=== PATIENT | female | born 1945 | race Caucasian/White ===

== ENCOUNTER → 2017-03-22 12:14 | Emergency (ER) | payer MEDICARE, MEDICAID ==
[2017-03-22 16:25] VITALS: BP 0/0
== END | disposition left against medical advice (07) ==
LOC: ED 12:14
DX: H57.10 Ocular pain, unspecified eye (principal); Z53.21 Procedure and treatment not carried out due to patient leaving prior to being seen by health care provider

== ENCOUNTER 2017-08-30 12:37 | Emergency (ER) | payer MEDICARE, MEDICAID ==
--- NOTE | 2017-08-30 14:59 | RAD ---
HISTORY: Sputum and cough COMPARISONS: March 22, 2014 VIEWS: 2: Frontal and lateral views of the chest. FINDINGS: CARDIOMEDIASTINAL SILHOUETTE: The cardiomediastinal silhouette is normal. DAKOTAH: The dakotah are normal. PLEURA: The costophrenic angles are sharp. No pleural abnormalities are noted. LUNG PARENCHYMA: There is patchy alveolar opacification of the right lung base. ABDOMEN: The upper abdomen is clear. There is no subphrenic gas. BONES AND SOFT TISSUES: The patient is status post bilateral shoulder arthroplasty. OTHER: None. IMPRESSION: PATCHY ATELECTASIS VERSUS CONSOLIDATION OF THE RIGHT LOWER LUNG.
[2017-08-30] MEDS ORDERED: Albuterol HFA INHALER* 8 gm MDI INH ONE (15:04)
[2017-08-30] MEDS ORDERED: Levofloxacin TAB* 500 MG PO ONE ×2 (15:04→15:20)
[2017-08-30] MEDS ORDERED: Levofloxacin TAB* 500 MG ONE (15:21)
[2017-08-30 15:33] VITALS: BP 143/60
--- NOTE | 2017-09-06 16:45 | ED ---
Respiratory - HPI Summary HPI Summary: Patient presents to the ED with chief complaint of cough, with production of a thick yellow sputum. She states she tried CBD oil with a spray bottle 3 days ago and has been experiencing some worsening shortness of breath since that time. On arrival her vital signs are stable and she is satting at 98% on room air. History of severe sleep apnea, and is concerned about her worsening symptoms. She denies any other concerns on this date. Denies chest pressure, chest pain, sinus pressure, other upper respiratory complaints. - History of Current Complaint Chief Complaint: EDGeneral Stated Complaint: OCCASIONAL DIFFICULTY BREATHING Time Seen by Provider: 08/30/17 13:44 Hx Obtained From: Patient Onset/Duration: Sudden Onset Timing: Constant Initial Severity: Moderate Current Severity: Moderate Pain Intensity: 0 Character: Cough (Nonproductive), Dyspnea at Rest Sputum Amount: Scant Sputum Color: Yellow, Green Aggravating Factor(s): URI Associated Signs and Symptoms: SOB, URI - Risk Factors Status Asthmaticus Risk Factors: Negative Pulmonary Embolism Risk Factors: Negative Cardiac Risk Factors: Negative Tuberculosis Risk Factors: Negative - Allergy/Home Medications Allergies/Adverse Reactions: Allergies Allergy/AdvReac Type Severity Reaction Status Date / Time Adhesive Tape Allergy Mild Unknown Verified 05/08/16 13:33 Reaction Details MS Pregabalin [From Lyrica] Allergy Swelling Verified 05/08/16 13:33 Of Face,Lips,& Throat CT dye Allergy Intermediate Shortness Uncoded 02/03/15 02:58 of Breath PMH/Surg Hx/FS Hx/Imm Hx Previously Healthy: Yes Endocrine/Hematology History: Reports: Hx Diabetes Cardiovascular History: Reports: Hx Hypertension, Other Cardiovascular Problems/ Disorders - stroke no residual Denies: Hx Congestive Heart Failure Respiratory History: Reports: Hx Sleep Apnea - CPAP GI History: Reports: Hx Gastroesophageal Reflux Disease, Hx Ulcer History: Reports: Hx Kidney Stones - left kidney Musculoskeletal History: Reports: Hx Arthritis Sensory History: Reports: Hx Contacts or Glasses, Other Sensory Impairments - dry eyes sometimes upon blinking eyes could hemorrhage Opthamlomology History: Reports: Hx Contacts or Glasses, Other Sensory Impairments - dry eyes sometimes upon blinking eyes could hemorrhage Psychiatric History: Denies: Hx Eating Disorder, Hx of Violent Episodes Against Others - Surgical History Surgery Procedure, Year, and Place: BILATERAL SHOULDER REPLACEMENTS. Hysterectomy subtotal - Immunization History Hx Pertussis Vaccination: No Immunizations Up to Date: Unable to Obtain/Confirm Infectious Disease History: No Infectious Disease History: Reports: History Other Infectious Disease - streph eating of left foot (toes) Denies: Traveled Outside the [place] in Last 30 Days - Social History Occupation: Unemployed Lives: Alone Alcohol Use: Rare Hx Substance Use: No Substance Use Type: Reports: None Hx Tobacco Use: Yes Smoking Status (MU): Former Smoker Review of Systems Constitutional: Negative Negative: Fever, Chills, Fatigue Eyes: Negative Negative: Palpitations, Chest Pain Positive: Shortness Of Breath, Cough Positive: no symptoms reported, see HPI Musculoskeletal: Negative Skin: Negative Psychological: Normal All Other Systems Reviewed And Are Negative: Yes Physical Exam Triage Information Reviewed: Yes Vital Signs On Initial Exam: Initial Vitals Temp Pulse Resp BP Pulse Ox 98.1 F 68 16 139/61 95 08/30/17 12:51 08/30/17 12:51 08/30/17 12:51 08/30/17 12:51 08/30/17 12:51 Vital Signs Reviewed: Yes Appearance: Positive: Well-Appearing, Well-Nourished Skin: Positive: Warm, Skin Color Reflects Adequate Perfusion Head/Face: Positive: Normal Head/Face Inspection Eyes: Positive: EOMI, GREGORY, Conjunctiva Clear Neck: Positive: Supple, No Lymphadenopathy Respiratory/Lung Sounds: Positive: Clear to Auscultation Cardiovascular: Positive: RRR, Pulses are Symmetrical in both Upper and Lower Extremities Musculoskeletal: Positive: Normal, Strength/ROM Intact Neurological: Positive: Speech Normal - T Psychiatric: Positive: Affect/Mood Appropriate AVPU Assessment: Alert Diagnostics - Vital Signs Vital Signs Temp Pulse Resp BP Pulse Ox 08/30/17 15:31 99 F 66 17 143/60 97 08/30/17 12:51 98.1 F 68 16 139/61 95 - Laboratory Lab Statement: Any lab studies that have been ordered have been reviewed, and results considered in the medical decision making process. Disposition - Course Course Of Treatment: During the course of treatment the patient was evaluated for shortness of breath. She is satting at 98% on room air on arrival. She is wheelchair bound. Severe sleep apnea. X-ray obtained and shows patchy atelectasis versus consolidation of the right lower lung. Due to her comorbidities, she is given antibiotics for possible early pneumonia. I have discussed that I do not believe this is due to the CBD oil, but I have advised that she discontinue. She is okay with plan and discharge and states she will follow up with her PCP regarding any worsening shortness of breath. - Diagnoses Provider Diagnoses: Shortness of breath Discharge - Discharge Plan Condition: Stable Disposition: HOME Prescriptions: Levofloxacin TAB* [Levaquin TAB*] 500 mg PO DAILY #10 tab Patient Education Materials: Pneumonia (ED) Referrals: Jey Duron MD [Primary Care Provider] - Additional Instructions: Please follow up with Dr. Oden next week As discussed, the x-ray is unclear if he may have a right lower lobe pneumonia I am placing you on preventative antibiotics for worsening symptoms Use the albuterol inhaler for shortness of breath
== END 2017-08-30 15:31 | disposition home or self-care (01) ==
LOC: ED 12:37
DX: R06.02 Shortness of breath (principal); J98.4 Other disorders of lung; Z87.891 Personal history of nicotine dependence; Z88.8 Allergy status to other drugs, medicaments and biological substances; Z91.041 Radiographic dye allergy status
CPT/HCPCS: 71046; 99282; A9270-GY

== ENCOUNTER 2018-03-31 10:33 | Emergency (ER) | payer MEDICARE, MEDICAID ==
[2018-03-31] MEDS ORDERED: NS 0.9% 1000 ML* 1,000 ML IV ONE (10:57)
--- NOTE | 2018-03-31 11:04 | ED ---
Abdominal Pain/Female - HPI Summary HPI Summary: This Pt is a 73 year old F with a chief complaint of RLQ and right flank pain since 03/30/18 PM. She states that last night she felt an "odd" but not severe pain in her right flank, and upon waking this AM she has been feeling "twinges" in her RLE, noting "tremendous" problems with her right knee, making standing and ambulation impossible for her today. Pt denies fever, N/V, hematuria, and rash. PMHx asymptomatic UTIs with pyelonephritis, paroxysmal Afib, mild CHF, hiatal hernia, and chronic pedal edema. Pt endorses chronic complex PTSD/ anxiety of hospitals. - History of Current Complaint Chief Complaint: EDAbdPain Stated Complaint: LOWER RT QUADRANT PAIN Time Seen by Provider: 03/31/18 10:41 Hx Obtained From: Patient Onset/Duration: Sudden Onset, Lasting Hours, Still Present, Worse Since - this AM, new onset RLE pain Timing: Constant Severity Initially: Mild Severity Currently: Moderate Pain Intensity: 0 Pain Scale Used: 0-10 Numeric Location: Discrete At: RLQ Radiates: Yes Radiates to: Flank Aggravating Factor(s): Nothing Alleviating Factor(s): Nothing Associated Signs and Symptoms: Negative: Fever, Urinary Symptoms, Nausea, Vomiting, Other: - rash Allergies/Adverse Reactions: Allergies Allergy/AdvReac Type Severity Reaction Status Date / Time Adhesive Tape Allergy Mild Unknown Verified 03/31/18 10:41 Reaction Details MS Pregabalin [From Lyrica] Allergy Swelling Verified 03/31/18 10:41 Of Face,Lips,& Throat CT dye Allergy Intermediate Shortness Uncoded 03/31/18 10:41 of Breath PMH/Surg Hx/FS Hx/Imm Hx Endocrine/Hematology History: Reports: Hx Diabetes Cardiovascular History: Reports: Hx Atrial Fibrillation, Hx Congestive Heart Failure, Hx Hypertension, Other Cardiovascular Problems/Disorders - stroke no residual Respiratory History: Reports: Hx Sleep Apnea - CPAP GI History: Reports: Hx Gastroesophageal Reflux Disease, Hx Ulcer History: Reports: Hx Kidney Infection, Hx Kidney Stones - left kidney, Other Problems/Disorders - UTIs with pyelonephritis Musculoskeletal History: Reports: Hx Arthritis, Other Musculoskeletal History - carpral tunnel, permanently dislocated right shoulder Sensory History: Reports: Hx Contacts or Glasses, Other Sensory Impairments - dry eyes sometimes upon blinking eyes could hemorrhage Denies: Hx Deafness Opthamlomology History: Reports: Hx Contacts or Glasses, Other Sensory Impairments - dry eyes sometimes upon blinking eyes could hemorrhage EENT History: Denies: Hx Deafness Psychiatric History: Reports: Hx Anxiety, Hx Post Traumatic Stress Disorder Denies: Hx Eating Disorder, Hx of Violent Episodes Against Others - Surgical History Surgery Procedure, Year, and Place: BILATERAL SHOULDER REPLACEMENTS. Hysterectomy subtotal Infectious Disease History: No Infectious Disease History: Reports: History Other Infectious Disease - streph eating of left foot (toes) Denies: Traveled Outside the [place] in Last 30 Days - Family History Known Family History: Positive: Cardiac Disease, Diabetes, Other - [place] Negative: Seizure Disorder - Social History Occupation: Disabled Lives: Alone Alcohol Use: Rare Hx Substance Use: No Substance Use Type: Reports: None Hx Tobacco Use: Yes Smoking Status (MU): Former Smoker Review of Systems Negative: Fever Positive: Abdominal Pain. Negative: Vomiting, Nausea Negative: hematuria Positive: Arthralgia, Myalgia, Decreased ROM, Edema Negative: Rash Positive: Anxious All Other Systems Reviewed And Are Negative: Yes Physical Exam - Summary Physical Exam Summary: Appearance: Well appearing, no pain distress Skin: warm, dry, reflects adequate perfusion Head/face: normal Eyes: EOMI, GREGORY ENT: normal Neck: supple, non-tender Respiratory: CTA, breath sounds present Cardiovascular: RRR, pulses symmetrical Abdomen: tender RLQ, soft Bowel: present Musculoskeletal: normal, strength/ROM intact. Mild bilateral pedal edema Neuro: normal, sensory motor intact, A&Ox3 Triage Information Reviewed: Yes Vital Signs On Initial Exam: Initial Vitals Temp Pulse Resp BP Pulse Ox 97.9 F 64 20 137/67 95 03/31/18 10:38 03/31/18 10:38 03/31/18 10:38 03/31/18 10:38 03/31/18 10:38 Vital Signs Reviewed: Yes Diagnostics - Vital Signs Vital Signs Temp Pulse Resp BP Pulse Ox 03/31/18 10:38 97.9 F 64 20 137/67 95 - Laboratory Result Diagrams: 03/31/18 11:07 03/31/18 11:07 Lab Statement: Any lab studies that have been ordered have been reviewed, and results considered in the medical decision making process. - Radiology CXR Xray Interpretation: No Acute Changes Radiology Interpretation Completed By: Radiologist - No active disease. Dr. James has reviewed this report. Knee XR Xray Interpretation: Positive (See Comments) Radiology Interpretation Completed By: Radiologist - 1. SEVERE OSTEOARTHRITIC CHANGE. 2. LATERAL SUBLUXATION OF THE PATELLA. Dr. James has reviewed this report. Knee XR 2 Xray Interpretation: No Acute Changes Radiology Interpretation Completed By: Radiologist - ADVANCED OSTEOARTHRITIS WITH LATERAL POSITIONING OF THE PATELLA, UNCHANGED. Dr. James has reviewed this report. - CT A/P CT Interpretation: No Acute Changes CT Interpretation Completed By: Radiologist - NONCONTRAST IMAGING DEMONSTRATES NO ACUTE CT FINDINGS. THERE IS NON OBSTRUCTIVE LEFT-SIDED NEPHROLITHIASIS WHICH IS LIKELY AN INCIDENTAL FINDING IT DOES NOT CORRELATE WITH THE PRESENTING SYMPTOMS. THE APPENDIX IS VISUALIZED AND APPEARS NORMAL. Dr. James has reviewed this report. - EKG 1117 Cardiac Rate: NL - 65 EKG Rhythm: Sinus Rhythm ST Segment: Normal Ectopy: None EKG Interpretation: No acute changes Re-Evaluation - Re-Evaluation First Eval Re-Evaluation Time: 13:30 Change: Unchanged Comment: Informed pt of subluxation of patella, tried to reduce but pt refused. Pt wants intubation, does not want to be conciously sedated. Second Eval Re-Evaluation Time: 19:04 Change: Improved Comment: Pt able to walk now, wants to go home, safe to discharge. Abdominal Pain Fem Course/Dx - Course Course Of Treatment: A 73-year-old F presents to the ED with a CC of RLQ pain since yesterday. (+) radiation to flank, and RLE pain preventing standing and ambulation. (-) rash, fever, N/V, hematuria. PMHx CHF, incontinentce, paroxysmal Afib, DM, hiatal hernia, 2x shoulder replacements, carparal tunnel, PTSD from hosptials. A CXR reveals no active disease. A RLE XR reveals 1. SEVERE OSTEOARTHRITIC CHANGE. 2. LATERAL SUBLUXATION OF THE PATELLA. A second RLE XR reveals the same findings as the first. A CT A/P reveals left sided nephrolithiasis but otherwise negative. An EKG reveals NSR at 65 BPM with no acute changes. In the ED course, pt was given nl saline. Pt shows a high BUN/ creat ratio, and a low urine specific gravity. Tried to reduce the subluxation patient complained of pain so called orthopedics for a consult for conscious sedation and reduction. As patient refused conscious sedation in the emergency room and wants to be intubated if we had to do any procedures onher - Diagnoses Differential Diagnosis: Positive: Appendicitis, Diverticulitis, Renal Colic, Urinary Tract Infection, Other - lf knee pain Provider Diagnoses: Abdominal pain, Left knee pain, Patellar subluxation - Provider Notifications Discussed Care Of Patient With: Federico Jha Time Discussed With Above Provider: 13:38 Instructed by Provider To: Other - Will see pt in ED in 2 hours. UPDATE: 1851: Will try to walk pt, have her pivot, if unable he recommends admission. Discharge - Sign-Out/Discharge Documenting (check all that apply): Patient Departure - discharge - Discharge Plan Condition: Stable Disposition: HOME Patient Education Materials: Abdominal Pain (ED), Knee Pain (ED) Referrals: Ashley Calzada MD [Primary Care Provider] - 3 Days Additional Instructions: Return to the emergency department for any new or worsening symptoms. - Billing Disposition and Condition Condition: STABLE Disposition: Home - Attestation Statements Document Initiated by Zuriibe: Yes Documenting Scribe: Reji Alvarado Provider For Whom Ayana is Documenting (Include Credential): Dr. Alan James MD Scribe Attestation: Reji Mao scribed for Dr. Alan James MD on 03/31/18 at 1935. Scribe Documentation Reviewed: Yes Provider Attestation: The documentation as recorded by the Reji nevarez accurately reflects the service I personally performed and the decisions made by me, Dr. Alan James MD
[2018-03-31 11:15] LABS: ABS Basophils 0 10^3/ul (0-0.2); ABS Eosinophils 0.1 10^3/ul (0-0.6); ABS Lymphocytes 1.5 10^3/ul (1.0-4.8); ABS Monocytes 0.5 10^3/ul (0-0.8); ABS Neutrophils 3.5 10^3/ul (1.5-7.7); ABS Nucleated RBC 0 10^3/ul; Eosinophil % 2.6 % (0-6); Hematocrit 38 % (35-47); Lymphocyte % 27.1 % (25-47); Mean Corpuscular HGB Conc 34 g/dl (31-36); Mean Corpuscular Hemoglobin 30 pg (27-31); Mean Corpuscular Volume 88 fL (80-97); Mean Platelet Volume 7.7 um3 (7.4-10.4); Nucleated Red Blood Cells % 0.1; Platelet Count 246 10^3/ul (150-450); Red Blood Count 4.36 10^6/ul (4.00-5.40); Red Cell Distribution Width 16 % (10.5-15); White Blood Count 5.7 10^3/ul (3.5-10.8)
[2018-03-31 11:48] LABS: INR 0.93 (0.77-1.02)
[2018-03-31 11:49] LABS: EGFR Non-African American 100.5 (>60)
--- NOTE | 2018-03-31 12:01 | RAD ---
INDICATION: Short of breath. CHF. COMPARISON: August 30, 2017 TECHNIQUE: An AP portable view obtained at 1125 hours is submitted. FINDINGS: Bones/Soft Tissues: There are no acute bony findings. There is shoulder arthroplasty Cardiomediastinal: The cardiomediastinal silhouette is normal. Lungs: There are no infiltrates. Pleura: There are no pleural effusions. Other: None IMPRESSION: NO ACTIVE DISEASE.
[2018-03-31 12:03] LABS: Urine Appearance Clear; Urine Blood Negative (Negative); Urine Color Straw; Urine Ketones Negative (Negative); Urine Protein Negative (Negative); Urine Specific Gravity 1.005 (1.010-1.030); Urine Urobilinogen Negative (Negative)
--- NOTE | 2018-03-31 12:52 | RAD ---
INDICATION: Left knee pain. TECHNIQUE: 4 views of the left knee were obtained. The study is limited. The patient was unable to cooperate for positioning. FINDINGS: There is lateral subluxation of the patella. No joint effusion or fracture is seen. There is severe osteoarthritic change in all 3 compartments. IMPRESSION: 1. SEVERE OSTEOARTHRITIC CHANGE. 2. LATERAL SUBLUXATION OF THE PATELLA.
--- NOTE | 2018-03-31 12:59 | RAD ---
INDICATION: Appendicitis COMPARISON: None TECHNIQUE: Noncontrast axial source images were acquired from the level hemidiaphragms to the symphysis pubis. By report there is a intravenous contrast allergy. No oral contrast was given per ED request. Lung bases: The lung bases are clear. There are surgical clips in the splenic hilar region. Liver: The liver is normal in size. Noncontrast imaging shows no evidence of a hepatic mass or ductal dilatation. Gallbladder: There are no calcified gallstones. There is no evidence of wall thickening or pericholecystic fluid.. Spleen: The spleen is normal in size. The noncontrast CT appearance is normal. Pancreas: Noncontrast imaging shows no pancreatic mass or ductal dilitation. Adrenal glands: No masses are identified. Kidneys/Bladder: There is a nonobstructive 3 mm lower pole left renal calculus There is no CT evidence of hydronephrosis. Noncontrast imaging shows no evidence of a renal mass. The bladder is unremarkable.. Adenopathy: There is no gross evidence of intraperitoneal or retroperitoneal adenopathy. Evaluation is limited without intravenous or oral contrast. Fluid collections: There are no free or localized fluid collections. Vessels: The aorta and iliac vessels are normal in caliber. There are no significant atherosclerotic changes. The IVC appears normal Pelvic organs: There is hysterectomy. There is no adnexal mass GI tract: Evaluation of the bowel is limited without oral contrast. There is prior gastric surgery. The small bowel is unremarkable. There are no acute CT bowel findings. There are scant diverticula. The appendix is visualized and appears normal. Soft tissues: No soft tissue abnormalities of the extraperitoneal abdomen or pelvis are identified. Osseous structures: There are no acute osseous findings. IMPRESSION: NONCONTRAST IMAGING DEMONSTRATES NO ACUTE CT FINDINGS. THERE IS NON OBSTRUCTIVE LEFT-SIDED NEPHROLITHIASIS WHICH IS LIKELY AN INCIDENTAL FINDING IT DOES NOT CORRELATE WITH THE PRESENTING SYMPTOMS. THE APPENDIX IS VISUALIZED AND APPEARS NORMAL.
--- NOTE | 2018-03-31 14:10 | RAD ---
INDICATION: Patellar dislocation. Reduction COMPARISON: March 31, 2018 TECHNIQUE: 2 views are submitted. FINDINGS: There is again advanced tricompartmental osteoarthritis with a genu varus deformity. The patella remains laterally positioned. There is no joint effusion IMPRESSION: ADVANCED OSTEOARTHRITIS WITH LATERAL POSITIONING OF THE PATELLA, UNCHANGED
[2018-03-31] MEDS ORDERED: busPIRone TAB* 10 MG PO ONE (14:57)
[2018-03-31] MEDS: ALPRAZolam TAB* 0.5 MG PO ONE ×2 (15:07→15:19)
[2018-03-31] MEDS ORDERED: traMADol TAB* 50 MG PO ONE (17:49)
[2018-03-31] MEDS ORDERED: Metoprolol Tartrate TAB* 25 MG PO ONE (17:52)
[2018-03-31] MEDS ORDERED: Naproxen TAB* 250 MG PO ONE (17:53)
[2018-03-31] MEDS ORDERED: Gabapentin TAB(NF) 600 MG PO ONE (17:53)
[2018-03-31] MEDS ORDERED: Lisinopril TAB* 10 MG PO ONE (18:06)
[2018-03-31 19:18] VITALS: BP 156/72
--- NOTE | 2018-03-31 23:38 | CONS ---
CONSULTATION REPORT: DATE OF CONSULT: 03/31/18 REASON FOR CONSULT: Left patella dislocation, question of. HISTORY OF PRESENT ILLNESS: The patient is a 73-year-old woman, obese, with multiple orthopedic complaints and chronic left knee pain, who presented to the emergency room at [facility] on 03/31/18 with right lower quadrant abdominal pain and right flank pain since the evening of 03/30/18, one day prior. While in the emergency room, the patient was adjusting her position on the stretcher and thought that her knee had dislocated or patella had dislocated. She developed left knee pain. She was unable to stand and pivot on that left knee. X-rays were obtained of the left knee and were readily showing patella lateral subluxation. Emergency room staff offered the patient a relocation procedure under conscious sedation, but the patient refused and wanted to be intubated. Orthopedic surgery consult was called. I was in a long operation. As soon as the operation was complete, I reported to the emergency room where I met the patient. The patient told me that she has chronic left knee pain, treated with naproxen and icing. At baseline, the patient uses a wheelchair, mechanized. She bears weight just to stand and pivot from location to location. The patient has seen orthopedic surgeons in the past regarding her left knee and she has been told that she is too obese for knee arthroplasty surgery. She states that she has had bilateral shoulder arthroplasty surgery in the past and that the right shoulder arthroplasty has been dislocated and painful for 8 years. After I examined her, the patient did admit that she was less painful than she had been several hours earlier, but she still thought that she was more painful than her baseline. The patient sustained no falls in the emergency room. There have been no recent falls that she reported to me at home. PAST MEDICAL HISTORY: Atrial fibrillation, diabetes, congestive heart failure, hypertension, stroke without residual, sleep apnea with CPAP use, gastroesophageal reflux disease, ulcer, kidney infection, kidney stones, urinary tract infections with pyelonephritis, osteoarthritis multiple joints, carpal tunnel syndrome bilaterally, anxiety, post traumatic stress disorder. PAST SURGICAL HISTORY: Bilateral shoulder arthroplasty, subtotal hysterectomy. ALLERGIES: ADHESIVE TAPE (unknown), PREGABALIN, LYRICA (swelling of face, lips and throat), CT SCAN DYE (shortness of breath). FAMILY HISTORY: Positive for cardiac disease, diabetes, cancer. SOCIAL HISTORY: The patient lives alone, rare alcohol use, disabled, former smoker. The patient is minimally mobile. She bears weight just to turn and pivot and uses a mechanized wheelchair. REVIEW OF SYSTEMS: Positive for abdominal pain, myalgia, pain in multiple joints, anxiety. Negative for fevers, sweats, chills or hematuria. Negative for new onset left lower extremity numbness or tingling. PHYSICAL EXAM: Vital signs at 10:38 a.m. on 03/31/18 demonstrates temperature 97.9 degrees Fahrenheit, pulse 64, respiratory rate 20, BP 137/67 and pulse oximetry 95% on room air. No acute distress. The patient is nontoxic appearing. Alert and oriented. The patient's mood was somewhat coarse. The patient almost immediately started complaining to me about her chronic knee pain and posttraumatic stress disorder as if they were my fault. The patient lying supine on stretcher in emergency department suite. The patient appeared comfortable while not moving. The patient is morbidly obese. Body mass index unavailable, but clearly greater than 40. Left knee exam showed no effusion. No soft tissue swelling or bruising. Skin is intact. Pain with palpation in the medial and lateral joint lines, passive range of motion, the knee was 10 to 80 degrees of flexion. Pain with terminal ranges of motion. Tenderness to palpation of the patellofemoral compartment. Neurovascularly intact distally. DIAGNOSTIC STUDIES/LAB DATA: Imaging: X-ray views, 4-views of the left knee obtained in the emergency room on 03/31/18 demonstrates severe rkji-kz-[id number] joint space narrowing of all 3 compartments medial, lateral and patello- femoral. There is significant lateral subluxation of the tibia on the fibula. I measure this to be 1.5 cm. There is no anterior to posterior subluxation of the knee joint. The patient has multiple calcifications and osteophytes about the patellofemoral compartment. Mackay view demonstrates [id number], joint space narrowing as well as position of the patella to the lateral aspect of the trochlear groove. However, or near entirety of the patella is located in the trochlear groove. There was significant osteophyte of the lateral aspect of the patella that is outside of the groove. ASSESSMENT: 1. Left knee severe osteoarthritis. 2. Left knee pain. 3. No evidence of left patella instability episode. PLAN: 1. The patient was quite fixated on the idea of her patella dislocating or subluxing when I first met her. 2. I explained to the patient that her patella is likely now in the place it always is. It would be unlikely that adjusting herself in her stretcher would cause a patella instability event. Likewise she would not be able to flex her knee from 10 to 80 degrees with a new onset instability event. Likewise her imaging shows the patella to be present in the trochlear groove. The patient seemed to understand and acknowledge. 3. We started to talk about the treatment spectrum for severe knee osteoarthritis. The patient is already taking a NSAID and icing her knees. The patient at first asked for a cortisone injection but was then uninterested in the cortisone injection when I told her it would take 2 to 3 days to work. 4. The patient then expressed interest at my urging at seeing if her knee had improved and she would be safe to return home. 5. The patient got up with nursing and was able to turn and pivot on her leg, so she felt comfortable going home. 6. The patient was undergoing a workup by ER staff for flank pain. The patient left against medical advise is my understanding, prior to the completion of that but I would defer to emergency room staff on this. 7. The patient is welcome to follow up with me in clinic for her severe left knee pain and osteoarthritis. I would be happy to see her anytime for what must be a very painful problem. [id number]/CPS #: [id number]
== END 2018-03-31 19:16 | disposition home or self-care (01) ==
LOC: ED 10:33
DX: R10.31 Right lower quadrant pain (principal); S83.103 Unspecified subluxation of unspecified knee; M25.562 Pain in left knee; X58.XXXA Exposure to other specified factors, initial encounter; Y92.9 Unspecified place or not applicable; Z87.891 Personal history of nicotine dependence
CPT/HCPCS: 36415; 71045; 74176; 80053; 81003; 83605; 83690; 84484; 85025; 85610; 85730; 93005; 99283; A9270-GY

== ENCOUNTER 2019-10-06 10:45 | Emergency (ER) | payer MEDICARE, MEDICAID ==
--- OUTSIDE RECORDS SUMMARY | 2019-10-06 10:55 | XMS REPORT ---
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 08-14 Malnoske cy cy RN (chronic) (chronic) (peripheral (peripheral ) ) Lymphedema, Lymphedema, Diagnosis Active 2014-08 [place] not not 08-14 Malnoske elsewhere elsewhere RN classified classified Pain in Pain in Diagnosis Active 2014-08 [place] left knee left knee 08-14 Malnoske RN Difficulty Difficulty Diagnosis Active 2014-08 [place] in walking, in walking, 08-14 Mal[place] not not RN elsewhere elsewhere classified classified Morbid Morbid Diagnosis Active 2014-08 [place] (severe) (severe) 08-14 Malnoske obesity due obesity due RN to excess to excess calories calories 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 [place] tic stress tic stress 08-14 Malnoske disorder, disorder, RN unspecified unspecified Obstructive Obstructive Diagnosis Active [place] sleep apnea sleep apnea Malnoske (adult) (adult) RN (pediatric) (pediatric) 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, disorder, Malnoske unspecified unspecified RN 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 RN Prsnl hx of Prsnl hx of Diagnosis Active [place] TIA (TIA), TIA (TIA), Malnoske and cereb and cereb RN infrc w/o infrc w/o resid resid deficits deficits Patient's Patient's Diagnosis Active [place] other other [place] noncomplian noncomplian RN ce with ce with medication medication regimen regimen [facility] rn long term care Diagnosis Active [place] (current) (current) [place] use of use of RN aspirin aspirin Respiratory treatments Respirator Resolve 2014-082016-09-25 Carmelita ordered y d 1-11 11:45:00 Dale [id number] Safety knowledge/s Safety Resolve 2016-02-08 Kayleigh kill d 09-15 15:04:00 Sinnigen deficit: pt 15:30: [id number] Diagnoses knowledge/s Diagnoses Active Tammee kill 09-15 [place] deficit: pt 15:30: an 00 Pain frequent Pain Mgmt Resolve 2018-10-21 Carmelita pain d 10-10 11:00:00 Dale 14:30: [id number] 00 Pain knowledge/s Pain Mgmt Resolve 2015-10-11 Carmelita kill d 10-10 14:30:00 Dale deficit: cg 14:30: [id number] 00 Cardio hypertensio Cardiovasc Resolve 2016-09-25 Carmelita n ular d 10-10 11:45:00 Dale 14:30: [id number] 00 Cardio knowledge/s Cardiovasc Resolve 2016-09-25 Carmelita kill ular d 10-10 11:45:00 Dale deficit: cg 14:30: [id number] 00 Respiratory dyspnea Respirator Resolve 2017-06-18 Carmelita present y d 10-10 11:47:00 Dale 14:30: [id number] 00 Respiratory oxygen Respirator Resolve 2017-06-18 Carmelita treatments y d 10-10 11:47:00 Dale in home 14:30: [id number] 00 Respiratory lung sounds Respirator Resolve 2016-05-01 Carmelita deficit y d 10-10 14:30:00 Dale 14:30: [id number] 00 Respiratory CPAP Respirator Resolve 2017-06-18 Carmelita treatments y d 10-10 11:47:00 Dale in home 14:30: [id number] 00 Respiratory knowledge/s Respirator Resolve 2015-10-11 Carmelita kill y d 10-10 14:30:00 Dale deficit: cg 14:30: [id number] 00 Nutrition knowledge/s Nutrition Resolve 2015-10-11 Carmelita kill d 10-10 14:30:00 Dale deficit: cg 14:30: [id number] 00 Neuro anxiety Neuro/Emot Resolve 2016-02-08 Carmelita present ion d 10-10 15:04:00 Dale 14:30: [id number] 00 Neuro depressive Neuro/Emot Resolve 2016-02-08 Carmelita feelings ion d 10-10 15:04:00 Dale present 14:30: [id number] 00 Neuro knowledge/s Neuro/Emot Resolve 2016-02-08 Carmelita kill ion d 10-10 15:04:00 Dale deficit: pt 14:30: [id number] 00 Neuro knowledge/s Neuro/Emot Resolve 2016-02-08 Carmelita kill ion d 10-10 15:04:00 Dale deficit: cg 14:30: [id number] 00 Activity knowledge/s Activity Resolve 2015-10-11 Carmelita kill d 10-10 14:30:00 Dale deficit: cg 14:30: [id number] 00 Safety safety Safety Resolve 2015-10-11 Carmelita hazards d 10-10 14:30:00 Dale present 14:30: [id number] 00 Safety fall risk Safety Resolve 2015-10-11 Carmelita factor d 10-10 14:30:00 Dale present 14:30: [id number] 00 Safety risk for Safety Resolve 2015-10-11 Carmelita hospitaliza d 10-10 14:30:00 Dale tion 14:30: [id number] 00 Diagnoses knowledge/s Diagnoses Active Carmelita kill 10-10 Dale deficit: cg 14:30: [id number] 00 Musculoskel knowledge/s Musculoske Resolve 2015-10-11 Carmelita etal kill letal d 10-10 14:30:00 Dale deficit: cg 14:30: [id number] 00 Nutrition knowledge/s Nutrition Resolve 2016-09-25 Kayleigh kill d 10-12 11:45:00 Sinnigen deficit: cg 15:30: [id number] 00 Safety safety Safety Active Kayleigh hazards - Sinnigen present 15:30: [id number] 00 Safety fall risk Safety Active Kayleigh factor - Sinnigen present 15:30: [id number] 00 Safety risk for Safety Active Kayleigh hospitaliza - Sinnigen tion 15:30: [id number] 00 Cardio edema Cardiovasc Resolve 2016-09-25 Carmelita ular d 3-18 11:45:00 Dale 15:30: [id number] 00 Pain frequent Pain Mgmt Unknown Moon pain 12-05 Danilo 16:31: [id number] 00 Pain knowledge/s Pain Mgmt Resolve 2016-02-08 Moon kill d 12-05 15:04:00 Danilo deficit: cg 16:31: [id number] 00 Cardio knowledge/s Cardiovasc Unknown Moon kill ular 12-05 Danilo deficit: cg 16:31: [id number] 00 Respiratory knowledge/s Respirator Resolve 2015-12-06 Moon kill y d 12-05 16:31:00 Danilo deficit: cg 16:31: [id number] 00 Integument skin Integument Resolve 2016-02-08 Moon integrity d 12-05 15:04:00 Danilo risk 16:31: [id number] 00 Elimination urinary Eliminatio Resolve 2016-02-08 Moon incontinenc n d 12-05 15:04:00 Danilo e 16:31: [id number] 00 Activity knowledge/s Activity Resolve 2016-02-08 Moon kill d 12-05 15:04:00 Danilo deficit: cg 16:31: [id number] 00 Respiratory knowledge/s Respirator Resolve 2016-02-08 Moon kill y d 12-20 15:04:00 Danilo deficit: cg 15:49: [id number] 00 Respiratory knowledge/s Respirator Unknown 2016-02-08 Kayleigh kill y 01-10 15:04:00 Sinnigen deficit: pt 15:30: [id number] 00 Medication injectable Meds Resolve 2016-02-08 Moon med d 02-07 15:04:00 Danilo assistance 15:04: [id number] required 00 Cardio hypertensio Cardiovasc Unknown Moon n ular 02-22 Danilo 09:45: [id number] 00 Elimination urinary Eliminatio Resolve 2016-02-23 Moon incontinenc n d 02-22 09:45:00 Danilo aggarwal 09:45: [id number] 00 Elimination ostomy Eliminatio Resolve 2016-04-17 Moon present n d 02-22 11:53:00 Danilo 09:45: [id number] 00 Elimination urinary Eliminatio Resolve 2016-04-17 Susan incontinenc n d 03-20 11:53:00 Damar e 10:03: [id number] 00 Neuro anxiety Neuro/Emot Resolve 2016-08-21 Moon present ion d 04-05 12:10:00 Danilo 15:49: [id number] 00 Neuro depressive Neuro/Emot Resolve 2016-08-21 Moon feelings ion d 04-05 12:10:00 Danilo present 15:49: [id number] 00 Neuro knowledge/s Neuro/Emot Resolve 2016-08-21 Moon kill ion d 04-05 12:10:00 Danilo deficit: pt 15:49: [id number] 00 Neuro knowledge/s Neuro/Emot Resolve 2016-08-21 Moon kill ion d 04-05 12:10:00 Danilo deficit: cg 15:49: [id number] 00 Activity ADL Activity Resolve 2016-06-19 Moon assistance d 04-05 11:30:00 Danilo required 15:49: [id number] 00 Activity knowledge/s Activity Resolve 2016-05-01 Moon kill d 04-05 14:30:00 Danilo deficit: cg 15:49: [id number] 00 Elimination urinary Eliminatio Resolve 2016-05-01 Susan incontinenc n d 04-24 14:30:00 Damar e 15:00: [id number] 00 Elimination urinary Eliminatio Resolve 2016-05-01 Susan frequency n d 04-24 14:30:00 Damar 15:00: [id number] 00 Respiratory lung sounds Respirator Unknown 2015-08 Susan deficit y 0-05 Damar 14:00: [id number] 00 Elimination urinary Eliminatio Resolve 2015-082016-05-15 Moon incontinenc n d 14:11:00 Danilo aggarwal 14:11: [id number] 00 Elimination urinary Eliminatio Resolve 2015-082016-05-29 Moon incontinenc n d 13:42:00 Danilo aggarwal 13:42: [id number] 00 Respiratory lung sounds Respirator Resolve 2015-082016-07-03 Susan deficit y d 08-05 14:12:00 Damar 12:38: [id number] 00 Respiratory CPAP Respirator Unknown 2015-08 Moon treatments y 08-06 Carrasco in home 14:31: [id number] 00 Respiratory dyspnea Respirator Unknown 2015-08 Moon present y 08-06 Carrasco 14:31: [id number] 00 Elimination urinary Eliminatio Resolve 2015-082016-06-06 Moon incontinenc n d 08-06 14:31:00 Carrasco e 14:31: [id number] 00 Integument skin Integument Active 2015-08 Moon integrity 09-02 Carrasco risk 14:12: [id number] 00 Elimination urinary Eliminatio Resolve 2015-082016-07-03 Moon incontinenc n d 09-02 14:12:00 Danilo e 14:12: [id number] 00 Elimination urinary Eliminatio Resolve 2015-082016-08-09 Moon incontinenc n d -14 10:32:00 Danilo aggarwal 12:00: [id number] 00 Respiratory lung sounds Respirator Resolve 2015-082016-08-21 Moon deficit y d 10-01 12:10:00 Danilo 10:43: [id number] 00 Cardio edema Cardiovasc Unknown Moon ular 08-09 Danilo 10:32: [id number] 00 Respiratory dyspnea Respirator Unknown Moon present y 08-09 Danilo 10:32: [id number] 00 Activity ADL Activity Resolve 2016-08-21 Moon assistance d 08-09 12:10:00 Danilo required 10:32: [id number] 00 Musculoskel transfer Musculoske Resolve 2016-09-25 Moon etal assistance letal d 08-09 11:45:00 Danilo required 10:32: [id number] 00 Musculoskel knowledge/s Musculoske Resolve 2016-09-25 Moon etal kill letal d 08-09 11:45:00 Danilo deficit: cg 10:32: [id number] 00 Nutrition nutritional Nutrition Resolve 2016-11-20 Moon restriction d 08-21 09:45:00 Danilo kirby 12:10: [id number] 00 Neuro depressive Neuro/Emot Resolve 2019-02-10 Moon feelings ion d 09-11 09:00:00 Danilo present 13:00: [id number] 00 Neuro anxiety Neuro/Emot Resolve 2019-02-10 Moon present ion d 09-11 09:00:00 Danilo 13:00: [id number] 00 Cardio edema Cardiovasc Resolve 2017-06-18 Moon ular d 10-07 11:47:00 Danilo 13:05: [id number] 00 Respiratory dyspnea Respirator Unknown Moon present y 10-07 Danilo 13:05: [id number] 00 Activity ADL Activity Resolve 2017-06-18 Moon assistance d 10-07 11:47:00 Danilo required 13:05: [id number] 00 Musculoskel transfer Musculoske Resolve 2016-10-23 Moon etal assistance letal d 10-07 11:30:00 Danilo required 13:05: [id number] 00 Respiratory treatments Respirator Resolve 2017-10-22 Susan ordered y d 10-30 12:00:00 Damar 11:00: [id number] 00 Nutrition knowledge/s Nutrition Resolve 2016-11-20 Susan kill d 10-30 09:45:00 Damar deficit: cg 11:00: [id number] 00 Respiratory dyspnea Respirator Unknown Susan present y 10-31 Damar 11:30: [id number] 00 Respiratory dyspnea Respirator Unknown Susan present y 11-13 Damar 13:45: [id number] 00 Respiratory dyspnea Respirator Unknown Purnima present y 11-27 Burgess 10:30: [id number] 00 Respiratory CPAP Respirator Unknown Purnima treatments y 4- Burgess in home 10:30: [id number] 00 Nutrition nutritional Nutrition Resolve 2017-05-21 Purnima restriction d 12-04 13:07:00 Burgess s 10:00: [id number] 00 Respiratory dyspnea Respirator Unknown Susan present y 12-11 Damar 12:15: [id number] 00 Test/Treatm tests Test/Injec Resolve 2017-12-31 Purnima ent ordered t/Rashard d 12-18 11:45:00 Burgess [id number] Respiratory dyspnea Respirator Unknown Susna present y 12-25 Damar 12:20: [id number] 00 Musculoskel transfer Musculoske Unknown Purnima etal assistance letal 01-01 Burgess required 09:45: [id number] 00 Musculoskel requires Musculoske Unknown Purnima etal human letal 01-01 Burgess assist to 09:45: [id number] leave home 00 Respiratory dyspnea Respirator Unknown Susan present y 01-08 Damar 11:50: [id number] 00 Respiratory lung sounds Respirator Unknown Susan deficit y 01-15 Damar 13:00: [id number] 00 Respiratory dyspnea Respirator Unknown Juliana present y 01-29 Wilbert 11:15: [id number] 00 Respiratory dyspnea Respirator Unknown Susan present y 02-19 Damar 10:38: [id number] 00 Cardio knowledge/s Cardiovasc Resolve 2017-09-30 Juliana kill ular d 03-05 11:00:00 Wilbert deficit: cg 12:13: [id number] 00 Respiratory dyspnea Respirator Unknown Susan present y 03-12 Damar 10:51: [id number] 00 Musculoskel requires Musculoske Unknown Juliana etal human letal 03-19 Wilbert assist to 11:56: [id number] leave home 00 Respiratory dyspnea Respirator Unknown Juliana present y 03-24 Wilbert 12:05: [id number] 00 Nutrition knowledge/s Nutrition Resolve 2017-05-21 Juliana kill d 03-24 13:07:00 Wilbert deficit: cg 12:05: [id number] 00 Respiratory dyspnea Respirator Unknown Tammee present y 04-02 Amina-Hor 11:38: an 00 Musculoskel requires Musculoske Resolve 2018-12-30 Juliana etal human letal d 04-02 09:56:00 Wilbert assist to 11:38: [id number] leave home 00 Respiratory dyspnea Respirator Unknown Susan present y 9 Damar 15:15: [id number] 00 Musculoskel transfer Musculoske Resolve 2018-12-30 Juliana etal assistance letal d 04-30 09:56:00 Wilbert required 13:23: [id number] 00 Respiratory dyspnea Respirator Unknown 2016-08 Susan present y 0- Damar 11:59: [id number] 00 Cardio knowledge/s Cardiovasc Resolve 2016-082017-09-30 [place] kill ular d 0-11 11:00:00 Malnoske deficit: pt 11:35: RN 00 Cardio hypertensio Cardiovasc Resolve 2016-082017-06-18 [place] n ular d 0-11 11:47:00 Malnoske 11:35: RN 00 Elimination urinary Eliminatio Resolve 2016-082017-05-21 [place] incontinenc n d 0-11 13:07:00 Malnoske e 11:35: RN 00 Elimination bowel Eliminatio Resolve 2016-082017-05-21 [place] incontinenc n d 0-11 13:07:00 Malnoske e 11:35: RN 00 Medication potential Meds Resolve 2016-082017-06-18 [place] clinically d 0-11 11:47:00 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 Respiratory dyspnea Respirator Unknown 2016-08 [place] present y 0-18 Malnoske 13:07: RN 00 Nutrition knowledge/s Nutrition Resolve 2016-082017-05-21 [place] kill d 0-18 13:07:00 Malnoske deficit: pt 13:07: RN 00 Musculoskel requires Musculoske Resolve 2016-082018-12-30 [place] etal special letal d 0-18 09:56:00 Malnoske transportat 13:07: RN ion 00 Respiratory dyspnea Respirator Unknown 2016-08 Susan present y 0-25 Damar 13:00: [id number] 00 Nutrition nutritional Nutrition Resolve 2016-082017-12-17 [place] restriction d 0-26 12:29:00 Malnoske s 14:20: RN 00 Nutrition knowledge/s Nutrition Resolve 2016-082017-12-17 [place] kill d 0-26 12:29:00 Malnoske deficit: pt 14:20: RN 00 Elimination urinary Eliminatio Resolve 2016-082017-06-18 [place] incontinenc n d 0- 11:47:00 Malnoske e 14:20: RN 00 Respiratory dyspnea Respirator Unknown 2016-08 Milagros present y 08-18 Alexandro Roya 12:53: [id number] 00 Respiratory dyspnea Respirator Resolve 2016-082018-01-28 Milagros present y d 09-01 11:42:00 Alexandro Roya 11:34: [id number] 00 Cardio edema Cardiovasc Resolve 2016-082018-12-30 [place] ular d 2-13 09:56:00 Malnoske 10:40: RN 00 Elimination urinary Eliminatio Resolve 2016-082017-08-27 [place] incontinenc n d 2-13 11:50:00 Malnoske e 10:40: RN 00 Activity ADL Activity Resolve 2016-082019-07-20 [place] assistance d 2-26 10:28:00 Malnoske required 09:45: RN 00 Respiratory pneumonia Respirator Resolve 2017-09-30 [place] y d 1- 11:00:00 Malnoske 09:50: RN 00 Elimination urinary Eliminatio Resolve 2017-09-30 Susan incontinenc n d 1- 11:00:00 Damar e 11:29: [id number] 00 Medication potential Meds Resolve 2018-03-25 [place] clinically d 2-21 11:00:00 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 Respiratory oxygen Respirator Resolve 2018-01-28 [place] treatments y d 2-27 11:42:00 Malnoske in home 11:00: RN 00 Respiratory CPAP Respirator Resolve 2018-01-28 Susan treatments y d 3-14 11:42:00 Damar in home 12:20: [id number] 00 Elimination urinary Eliminatio Resolve 2017-10-22 [place] incontinenc n d 3-21 12:00:00 Malnoske e 12:00: RN 00 Elimination urinary Eliminatio Resolve 2017-12-17 [place] incontinenc n d 4-18 12:29:00 Malnoske e 10:37: RN 00 Medication oral med Meds Resolve 2018-03-25 Juliana assistance d 11-28 11:00:00 Wilbert required 14:17: [id number] 00 Endo/Marquis anti-coagul Endo/Marquis Resolve 2018-12-30 [place] ation d 12-31 09:56:00 Malnoske therapy 11:45: RN 00 Nutrition nutritional Nutrition Resolve 2018-06-17 [place] restriction d 12-31 10:01:00 Malnoske s 11:45: RN 00 Elimination urinary Eliminatio Resolve 2018-01-28 [place] incontinenc n d 12-31 11:42:00 Malnoske e 11:45: RN 00 Respiratory lung sounds Respirator Resolve 2019-02-10 Tiki deficit y d 01-28 09:00:00 Guidelli 11:42: [id number] 00 OT: Self self-care OT: Active Keshia Care deficit Self-Care 02-12 Jeison 13:00: [id number] 00 OT: Self knowledge/s OT: Active Keshia Care kill Self-Care 02-12 Jeison deficit: pt 13:00: [id number] 00 Respiratory oxygen Respirator Resolve 2019-02-10 Lori treatments y d 02-25 09:00:00 [place]-Zos in home 08:32: h [id number] 00 Elimination urinary Eliminatio Resolve 2019-01-13 Lori incontinenc n d 02-25 09:45:00 Yakov-Zos e 08:32: h [id number] 00 Respiratory dyspnea Respirator Resolve 2019-02-10 Juliana present y d 03-25 09:00:00 Denny 11:00: [id number] 00 Medication oral med Meds Resolve 2018-06-17 Lori assistance d 04-22 10:01:00 Yakov-Zos required 10:16: h [id number] 00 Nutrition nutritional Nutrition Resolve 2017-082019-01-13 Lori restriction d 09-15 09:45:00 [place]-Zos s 10:25: h [id number] 00 Neuro impaired Neuro/Emot Resolve 2017-082019-07-20 Lori decision-ma ion d 2-20 10:28:00 Yakov-Zos johny 10:55: h [id number] 00 Neuro behavior Neuro/Emot Resolve 2017-082019-07-20 Lori problems ion d 2-20 10:28:00 [place]-Zos 10:55: h [id number] 00 Endo/Marquis glucose Endo/Marquis Resolve 2018-12-30 Laura testing d 2- 09:56:00 Violette, dependence 14:40: [id number] 00 Medication oral med Meds Resolve 2018-09-24 Laura assistance d 2- 14:40:00 Violette, required 14:40: [id number] 00 Endo/Marquis anti-coagul Endo/Marquis Resolve 2019-02-10 Juliana ation d 6-05 09:00:00 Arboleda therapy 09:50: 00 Musculoskel transfer Musculoske Resolve 2019-06-16 Juliana freedl assistance letal d 6- 10:30:00 Arboleda required 09:50: 00 Nutrition nutritional Nutrition Resolve 2019-02-10 Juliana restriction d 6- 09:00:00 Arboleda s 09:10: 00 Elimination urinary Eliminatio Resolve 2019-02-10 Juliana incontinenc n d 6- 09:00:00 Robles e 09:10: 00 Musculoskel requires Musculoske Resolve 2019-06-16 Juliana etal special letal d 8-07 10:30:00 Robles transportat 10:35: ion 00 Medication potential Meds Active Juliana clinically 8-20 Arboleda significant 11:05: medication 00 issue Cardio edema Cardiovasc Resolve 2018-082019-06-16 [place] ular d 0-02 10:30:00 Mal[place]ke 10:30: RN 00 Cardio knowledge/s Cardiovasc Resolve 2018-082019-06-16 [place] kill ular d 0-02 10:30:00 Malnoske deficit: pt 10:30: RN 00 Musculoskel requires Musculoske Resolve 2018-082019-06-16 [place] etal human letal d 0-02 10:30:00 Malnoske assist to 10:30: RN leave home 00 Pain frequent Pain Mgmt Resolve 2018-082019-06-16 [place] pain d 0-16 10:30:00 Malnoske 10:15: RN 00 Respiratory dyspnea Respirator Resolve 2018-082019-07-20 [place] present y d 0-16 10:28:00 Malnoske 10:15: RN 00 Respiratory oxygen Respirator Resolve 2018-082019-07-20 [place] treatments y d 0-16 10:28:00 Malnoske in home 10:15: RN 00 Elimination urinary Eliminatio Resolve 2018-082019-05-19 [place] incontinenc n d 0-16 10:15:00 Malnoske e 10:15: RN 00 Elimination urinary Eliminatio Resolve 2018-082019-06-16 Juliana incontinenc n d 0-30 10:30:00 Stacey e 11:00: [employer] 00 [id number] Respiratory CPAP Respirator Resolve 2018-082019-07-20 [place] treatments y d 1-13 10:28:00 Malnoske in home 10:30: RN 00 Cardio edema Cardiovasc Resolve 2018-082019-08-11 [place] ular d 2-11 10:22:00 Malnoske 10:15: RN 00 Musculoskel requires Musculoske Unknown 2018-08 [place] etal human letal 2-11 Malnoske assist to 10:15: RN leave home 00 Musculoskel requires Musculoske Resolve 2018-082019-07-20 [place] etal special letal d 2-11 10:28:00 Malnoske transportat 10:15: RN ion 00 Pain frequent Pain Mgmt Resolve 2018-082019-07-20 [place] pain d 2-17 10:28:00 Malnoske 10:28: RN 00 Respiratory knowledge/s Respirator Resolve 2018-082019-07-20 [place] kill y d 2-17 10:28:00 Malnoske deficit: pt 10:28: RN 00 Elimination urinary Eliminatio Resolve 2018-082019-07-20 [place] incontinenc n d 2-17 10:28:00 Malnoske e 10:28: RN 00 Elimination urinary Eliminatio Resolve 2018-082019-08-11 Juliana incontinenc n d 2-26 10:22:00 Stacey e 09:00: [employer] 00 [id number] Musculoskel requires Musculoske Active [place] etal human letal 08-11 Malnoske assist to 10:22: RN leave home 00 Musculoskel requires Musculoske Active 0 [place] etal special letal 08-11 Malnoske transportat 10:22: RN ion 00 Pain frequent Pain Mgmt Active [place] pain 2-14 Malnoske 10:30: RN 00 Activity ADL Activity Active [place] assistance 2-14 Malnoske required 10:30: RN 00 Allergies, Adverse Reactions, Alerts Allergy Allergy Type Status Severity Reaction(s) Onset Inactive Treating Comments Name Date Date Clinician CONT Unknown Active Unknown Reaction 2015-09 Mae Unknown -29 Gerard Lyrica Medication Active Unknown Reaction 2015-09 Mae Name ID - Gerard TAPE Unknown Active Unknown Reaction 2015-09 Mae Unknown -29 Gerard Medications Ordered Filled Start Stop Current Ordering Indication Dosage Frequency Signature Comments Components Medication Medication Date Date Medication? Clinician (SIG) Name Name clotrimazol clotrimazol 2014-08- No Roth 1 Unknown e 1 % e 1 % 08-14 Jan LOPEZ topical topical cream cream Flonase Flonase 2014-08 No Roth 1 Unknown Allergy Allergy 08-14 Jan LOPEZ Relief 50 Relief 50 mcg/actuati mcg/actuati on nasal on nasal spray,suspe spray,suspe nsion nsion quinapril quinapril 2014-08 No Roth 1 Unknown 20 mg 20 mg 08-14 Jan LOPEZ tablet tablet Restasis Restasis 2014-08 No Roth 1 drop Unknown 0.05 % eye 0.05 % eye 08-14 Jan LOPEZ drops in a drops in a dropperette dropperette omeprazole omeprazole 2014-08 No Roth 1 cap Unknown 20 mg 20 mg 08-14 Jan LOPEZ capsule,del capsule,del ayed ayed release release Pataday 0.2 Pataday 0.2 2014-08 No Roth 1 drop Unknown % eye drops % eye drops 08-14 Jan LOPEZ ALPRAZolam ALPRAZolam 2014-08 No Roth 1 tab Unknown 0.5 mg 0.5 mg 08-14 Jan LOPEZ tablet tablet clotrimazol clotrimazol 2014-08 No Roth 1 Unknown e-betametha e-betametha 08-14 Jan LOPEZ applica sone 1 sone 1 tion %-0.05 % %-0.05 % lotion lotion busPIRone busPIRone 2014-08- No Roth 1 Unknown 10 mg 10 mg 08-14 Jan LOPEZ tablet tablet metFORMIN metFORMIN 2014-08 No Roth 1 tab Unknown 1,000 mg 1,000 mg 08-14 Jan LOPEZ tablet tablet cyclobenzap cyclobenzap 2014-08- No Roth 1 tab Unknown rine 10 mg rine 10 mg 08-14 Jan LOPEZ tablet tablet gabapentin gabapentin 2014-08 No Roth - Unknown 600 mg 600 mg 09-07 Jan LOPEZ tabs tablet tablet naproxen naproxen 2014-08 No Roth 1 tab Unknown 500 mg 500 mg 09-07 Jan LOPEZ tablet tablet vit C 1,000 vit C 1,000 2014-08 No Roth 3000mg Unknown mg-rutin 50 mg-rutin 50 - Jan LOPEZ mg-hesper mg-hesper 50 50 mg-bioflv-r mg-bioflv-r ose ose tablet,ext. tablet,ext. release release Redfield 3 Redfield 3 2014-08 No Roth 2400mg Unknown Fish Oil Fish Oil - Jan LOPEZ 684 684 mg-1,200 mg mg-1,200 mg capsule,del capsule,del ayed ayed release release Glucosamine Glucosamine 2014-08 No Roth 1500mg Unknown 500 mg 500 mg 09-07- Jan LOPEZ tablet tablet magnesium magnesium 2014-08 No Roth 1600mg Unknown oxide 400 oxide 400 09-21 Jan LOPEZ mg (241.3 mg (241.3 mg mg magnesium) magnesium) tablet tablet traMADol 50 traMADol 50 2016- No Roth 50-75mg Unknown mg tablet mg tablet 08-25 Jan LOPEZ PROzac 20 PROzac 20 No Roth 1 cap Unknown mg capsule mg capsule 08-25 Jan LOPEZ metoprolol metoprolol 2014-08- No Roth 1 Unknown succinate succinate 08-14 Jan LOPEZ ER 25 mg ER 25 mg tablet,exte tablet,exte nded nded release 24 release 24 hr hr Glucosamine Glucosamine 2014-08 No Roth 1000mg Unknown 500 mg 500 mg 2- Jan LOPEZ tablet tablet metFORMIN metFORMIN 2014-08 No Roth 1 tab Unknown 1,000 mg 1,000 mg 08-14 Jan LOPEZ tablet tablet Oxygen Oxygen 2014-08 No Roth 2 L Unknown 08-14 Jan LOPEZ oxygen oxygen 2014-08 No Roth 2 Unknown 08-14 Jan LOPEZ liters Voltaren 1 Voltaren 1 2015- No Roth 4 grams Unknown % topical % topical 12-12 Jan LOPEZ gel gel cyclobenzap cyclobenzap 2014-08 No [place] 1 tab Unknown rine 10 mg rine 10 mg 08-14 ,Can tablet tablet Dinesh Voltaren 1 Voltaren 1 2018- No [place] 4 grams Unknown % topical % topical 12-12 Can LOPEZ gel Dinesh MSM 1,000 MSM 1,000 No [place] 1 tab Unknown mg tablet mg tablet 10-23 Can LOPEZ milk milk 2016- No [place] 2 caps Unknown thistle 175 thistle 175 10-23 Can LOPEZ mg tablet mg tablet Dinesh milk milk No [place] 1 Unknown thistle 350 thistle 350 10-30 Can LOPEZ capusle mg capsule mg capsule Dinesh (350 mg traMADol 50 traMADol 50 2016- No Roth 50-75mg Unknown mg tablet mg tablet 10-30 Jan LOPEZ aspirin 81 aspirin 81 No [place] 1 Unknown mg chewable mg chewable 11-29 Can LOPEZ tablet tablet tablet Dinesh (81 Mg) acetaminoph acetaminoph No [place] 2 Unknown en 500 mg en 500 mg 12-18 Can LOPEZ tablets tablet tablet Dinesh (1000mg ) busPIRone busPIRone 2016- No [place] 1 Unknown 10 mg 10 mg 01-01 Can LOPEZ tablet tablet Dinesh naproxen naproxen 2016- No [place] 1 tab Unknown 500 mg 500 mg 01-08 Can LOPEZ tablet,juan tablet,juan Dinesh yed release yed release busPIRone busPIRone No [place] 1 Unknown 10 mg 10 mg 5 Can LOPEZ tablet tablet Dinesh traMADol 50 traMADol 50 2018- No Keene 50-75mg Unknown mg tablet mg tablet 10-30 Can LOPEZ Vitamin D3 Vitamin D3 2016-08 No [place] 1,000 Unknown 1,000 unit 1,000 unit 0 Can LOPEZ Unit capsule capsule Dinesh levoFLOXaci levoFLOXaci 2017- No [place] 500mg Unknown n 500 mg n 500 mg 09-01 Can LOPEZ tablet tablet Dinesh naproxen naproxen No [place] 1 tab Unknown 500 mg 500 mg 01-08 Can LOPEZ tablet,juan tablet,juan Dinesh yed release yed release ALPRAZolam ALPRAZolam 2014-08 No Roth 1 tab Unknown 0.5 mg 0.5 mg 08-14 MDJan tablet tablet ginkgo ginkgo No [place] Unknown Unknown biloba 60 biloba 60 03-25 Can LOPEZ capsule mg capsule Dinesh lisinopril lisinopril 2017-08- No [place] Unknown Unknown 5 mg tablet 5 mg tablet 0- Ashley LOPEZ metoprolol metoprolol 2018- No Elsi Unknown Unknown succinate succinate 09-28 Ashley LOPEZ ER 50 mg ER 50 mg tablet,exte tablet,exte nded nded release 24 release 24 hr hr metoprolol metoprolol No Mauser Unknown Unknown tartrate 50 tartrate 50 5-30 MDJonatha mg tablet mg tablet n ashwagandha ashwagandha 2018-08 No [place] Unknown Unknown 600mg 600mg 1 Ashley LOPEZ Vital Signs Vital Name Observation Time Observation Value Comments SYSTOLIC mm[Hg] 2019-09-17 18:10:23 128 mm[Hg] mm[Hg] Method: Sit DIASTOLIC mm[Hg] 2019-09-17 18:10:23 74 mm[Hg] mm[Hg] Method: Sit PULSE 2019-09-17 18:10:23 84 /min /min RESP RATE 2019-09-17 18:10:23 16 /min /min TEMP 2019-09-17 18:10:23 98.1 [degF] Procedures This patient has no known procedures. Results This patient has no known results.
--- OUTSIDE RECORDS SUMMARY | 2019-10-06 10:55 | XMS REPORT ---
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 [place] (current) (current) [place] use of use of RN aspirin aspirin Respiratory treatments Respirator Resolve 2014-082016-09-25 Carmelita ordered y d 1-11 11:45:00 Dale [id number] Safety knowledge/s Safety Resolve 2016-02-08 Kayleigh kill d 09-15 15:04:00 Sinnigen deficit: pt 15:30: [id number] Diagnoses knowledge/s Diagnoses Active Tammee kill 09-15 [place] deficit: pt 15:30: an 00 Pain frequent Pain Mgmt Resolve 2018-10-21 Carmelita pain d 10-10 11:00:00 Dale 14:30: [id number] 00 Pain knowledge/s Pain Mgmt Resolve 2015-10-11 Carmelita kill d 10-10 14:30:00 Dale deficit: cg 14:30: [id number] 00 Cardio hypertensio Cardiovasc Resolve 2016-09-25 Carmelita n ular d 10-10 11:45:00 Dale 14:30: [id number] 00 Cardio knowledge/s Cardiovasc Resolve 2016-09-25 Carmelita kill ular d 10-10 11:45:00 Dale deficit: cg 14:30: [id number] 00 Respiratory dyspnea Respirator Resolve 2017-06-18 Carmelita present y d 10-10 11:47:00 Dale 14:30: [id number] 00 Respiratory oxygen Respirator Resolve 2017-06-18 Carmelita treatments y d 10-10 11:47:00 Dale in home 14:30: [id number] 00 Respiratory lung sounds Respirator Resolve 2016-05-01 Carmelita deficit y d 10-10 14:30:00 Dale 14:30: [id number] 00 Respiratory CPAP Respirator Resolve 2017-06-18 Carmelita treatments y d 10-10 11:47:00 Dale in home 14:30: [id number] 00 Respiratory knowledge/s Respirator Resolve 2015-10-11 Carmelita kill y d 10-10 14:30:00 Dale deficit: cg 14:30: [id number] 00 Nutrition knowledge/s Nutrition Resolve 2015-10-11 Carmelita kill d 10-10 14:30:00 Dale deficit: cg 14:30: [id number] 00 Neuro anxiety Neuro/Emot Resolve 2016-02-08 Carmelita present ion d 10-10 15:04:00 Dale 14:30: [id number] 00 Neuro depressive Neuro/Emot Resolve 2016-02-08 Carmelita feelings ion d 10-10 15:04:00 Dale present 14:30: [id number] 00 Neuro knowledge/s Neuro/Emot Resolve 2016-02-08 Carmelita kill ion d 10-10 15:04:00 Dale deficit: pt 14:30: [id number] 00 Neuro knowledge/s Neuro/Emot Resolve 2016-02-08 Carmelita kill ion d 10-10 15:04:00 Dale deficit: cg 14:30: [id number] 00 Activity knowledge/s Activity Resolve 2015-10-11 Carmelita kill d 10-10 14:30:00 Dale deficit: cg 14:30: [id number] 00 Safety safety Safety Resolve 2015-10-11 Carmelita hazards d 10-10 14:30:00 Dale present 14:30: [id number] 00 Safety fall risk Safety Resolve 2015-10-11 Carmelita factor d 10-10 14:30:00 Dale present 14:30: [id number] 00 Safety risk for Safety Resolve 2015-10-11 Carmelita hospitaliza d 10-10 14:30:00 Dale tion 14:30: [id number] 00 Diagnoses knowledge/s Diagnoses Active Carmelita kill 10-10 Dale deficit: cg 14:30: [id number] 00 Musculoskel knowledge/s Musculoske Resolve 2015-10-11 Carmelita etal kill letal d 10-10 14:30:00 Dale deficit: cg 14:30: [id number] 00 Nutrition knowledge/s Nutrition Resolve 2016-09-25 Kayleigh kill d 10-12 11:45:00 Sinnigen deficit: cg 15:30: [id number] 00 Safety safety Safety Active Kayleigh hazards - Sinnigen present 15:30: [id number] 00 Safety fall risk Safety Active Kayleigh factor - Sinnigen present 15:30: [id number] 00 Safety risk for Safety Active Kayleigh hospitaliza - Sinnigen tion 15:30: [id number] 00 Cardio edema Cardiovasc Resolve 2016-09-25 Carmelita ular d 3-18 11:45:00 Dale 15:30: [id number] 00 Pain frequent Pain Mgmt Unknown Moon pain 12-05 Danilo 16:31: [id number] 00 Pain knowledge/s Pain Mgmt Resolve 2016-02-08 Moon kill d 12-05 15:04:00 Danilo deficit: cg 16:31: [id number] 00 Cardio knowledge/s Cardiovasc Unknown Moon kill ular 12-05 Danilo deficit: cg 16:31: [id number] 00 Respiratory knowledge/s Respirator Resolve 2015-12-06 Moon kill y d 12-05 16:31:00 Danilo deficit: cg 16:31: [id number] 00 Integument skin Integument Resolve 2016-02-08 Moon integrity d 12-05 15:04:00 Danilo risk 16:31: [id number] 00 Elimination urinary Eliminatio Resolve 2016-02-08 Moon incontinenc n d 12-05 15:04:00 Danilo e 16:31: [id number] 00 Activity knowledge/s Activity Resolve 2016-02-08 Moon kill d 12-05 15:04:00 Danilo deficit: cg 16:31: [id number] 00 Respiratory knowledge/s Respirator Resolve 2016-02-08 Moon kill y d 12-20 15:04:00 Danilo deficit: cg 15:49: [id number] 00 Respiratory knowledge/s Respirator Unknown 2016-02-08 Kayleigh kill y 01-10 15:04:00 Sinnigen deficit: pt 15:30: [id number] 00 Medication injectable Meds Resolve 2016-02-08 Moon med d 02-07 15:04:00 Danilo assistance 15:04: [id number] required 00 Cardio hypertensio Cardiovasc Unknown Moon n ular 02-22 Danilo 09:45: [id number] 00 Elimination urinary Eliminatio Resolve 2016-02-23 Moon incontinenc n d 02-22 09:45:00 Danilo aggarwal 09:45: [id number] 00 Elimination ostomy Eliminatio Resolve 2016-04-17 Moon present n d 02-22 11:53:00 Danilo 09:45: [id number] 00 Elimination urinary Eliminatio Resolve 2016-04-17 Susan incontinenc n d 03-20 11:53:00 Glendo e 10:03: [id number] 00 Neuro anxiety Neuro/Emot Resolve 2016-08-21 Moon present ion d 04-05 12:10:00 Danilo 15:49: [id number] 00 Neuro depressive Neuro/Emot Resolve 2016-08-21 Moon feelings ion d 04-05 12:10:00 Danilo present 15:49: [id number] 00 Neuro knowledge/s Neuro/Emot Resolve 2016-08-21 Moon kill ion d 04-05 12:10:00 Danilo deficit: pt 15:49: [id number] 00 Neuro knowledge/s Neuro/Emot Resolve 2016-08-21 Moon kill ion d 04-05 12:10:00 Danilo deficit: cg 15:49: [id number] 00 Activity ADL Activity Resolve 2016-06-19 Moon assistance d 04-05 11:30:00 Danilo required 15:49: [id number] 00 Activity knowledge/s Activity Resolve 2016-05-01 Moon kill d 04-05 14:30:00 Danilo deficit: cg 15:49: [id number] 00 Elimination urinary Eliminatio Resolve 2016-05-01 Susan incontinenc n d 04-24 14:30:00 Glendo e 15:00: [id number] 00 Elimination urinary Eliminatio Resolve 2016-05-01 Susan frequency n d 04-24 14:30:00 Glendo 15:00: [id number] 00 Respiratory lung sounds Respirator Unknown 2015-08 Susan deficit y 0-05 Glendo 14:00: [id number] 00 Elimination urinary Eliminatio Resolve 2015-082016-05-15 Moon incontinenc n d 14:11:00 Danilo aggarwal 14:11: [id number] 00 Elimination urinary Eliminatio Resolve 2015-082016-05-29 Moon incontinenc n d 13:42:00 Danilo aggarwal 13:42: [id number] 00 Respiratory lung sounds Respirator Resolve 2015-082016-07-03 Susan deficit y d 08-05 14:12:00 Glendo 12:38: [id number] 00 Respiratory CPAP Respirator Unknown 2015-08 Moon treatments y 08-06 Carrasco in home 14:31: [id number] 00 Respiratory dyspnea Respirator Unknown 2015-08 Moon present y 08-06 Carrasco 14:31: [id number] 00 Elimination urinary Eliminatio Resolve 2015-082016-06-06 Moon incontinenc n d 08-06 14:31:00 Carrasco e 14:31: [id number] 00 Integument skin Integument Active 2015-08 Moon integrity 09-02 Carrasco risk 14:12: [id number] 00 Elimination urinary Eliminatio Resolve 2015-082016-07-03 Moon incontinenc n d 09-02 14:12:00 Danilo e 14:12: [id number] 00 Elimination urinary Eliminatio Resolve 2015-082016-08-09 Moon incontinenc n d -14 10:32:00 Danilo aggarwal 12:00: [id number] 00 Respiratory lung sounds Respirator Resolve 2015-082016-08-21 Moon deficit y d 10-01 12:10:00 Danilo 10:43: [id number] 00 Cardio edema Cardiovasc Unknown Moon ular 08-09 Danilo 10:32: [id number] 00 Respiratory dyspnea Respirator Unknown Moon present y 08-09 Danilo 10:32: [id number] 00 Activity ADL Activity Resolve 2016-08-21 Moon assistance d 08-09 12:10:00 Danilo required 10:32: [id number] 00 Musculoskel transfer Musculoske Resolve 2016-09-25 Moon etal assistance letal d 08-09 11:45:00 Danilo required 10:32: [id number] 00 Musculoskel knowledge/s Musculoske Resolve 2016-09-25 Moon etal kill letal d 08-09 11:45:00 Danilo deficit: cg 10:32: [id number] 00 Nutrition nutritional Nutrition Resolve 2016-11-20 Moon restriction d 08-21 09:45:00 Danilo kirby 12:10: [id number] 00 Neuro depressive Neuro/Emot Resolve 2019-02-10 Moon feelings ion d 09-11 09:00:00 Danilo present 13:00: [id number] 00 Neuro anxiety Neuro/Emot Resolve 2019-02-10 Moon present ion d 09-11 09:00:00 Danilo 13:00: [id number] 00 Cardio edema Cardiovasc Resolve 2017-06-18 Moon ular d 10-07 11:47:00 Danilo 13:05: [id number] 00 Respiratory dyspnea Respirator Unknown Moon present y 10-07 Danilo 13:05: [id number] 00 Activity ADL Activity Resolve 2017-06-18 Moon assistance d 10-07 11:47:00 Danilo required 13:05: [id number] 00 Musculoskel transfer Musculoske Resolve 2016-10-23 Moon etal assistance letal d 10-07 11:30:00 Danilo required 13:05: [id number] 00 Respiratory treatments Respirator Resolve 2017-10-22 Susan ordered y d 10-30 12:00:00 Glendo 11:00: [id number] 00 Nutrition knowledge/s Nutrition Resolve 2016-11-20 Susan kill d 10-30 09:45:00 Glendo deficit: cg 11:00: [id number] 00 Respiratory dyspnea Respirator Unknown Susan present y 10-31 Glendo 11:30: [id number] 00 Respiratory dyspnea Respirator Unknown Susan present y 11-13 Glendo 13:45: [id number] 00 Respiratory dyspnea Respirator Unknown Purnima present y 11-27 Burgess 10:30: [id number] 00 Respiratory CPAP Respirator Unknown Purnima treatments y 4- Burgess in home 10:30: [id number] 00 Nutrition nutritional Nutrition Resolve 2017-05-21 Purnima restriction d 12-04 13:07:00 Burgess s 10:00: [id number] 00 Respiratory dyspnea Respirator Unknown Susan present y 12-11 Glendo 12:15: [id number] 00 Test/Treatm tests Test/Injec Resolve 2017-12-31 Purnima ent ordered t/Rashard d 12-18 11:45:00 Burgess [id number] Respiratory dyspnea Respirator Unknown Susan present y 12-25 Glendo 12:20: [id number] 00 Musculoskel transfer Musculoske Unknown Purnima etal assistance letal 01-01 Burgess required 09:45: [id number] 00 Musculoskel requires Musculoske Unknown Purnima etal human letal 01-01 Burgess assist to 09:45: [id number] leave home 00 Respiratory dyspnea Respirator Unknown Susan present y 01-08 Glendo 11:50: [id number] 00 Respiratory lung sounds Respirator Unknown Susan deficit y 01-15 Glendo 13:00: [id number] 00 Respiratory dyspnea Respirator Unknown Juliana present y 01-29 Wilbert 11:15: [id number] 00 Respiratory dyspnea Respirator Unknown Susan present y 02-19 Glendo 10:38: [id number] 00 Cardio knowledge/s Cardiovasc Resolve 2017-09-30 Juliana kill ular d 03-05 11:00:00 Wilbert deficit: cg 12:13: [id number] 00 Respiratory dyspnea Respirator Unknown Susan present y 03-12 Glendo 10:51: [id number] 00 Musculoskel requires Musculoske Unknown Juliana etal human letal 03-19 Wilbert assist to 11:56: [id number] leave home 00 Respiratory dyspnea Respirator Unknown Juliana present y 03-24 Wilbert 12:05: [id number] 00 Nutrition knowledge/s Nutrition Resolve 2017-05-21 Juliana kill d 03-24 13:07:00 Wilbert deficit: cg 12:05: [id number] 00 Respiratory dyspnea Respirator Unknown Tammee present y 04-02 Amina-Hor 11:38: an 00 Musculoskel requires Musculoske Resolve 2018-12-30 Juliana etal human letal d 04-02 09:56:00 Wilbert assist to 11:38: [id number] leave home 00 Respiratory dyspnea Respirator Unknown Susan present y 9 Glendo 15:15: [id number] 00 Musculoskel transfer Musculoske Resolve 2018-12-30 Juliana etal assistance letal d 04-30 09:56:00 Wilbert required 13:23: [id number] 00 Respiratory dyspnea Respirator Unknown 2016-08 Susan present y 0- Glendo 11:59: [id number] 00 Cardio knowledge/s Cardiovasc Resolve 2016-082017-09-30 [place] [...] clinically d 0-11 11:47:00 Mal[place] 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 Respiratory dyspnea Respirator Unknown 2016-08 [place] present y 0-18 [place] 13:07: RN 00 Nutrition knowledge/s Nutrition Resolve 2016-082017-05-21 [place] kill d 0-18 13:07:00 [place] deficit: pt 13:07: RN 00 Musculoskel requires Musculoske Resolve 2016-082018-12-30 [place] etal special letal d 0-18 09:56:00 Mal[place]ke transportat 13:07: RN ion 00 Respiratory dyspnea Respirator Unknown 2016-08 Susan present y 0-25 Glendo 13:00: [id number] 00 Nutrition nutritional Nutrition Resolve 2016-082017-12-17 [place] restriction d 0-26 12:29:00 Malnoske s 14:20: RN 00 Nutrition knowledge/s Nutrition Resolve 2016-082017-12-17 [place] kill d 0-26 12:29:00 Mal[place] deficit: pt 14:20: RN 00 Elimination urinary Eliminatio Resolve 2016-082017-06-18 [place] incontinenc n d 0- 11:47:00 [place] e 14:20: RN 00 Respiratory dyspnea Respirator Unknown 2016-08 Milagros present y 08-18 Alexandro Roya 12:53: [id number] 00 Respiratory dyspnea Respirator Resolve 2016-082018-01-28 Milagros present y d 09-01 11:42:00 Alexandro Roya 11:34: [id number] 00 Cardio edema Cardiovasc Resolve 2016-082018-12-30 [place] [...] 2017-09-30 Susan incontinenc n d 1- 11:00:00 Glendo e 11:29: [id number] 00 Medication potential Meds Resolve 2018-03-25 [place] clinically d 2-21 11:00:00 Mal[place] significant 09:50: 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 Respiratory oxygen Respirator Resolve 2018-01-28 [place] treatments y d 2-27 11:42:00 Mal[place] in home 11:00: RN 00 Respiratory CPAP Respirator Resolve 2018-01-28 Susan treatments y d 3-14 11:42:00 Glendo in home 12:20: [id number] 00 Elimination urinary Eliminatio Resolve 2017-10-22 [place] incontinenc n d 3-21 12:00:00 Malnoske e 12:00: RN 00 Elimination urinary Eliminatio Resolve 2017-12-17 [place] incontinenc n d 4-18 12:29:00 Malnoske e 10:37: RN 00 Medication oral med Meds Resolve 2018-03-25 Juliana assistance d 11-28 11:00:00 Wilbert required 14:17: [id number] 00 Endo/Marquis anti-coagul Endo/Marquis Resolve 2018-12-30 [place] ation d 12-31 09:56:00 Malnoske therapy 11:45: RN 00 Nutrition nutritional Nutrition Resolve 2018-06-17 [place] restriction d 12-31 10:01:00 Malnoske s 11:45: RN 00 Elimination urinary Eliminatio Resolve 2018-01-28 [place] incontinenc n d 12-31 11:42:00 Mal[place]ke e 11:45: RN 00 Respiratory lung sounds Respirator Resolve 2019-02-10 Tiki deficit y d 01-28 09:00:00 Guidelli 11:42: [id number] 00 OT: Self self-care OT: Active Keshia Care deficit Self-Care 02-12 Jeison 13:00: [id number] 00 OT: Self knowledge/s OT: Active Keshia Care kill Self-Care 02-12 Jeison deficit: pt 13:00: [id number] 00 Respiratory oxygen Respirator Resolve 2019-02-10 Lori treatments y d 02-25 09:00:00 [place] in home 08:32: h [id number] 00 Elimination urinary Eliminatio Resolve 2019-01-13 Lori incontinenc n d 02-25 09:45:00 Yakov-Zos e 08:32: h [id number] 00 Respiratory dyspnea Respirator Resolve 2019-02-10 Juliana present y d 03-25 09:00:00 Denny 11:00: [id number] 00 Medication oral med Meds Resolve 2018-06-17 Lori assistance d 04-22 10:01:00 Yakov-Zos required 10:16: h [id number] 00 Nutrition nutritional Nutrition Resolve 2017-082019-01-13 Lori restriction d 09-15 09:45:00 [place] s 10:25: h [id number] 00 Neuro impaired Neuro/Emot Resolve 2017-082019-07-20 Lori decision-ma ion d 2-20 10:28:00 Yakov-Zos johny 10:55: h [id number] 00 Neuro behavior Neuro/Emot Resolve 2017-082019-07-20 Lori problems ion d 2-20 10:28:00 [place] 10:55: h [id number] 00 Endo/Marquis glucose Endo/Marquis Resolve 2018-12-30 Laura testing d 2- 09:56:00 Violette, dependence 14:40: [id number] 00 Medication oral med Meds Resolve 2018-09-24 Laura assistance d 2- 14:40:00 Violette, required 14:40: [id number] 00 Endo/Marquis anti-coagul Endo/Marquis Resolve 2019-02-10 Juliana [...] Juliana etal special letal d 8-07 10:30:00 oRbles transportat 10:35: ion 00 Medication potential Meds [...] 0-30 10:30:00 Stacey e 11:00: [employer] 00 [id number] Respiratory CPAP Respirator Resolve 2018-082019-07-20 [place] treatments [...] 2-26 10:22:00 Stacey e 09:00: [employer] 00 [id number] Musculoskel requires Musculoske Active [place] etal human [...] mg-bioflv-r ose ose tablet,ext. tablet,ext. release release [place] 3 [place] 3 2014-08 No Roth 2400mg Unknown Fish [...] LOPEZ gel gel cyclobenzap cyclobenzap 2014-08 No Clare 1 tab Unknown rine 10 mg rine 10 mg 08-14 ,Can tablet tablet Dinesh Voltaren 1 Voltaren 1 2018- No Clare 4 grams Unknown % topical % topical 12-12 Can LOPEZ gel Dinesh MSM 1,000 MSM 1,000 No Clare 1 tab Unknown mg tablet mg tablet 10-23 Can LOPEZ milk milk 2016- No [place] 2 caps Unknown thistle 175 thistle 175 10-23 Can LOPEZ mg tablet mg tablet Dinesh milk milk No Clare 1 Unknown thistle 350 thistle 350 10-30 Can LOPEZ capusle mg capsule mg capsule Dinesh (350 mg traMADol 50 traMADol 50 2016- No Roth 50-75mg Unknown mg tablet mg tablet 10-30 Jan LOPEZ aspirin 81 aspirin 81 No Clare 1 Unknown mg chewable mg chewable 11-29 Can LOPEZ tablet tablet tablet Dinesh (81 Mg) acetaminoph acetaminoph No Clare 2 Unknown en 500 mg en 500 mg 12-18 Can LOPEZ tablets tablet tablet Dinesh (1000mg ) busPIRone busPIRone 2016- No Clare 1 Unknown 10 mg 10 mg 01-01 Can LOPEZ tablet tablet Dinesh naproxen naproxen 2016- No Clare 1 tab Unknown 500 mg 500 mg 01-08 Can LOPEZ tablet,juan tablet,juan Dinesh yed release yed release busPIRone busPIRone No [place] 1 Unknown 10 mg 10 mg 5 Can LOPEZ tablet tablet Dinesh traMADol 50 traMADol 50 2018- No Clare 50-75mg Unknown mg tablet mg tablet 10-30 Can LOPEZ Vitamin D3 Vitamin D3 2016-08 No Clare 1,000 Unknown 1,000 unit 1,000 unit 0 Can LOPEZ Unit capsule capsule Dinesh levoFLOXaci levoFLOXaci 2017- No Clare 500mg Unknown n 500 mg n 500 mg 09-01 Can LOPEZ tablet tablet Dinesh naproxen naproxen No Clare 1 tab Unknown 500 mg 500 mg 01-08 Can LOPEZ tablet,juan tablet,juan Dinesh yed release yed release ALPRAZolam ALPRAZolam 2014-08 No Roth 1 tab Unknown 0.5 mg 0.5 mg 08-14 MDJan tablet tablet ginkgo ginkgo No Clare Unknown Unknown biloba 60 biloba 60 03-25 [...] 2018-08 No [place] Unknown Unknown 600mg 600mg 1- Ashley LOPEZ Vital Signs Vital Name Observation Time Observation Value Comments SYSTOLIC mm[Hg] 2019-09-27 18:10:33 138 mm[Hg] mm[Hg] Method: Sit DIASTOLIC mm[Hg] 2019-09-27 18:10:33 78 mm[Hg] mm[Hg] Method: Sit PULSE 2019-09-27 18:10:33 64 /min /min RESP RATE 2019-09-27 18:10:33 18 /min /min TEMP 2019-09-27 18:10:33 97.8 [degF] Procedures This patient has no known procedures. Results This patient has no known results.
--- OUTSIDE RECORDS SUMMARY | 2019-10-06 10:55 | XMS REPORT ---
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 RN Prsnl hx of Prsnl hx of Diagnosis Active [place] TIA (TIA), TIA (TIA), [place] and cereb and cereb RN infrc w/o infrc w/o resid resid deficits deficits Patient's Patient's Diagnosis Active [place] other other [place] noncomplian noncomplian RN ce with ce with medication 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 regimen 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 [place] (current) (current) [place] use of use of RN aspirin aspirin Respiratory treatments Respirator Resolve 2014-082016-09-25 Carmelita ordered y d 1-11 11:45:00 Dale [id number] Safety knowledge/s Safety Resolve 2016-02-08 Kayleigh kill d 09-15 15:04:00 Sinnigen deficit: pt 15:30: [id number] 00 Diagnoses knowledge/s Diagnoses Active Tammee kill 09-15 [place] deficit: pt 15:30: an 00 Pain frequent Pain Mgmt Resolve 2018-10-21 Carmelita pain d 10-10 11:00:00 Dale 14:30: [id number] 00 Pain knowledge/s Pain Mgmt Resolve 2015-10-11 Carmelita kill d 10-10 14:30:00 Dale deficit: cg 14:30: [id number] 00 Cardio hypertensio Cardiovasc Resolve 2016-09-25 Carmelita n ular d 10-10 11:45:00 Dale 14:30: [id number] 00 Cardio knowledge/s Cardiovasc Resolve 2016-09-25 Carmelita kill ular d 10-10 11:45:00 Dale deficit: cg 14:30: [id number] 00 Respiratory dyspnea Respirator Resolve 2017-06-18 Carmelita present y d 10-10 11:47:00 Dale 14:30: [id number] 00 Respiratory oxygen Respirator Resolve 2017-06-18 Carmelita treatments y d 10-10 11:47:00 Dale in home 14:30: [id number] 00 Respiratory lung sounds Respirator Resolve 2016-05-01 Carmelita deficit y d 10-10 14:30:00 Dale 14:30: [id number] 00 Respiratory CPAP Respirator Resolve 2017-06-18 Carmelita treatments y d 10-10 11:47:00 Dale in home 14:30: [id number] 00 Respiratory knowledge/s Respirator Resolve 2015-10-11 Carmelita kill y d 10-10 14:30:00 Dale deficit: cg 14:30: [id number] 00 Nutrition knowledge/s Nutrition Resolve 2015-10-11 Carmelita kill d 10-10 14:30:00 Dale deficit: cg 14:30: [id number] 00 Neuro anxiety Neuro/Emot Resolve 2016-02-08 Carmelita present ion d 10-10 15:04:00 Dale 14:30: [id number] 00 Neuro depressive Neuro/Emot Resolve 2016-02-08 Carmelita feelings ion d 10-10 15:04:00 Dale present 14:30: [id number] 00 Neuro knowledge/s Neuro/Emot Resolve 2016-02-08 Carmelita kill ion d 10-10 15:04:00 Dale deficit: pt 14:30: [id number] 00 Neuro knowledge/s Neuro/Emot Resolve 2016-02-08 Carmelita kill ion d 10-10 15:04:00 Dale deficit: cg 14:30: [id number] 00 Activity knowledge/s Activity Resolve 2015-10-11 Carmelita kill d 10-10 14:30:00 Dale deficit: cg 14:30: [id number] 00 Safety safety Safety Resolve 2015-10-11 Carmelita hazards d 10-10 14:30:00 Dale present 14:30: [id number] 00 Safety fall risk Safety Resolve 2015-10-11 Carmelita factor d 10-10 14:30:00 Dale present 14:30: [id number] 00 Safety risk for Safety Resolve 2015-10-11 Carmelita hospitaliza d 10-10 14:30:00 Dale tion 14:30: [id number] 00 Diagnoses knowledge/s Diagnoses Active Carmelita kill 10-10 Dale deficit: cg 14:30: [id number] 00 Musculoskel knowledge/s Musculoske Resolve 2015-10-11 Carmelita etal kill letal d 10-10 14:30:00 Dale deficit: cg 14:30: [id number] 00 Nutrition knowledge/s Nutrition Resolve 2016-09-25 Kayleigh kill d 10-12 11:45:00 [place] deficit: cg 15:30: [id number] 00 Safety safety Safety Active Kayleigh hazards - Sinnigen present 15:30: [id number] 00 Safety fall risk Safety Active Kayleigh factor - S[place] present 15:30: [id number] 00 Safety risk for Safety Active Kayleigh hospitaliza - Sinnigen tion 15:30: [id number] 00 Cardio edema Cardiovasc Resolve 2016-09-25 Carmelita ular d 3-18 11:45:00 Dale 15:30: [id number] 00 Pain frequent Pain Mgmt Unknown Moon pain 12-05 Danilo 16:31: [id number] 00 Pain knowledge/s Pain Mgmt Resolve 2016-02-08 Moon kill d 12-05 15:04:00 Danilo deficit: cg 16:31: [id number] 00 Cardio knowledge/s Cardiovasc Unknown Moon kill ular 12-05 Danilo deficit: cg 16:31: [id number] 00 Respiratory knowledge/s Respirator Resolve 2015-12-06 Moon kill y d 12-05 16:31:00 Danilo deficit: cg 16:31: [id number] 00 Integument skin Integument Resolve 2016-02-08 Moon integrity d 12-05 15:04:00 Danilo risk 16:31: [id number] 00 Elimination urinary Eliminatio Resolve 2016-02-08 Moon incontinenc n d 12-05 15:04:00 Danilo e 16:31: [id number] 00 Activity knowledge/s Activity Resolve 2016-02-08 Moon kill d 12-05 15:04:00 Danilo deficit: cg 16:31: [id number] 00 Respiratory knowledge/s Respirator Resolve 2016-02-08 Moon kill y d 12-20 15:04:00 Danilo deficit: cg 15:49: [id number] 00 Respiratory knowledge/s Respirator Unknown 2016-02-08 Kayleigh kill y 01-10 15:04:00 [place] deficit: pt 15:30: [id number] 00 Medication injectable Meds Resolve 2016-02-08 Moon med d 02-07 15:04:00 Danilo assistance 15:04: [id number] required 00 Cardio hypertensio Cardiovasc Unknown Moon n ular 02-22 Danilo 09:45: [id number] 00 Elimination urinary Eliminatio Resolve 2016-02-23 Moon incontinenc n d 02-22 09:45:00 Danilo aggarwal 09:45: [id number] 00 Elimination ostomy Eliminatio Resolve 2016-04-17 Moon present n d 02-22 11:53:00 Danilo 09:45: [id number] 00 Elimination urinary Eliminatio Resolve 2016-04-17 Susan incontinenc n d 03-20 11:53:00 [place] e 10:03: [id number] 00 Neuro anxiety Neuro/Emot Resolve 2016-08-21 Moon present ion d 04-05 12:10:00 Danilo 15:49: [id number] 00 Neuro depressive Neuro/Emot Resolve 2016-08-21 Moon feelings ion d 04-05 12:10:00 Danilo present 15:49: [id number] 00 Neuro knowledge/s Neuro/Emot Resolve 2016-08-21 Moon kill ion d 04-05 12:10:00 Danilo deficit: pt 15:49: [id number] 00 Neuro knowledge/s Neuro/Emot Resolve 2016-08-21 Moon kill ion d 04-05 12:10:00 Danilo deficit: cg 15:49: [id number] 00 Activity ADL Activity Resolve 2016-06-19 Moon assistance d 04-05 11:30:00 Danilo required 15:49: [id number] 00 Activity knowledge/s Activity Resolve 2016-05-01 Moon kill d 04-05 14:30:00 Danilo deficit: cg 15:49: [id number] 00 Elimination urinary Eliminatio Resolve 2016-05-01 Susan incontinenc n d 04-24 14:30:00 [place] e 15:00: [id number] 00 Elimination urinary Eliminatio Resolve 2016-05-01 Susan frequency n d 04-24 14:30:00 [place] 15:00: [id number] 00 Respiratory lung sounds Respirator Unknown 2015-08 Susan deficit y 0-05 [place] 14:00: [id number] 00 Elimination urinary Eliminatio Resolve 2015-082016-05-15 Moon incontinenc n d 14:11:00 Danilo aggarwal 14:11: [id number] 00 Elimination urinary Eliminatio Resolve 2015-082016-05-29 Moon incontinenc n d 13:42:00 Danilo aggarwal 13:42: [id number] 00 Respiratory lung sounds Respirator Resolve 2015-082016-07-03 Susan deficit y d 08-05 14:12:00 [place] 12:38: [id number] 00 Respiratory CPAP Respirator Unknown 2015-08 Moon treatments y 08-06 [place] in home 14:31: [id number] 00 Respiratory dyspnea Respirator Unknown 2015-08 Moon present y 08-06 [place] 14:31: [id number] 00 Elimination urinary Eliminatio Resolve 2015-082016-06-06 Moon incontinenc n d 08-06 14:31:00 [place] e 14:31: [id number] 00 Integument skin Integument Active 2015-08 Moon integrity 09-02 [place] risk 14:12: [id number] 00 Elimination urinary Eliminatio Resolve 2015-082016-07-03 Moon incontinenc n d 09-02 14:12:00 Danilo e 14:12: [id number] 00 Elimination urinary Eliminatio Resolve 2015-082016-08-09 Moon incontinenc n d -14 10:32:00 Danilo aggarwal 12:00: [id number] 00 Respiratory lung sounds Respirator Resolve 2015-082016-08-21 Moon deficit y d 10-01 12:10:00 Danilo 10:43: [id number] 00 Cardio edema Cardiovasc Unknown Moon ular 08-09 Danilo 10:32: [id number] 00 Respiratory dyspnea Respirator Unknown Moon present y 08-09 Danilo 10:32: [id number] 00 Activity ADL Activity Resolve 2016-08-21 Moon assistance d 08-09 12:10:00 Danilo required 10:32: [id number] 00 Musculoskel transfer Musculoske Resolve 2016-09-25 Moon etal assistance letal d 08-09 11:45:00 Danilo required 10:32: [id number] 00 Musculoskel knowledge/s Musculoske Resolve 2016-09-25 Moon etal kill letal d 08-09 11:45:00 Danilo deficit: cg 10:32: [id number] 00 Nutrition nutritional Nutrition Resolve 2016-11-20 Moon restriction d 08-21 09:45:00 Danilo kirby 12:10: [id number] 00 Neuro depressive Neuro/Emot Resolve 2019-02-10 Moon feelings ion d 09-11 09:00:00 Danilo present 13:00: [id number] 00 Neuro anxiety Neuro/Emot Resolve 2019-02-10 Moon present ion d 09-11 09:00:00 Danilo 13:00: [id number] 00 Cardio edema Cardiovasc Resolve 2017-06-18 Moon ular d 10-07 11:47:00 Danilo 13:05: [id number] 00 Respiratory dyspnea Respirator Unknown Moon present y 10-07 Dnailo 13:05: [id number] 00 Activity ADL Activity Resolve 2017-06-18 Moon assistance d 10-07 11:47:00 Danilo required 13:05: [id number] 00 Musculoskel transfer Musculoske Resolve 2016-10-23 Moon etal assistance letal d 10-07 11:30:00 Danilo required 13:05: [id number] 00 Respiratory treatments Respirator Resolve 2017-10-22 Susan ordered y d 10-30 12:00:00 [place] 11:00: [id number] 00 Nutrition knowledge/s Nutrition Resolve 2016-11-20 Susan kill d 10-30 09:45:00 [place] deficit: cg 11:00: [id number] 00 Respiratory dyspnea Respirator Unknown Susan present y 10-31 [place] 11:30: [id number] 00 Respiratory dyspnea Respirator Unknown Susan present y 11-13 [place] 13:45: [id number] 00 Respiratory dyspnea Respirator Unknown Purnima present y 11-27 [place] 10:30: [id number] 00 Respiratory CPAP Respirator Unknown Purnima treatments y 4- [place] in home 10:30: [id number] 00 Nutrition nutritional Nutrition Resolve 2017-05-21 Purnima restriction d 12-04 13:07:00 [place] s 10:00: [id number] 00 Respiratory dyspnea Respirator Unknown Susan present y 12-11 [place] 12:15: [id number] 00 Test/Treatm tests Test/Injec Resolve 2017-12-31 Purnima ent ordered t/Rashard d 12-18 11:45:00 [place] [id number] Respiratory dyspnea Respirator Unknown Susan present y 12-25 [place] 12:20: [id number] 00 Musculoskel transfer Musculoske Unknown Purnima etal assistance letal 01-01 [place] required 09:45: [id number] 00 Musculoskel requires Musculoske Unknown Purnima etal human letal 01-01 [place] assist to 09:45: [id number] leave home 00 Respiratory dyspnea Respirator Unknown Susan present y 01-08 [place] 11:50: [id number] 00 Respiratory lung sounds Respirator Unknown Susan deficit y 01-15 [place] 13:00: [id number] 00 Respiratory dyspnea Respirator Unknown Juliana present y 01-29 Wilbert 11:15: [id number] 00 Respiratory dyspnea Respirator Unknown Susan present y 02-19 [place] 10:38: [id number] 00 Cardio knowledge/s Cardiovasc Resolve 2017-09-30 Juliana kill ular d 03-05 11:00:00 Wilbert deficit: cg 12:13: [id number] 00 Respiratory dyspnea Respirator Unknown Susan present y 03-12 [place] 10:51: [id number] 00 Musculoskel requires Musculoske Unknown Juliana etal human letal 03-19 Wilbert assist to 11:56: [id number] leave home 00 Respiratory dyspnea Respirator Unknown Juliana present y 03-24 Wilbert 12:05: [id number] 00 Nutrition knowledge/s Nutrition Resolve 2017-05-21 Juliana kill d 03-24 13:07:00 Wilbert deficit: cg 12:05: [id number] 00 Respiratory dyspnea Respirator Unknown Tammee present y 04-02 Amina-Hor 11:38: an 00 Musculoskel requires Musculoske Resolve 2018-12-30 Juliana etal human letal d 04-02 09:56:00 Wilbert assist to 11:38: [id number] leave home 00 Respiratory dyspnea Respirator Unknown Susan present y 9 [place] 15:15: [id number] 00 Musculoskel transfer Musculoske Resolve 2018-12-30 Juliana etal assistance letal d 04-30 09:56:00 Wilbert required 13:23: [id number] 00 Respiratory dyspnea Respirator Unknown 2016-08 Susan present y 0- [place] 11:59: [id number] 00 Cardio knowledge/s Cardiovasc Resolve 2016-082017-09-30 [place] [...] clinically d 0-11 11:47:00 Malnoske significant 11:35: cake former 00 issue Respiratory dyspnea Respirator Unknown 2016-08 [place] present y 0-18 [place] 13:07: RN 00 Nutrition knowledge/s Nutrition Resolve 2016-082017-05-21 [place] kill d 0-18 13:07:00 [place] deficit: pt 13:07: RN 00 Musculoskel requires Musculoske Resolve 2016-082018-12-30 [place] etal special letal d 0-18 09:56:00 Mal[place] transportat 13:07: RN ion 00 Respiratory dyspnea Respirator Unknown 2016-08 Susan present y 0-25 [place] 13:00: [id number] 00 Nutrition nutritional Nutrition Resolve 2016-082017-12-17 [place] restriction d 0-26 12:29:00 Malnos[place] s 14:20: RN 00 Nutrition knowledge/s Nutrition Resolve 2016-082017-12-17 [place] kill d 0-26 12:29:00 [place] deficit: pt 14:20: RN 00 Elimination urinary Eliminatio Resolve 2016-082017-06-18 [place] incontinenc n d 0- 11:47:00 [place]noske e 14:20: RN 00 Respiratory dyspnea Respirator Unknown 2016-08 Milagros present y 08-18 Alexandro Orya 12:53: [id number] 00 Respiratory dyspnea Respirator Resolve 2016-082018-01-28 Milagros present y d 09-01 11:42:00 Alexandro Roya 11:34: [id number] 00 Cardio edema Cardiovasc Resolve 2016-082018-12-30 [place] [...] 2017-09-30 Susan incontinenc n d 1- 11:00:00 [place] e 11:29: [id number] 00 Medication potential Meds Resolve 2018-03-25 [place] clinically d 2-21 11:00:00 Malnoske significant 09:50: cake former 00 issue Respiratory oxygen Respirator Resolve 2018-01-28 [place] treatments y d 2-27 11:42:00 Malnos[place] in home 11:00: RN 00 Respiratory CPAP Respirator Resolve 2018-01-28 Susan treatments y d 3-14 11:42:00 [place] in home 12:20: [id number] 00 Elimination urinary Eliminatio Resolve 2017-10-22 [place] incontinenc n d 3-21 12:00:00 [place] e 12:00: RN 00 Elimination urinary Eliminatio Resolve 2017-12-17 [place] incontinenc n d 4-18 12:29:00 [place] e 10:37: RN 00 Medication oral med Meds Resolve 2018-03-25 Juliana assistance d 11-28 11:00:00 Wilbert required 14:17: [id number] 00 Endo/Marquis anti-coagul Endo/Marquis Resolve 2018-12-30 [place] ation d 12-31 09:56:00 [place] therapy 11:45: RN 00 Nutrition nutritional Nutrition Resolve 2018-06-17 [place] restriction d 12-31 10:01:00 [place] s 11:45: RN 00 Elimination urinary Eliminatio Resolve 2018-01-28 [place] incontinenc n d 12-31 11:42:00 [place] e 11:45: RN 00 Respiratory lung sounds Respirator Resolve 2019-02-10 Tiki deficit y d 01-28 09:00:00 Guid[place] 11:42: [id number] 00 OT: Self self-care OT: Active Keshia Care deficit Self-Care 02-12 Jeison 13:00: [id number] 00 OT: Self knowledge/s OT: Active Keshia Care kill Self-Care 02-12 Jeison deficit: pt 13:00: [id number] 00 Respiratory oxygen Respirator Resolve 2019-02-10 Lori treatments y d 02-25 09:00:00 [place] in home 08:32: h [id number] 00 Elimination urinary Eliminatio Resolve 2019-01-13 Lori incontinenc n d 02-25 09:45:00 Yakov-Zos e 08:32: h [id number] 00 Respiratory dyspnea Respirator Resolve 2019-02-10 Juliana present y d 03-25 09:00:00 Denny 11:00: [id number] 00 Medication oral med Meds Resolve 2018-06-17 Lori assistance d 04-22 10:01:00 Yakov-Zos required 10:16: h [id number] 00 Nutrition nutritional Nutrition Resolve 2017-082019-01-13 Lori restriction d 09-15 09:45:00 [place]-Zos s 10:25: h [id number] 00 Neuro impaired Neuro/Emot Resolve 2017-082019-07-20 Lori decision-ma ion d 2-20 10:28:00 Yakov-Zos johny 10:55: h [id number] 00 Neuro behavior Neuro/Emot Resolve 2017-082019-07-20 Lori problems ion d 2-20 10:28:00 [place]os 10:55: h [id number] 00 Endo/Marquis glucose Endo/Marquis Resolve 2018-12-30 Laura testing d 2- 09:56:00 Violet[place], dependence 14:40: [id number] 00 Medication oral med Meds Resolve 2018-09-24 Laura assistance d 2- 14:40:00 [place], required 14:40: [id number] 00 Endo/Marquis anti-coagul Endo/Marquis Resolve 2019-02-10 Juliana [...] 0-30 10:30:00 Stacey e 11:00: [employer] 00 [id number] Respiratory CPAP Respirator Resolve 2018-082019-07-20 [place] treatments [...] 2-26 10:22:00 Stacey e 09:00: [employer] 00 [id number] Musculoskel requires Musculoske Active [place] etal human [...] mg-bioflv-r ose ose tablet,ext. tablet,ext. release release [place] 3 [place] 3 2014-08 No Roth 2400mg Unknown Fish [...] Unknown 1,000 mg 1,000 mg 08-14 Jan LOEPZ tablet tablet Oxygen Oxygen 2014-08 No [place] 2 L Unknown 08-14 Jan LOPEZ oxygen oxygen 2014-08 No [place] 2 Unknown 08-14 Jan LOPEZ liters Voltaren 1 Voltaren 1 2015- No [place] 4 grams Unknown % topical % topical 12-12 Jan LOPEZ gel gel cyclobenzap cyclobenzap 2014-08 No [place] 1 tab Unknown rine 10 mg rine 10 mg 08-14 ,Can tablet tablet Dinesh Voltaren 1 Voltaren 1 2018- No [place] 4 grams Unknown % topical % topical 12-12 Can LOPEZ gel Dinesh MSM 1,000 MSM 1,000 No [place] 1 tab Unknown mg tablet mg tablet 10-23 Can LOPEZ milk milk 2016- No [place] 2 caps Unknown thistle 175 thistle 175 10-23 Can LOPEZ mg tablet mg tablet Dinesh milk milk No [place] 1 Unknown thistle 350 thistle 350 10-30 Can LOPEZ capusle mg capsule mg capsule Dinesh (350 mg traMADol 50 traMADol 50 2016- No [place] 50-75mg Unknown mg tablet mg tablet 10-30 Jan LOPEZ aspirin 81 aspirin 81 No [place] 1 Unknown mg chewable mg chewable 11-29 Can LOPEZ tablet tablet tablet Dinesh (81 Mg) acetaminoph acetaminoph No [place] 2 Unknown en 500 mg en 500 mg 12-18 Can LOPEZ tablets tablet tablet Dinesh (1000mg ) busPIRone busPIRone 2016- No [place] 1 Unknown 10 mg 10 mg 01-01 Can LOPEZ tablet tablet Dinesh naproxen naproxen 2016- No [place] 1 tab Unknown 500 mg 500 mg 01-08 Can LOPEZ tablet,juan tablet,juan Dinesh yed release yed release busPIRone busPIRone No [place] 1 Unknown 10 mg 10 mg 5 Can LOPEZ tablet tablet Dinesh traMADol 50 traMADol 50 2018- No [place] 50-75mg Unknown mg tablet mg tablet 10-30 Can LOPEZ Vitamin D3 Vitamin D3 2016-08 No [place] 1,000 Unknown 1,000 unit 1,000 unit 0 Can LOPEZ Unit capsule capsule Dinesh levoFLOXaci levoFLOXaci 2017- No [place] 500mg Unknown n 500 mg n 500 mg 09-01 Can LOPEZ tablet tablet Dinesh naproxen naproxen No [place] 1 tab Unknown 500 mg 500 mg 01-08 Can LOPEZ tablet,juan tablet,juan Dinesh yed release yed release ALPRAZolam ALPRAZolam 2014-08 No [place] 1 tab Unknown 0.5 mg 0.5 mg 08-14 MDJan tablet tablet ginkgo ginkgo No [place] Unknown Unknown biloba 60 biloba 60 03-25 [...]
--- OUTSIDE RECORDS SUMMARY | 2019-10-06 10:55 | XMS REPORT ---
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 [place] (current) (current) [place] use of use of RN aspirin aspirin Respiratory treatments Respirator Resolve 2014-082016-09-25 Carmelita ordered y d 1-11 11:45:00 Dale [id number] Safety knowledge/s Safety Resolve 2016-02-08 Kayleigh kill d 09-15 15:04:00 Sinnigen deficit: pt 15:30: [id number] Diagnoses knowledge/s Diagnoses Active Tammee kill 09-15 [place] deficit: pt 15:30: an 00 Pain frequent Pain Mgmt Resolve 2018-10-21 Carmelita pain d 10-10 11:00:00 Dale 14:30: [id number] 00 Pain knowledge/s Pain Mgmt Resolve 2015-10-11 Carmelita kill d 10-10 14:30:00 Dale deficit: cg 14:30: [id number] 00 Cardio hypertensio Cardiovasc Resolve 2016-09-25 Carmelita n ular d 10-10 11:45:00 Dale 14:30: [id number] 00 Cardio knowledge/s Cardiovasc Resolve 2016-09-25 Carmelita kill ular d 10-10 11:45:00 Dale deficit: cg 14:30: [id number] 00 Respiratory dyspnea Respirator Resolve 2017-06-18 Carmelita present y d 10-10 11:47:00 Dale 14:30: [id number] 00 Respiratory oxygen Respirator Resolve 2017-06-18 Carmelita treatments y d 10-10 11:47:00 Dale in home 14:30: [id number] 00 Respiratory lung sounds Respirator Resolve 2016-05-01 Carmelita deficit y d 10-10 14:30:00 Dale 14:30: [id number] 00 Respiratory CPAP Respirator Resolve 2017-06-18 Carmelita treatments y d 10-10 11:47:00 Dale in home 14:30: [id number] 00 Respiratory knowledge/s Respirator Resolve 2015-10-11 Carmelita kill y d 10-10 14:30:00 Dale deficit: cg 14:30: [id number] 00 Nutrition knowledge/s Nutrition Resolve 2015-10-11 Carmelita kill d 10-10 14:30:00 Dale deficit: cg 14:30: [id number] 00 Neuro anxiety Neuro/Emot Resolve 2016-02-08 Carmelita present ion d 10-10 15:04:00 Dale 14:30: [id number] 00 Neuro depressive Neuro/Emot Resolve 2016-02-08 Carmelita feelings ion d 10-10 15:04:00 Dale present 14:30: [id number] 00 Neuro knowledge/s Neuro/Emot Resolve 2016-02-08 Carmelita kill ion d 10-10 15:04:00 Dale deficit: pt 14:30: [id number] 00 Neuro knowledge/s Neuro/Emot Resolve 2016-02-08 Carmelita kill ion d 10-10 15:04:00 Dale deficit: cg 14:30: [id number] 00 Activity knowledge/s Activity Resolve 2015-10-11 Carmelita kill d 10-10 14:30:00 Dale deficit: cg 14:30: [id number] 00 Safety safety Safety Resolve 2015-10-11 Carmelita hazards d 10-10 14:30:00 Dale present 14:30: [id number] 00 Safety fall risk Safety Resolve 2015-10-11 Carmelita factor d 10-10 14:30:00 Dale present 14:30: [id number] 00 Safety risk for Safety Resolve 2015-10-11 Carmelita hospitaliza d 10-10 14:30:00 Dale tion 14:30: [id number] 00 Diagnoses knowledge/s Diagnoses Active Carmelita kill 10-10 Dale deficit: cg 14:30: [id number] 00 Musculoskel knowledge/s Musculoske Resolve 2015-10-11 Carmelita etal kill letal d 10-10 14:30:00 Dale deficit: cg 14:30: [id number] 00 Nutrition knowledge/s Nutrition Resolve 2016-09-25 Kayleigh kill d 10-12 11:45:00 Sinnigen deficit: cg 15:30: [id number] 00 Safety safety Safety Active Kayleigh hazards - Sinnigen present 15:30: [id number] 00 Safety fall risk Safety Active Kayleigh factor - Sinnigen present 15:30: [id number] 00 Safety risk for Safety Active Kayleigh hospitaliza - Sinnigen tion 15:30: [id number] 00 Cardio edema Cardiovasc Resolve 2016-09-25 Carmelita ular d 3-18 11:45:00 Dale 15:30: [id number] 00 Pain frequent Pain Mgmt Unknown Moon pain 12-05 Danilo 16:31: [id number] 00 Pain knowledge/s Pain Mgmt Resolve 2016-02-08 Moon kill d 12-05 15:04:00 Danilo deficit: cg 16:31: [id number] 00 Cardio knowledge/s Cardiovasc Unknown Moon kill ular 12-05 Danilo deficit: cg 16:31: [id number] 00 Respiratory knowledge/s Respirator Resolve 2015-12-06 Moon kill y d 12-05 16:31:00 Danilo deficit: cg 16:31: [id number] 00 Integument skin Integument Resolve 2016-02-08 Moon integrity d 12-05 15:04:00 Danilo risk 16:31: [id number] 00 Elimination urinary Eliminatio Resolve 2016-02-08 Moon incontinenc n d 12-05 15:04:00 Danilo e 16:31: [id number] 00 Activity knowledge/s Activity Resolve 2016-02-08 Moon kill d 12-05 15:04:00 Danilo deficit: cg 16:31: [id number] 00 Respiratory knowledge/s Respirator Resolve 2016-02-08 Moon kill y d 12-20 15:04:00 Danilo deficit: cg 15:49: [id number] 00 Respiratory knowledge/s Respirator Unknown 2016-02-08 Kayleigh kill y 01-10 15:04:00 Sinnigen deficit: pt 15:30: [id number] 00 Medication injectable Meds Resolve 2016-02-08 Moon med d 02-07 15:04:00 Danilo assistance 15:04: [id number] required 00 Cardio hypertensio Cardiovasc Unknown Moon n ular 02-22 Danilo 09:45: [id number] 00 Elimination urinary Eliminatio Resolve 2016-02-23 Moon incontinenc n d 02-22 09:45:00 Danilo aggarwal 09:45: [id number] 00 Elimination ostomy Eliminatio Resolve 2016-04-17 Moon present n d 02-22 11:53:00 Danilo 09:45: [id number] 00 Elimination urinary Eliminatio Resolve 2016-04-17 Susan incontinenc n d 03-20 11:53:00 Sibley e 10:03: [id number] 00 Neuro anxiety Neuro/Emot Resolve 2016-08-21 Moon present ion d 04-05 12:10:00 Danilo 15:49: [id number] 00 Neuro depressive Neuro/Emot Resolve 2016-08-21 Moon feelings ion d 04-05 12:10:00 Danilo present 15:49: [id number] 00 Neuro knowledge/s Neuro/Emot Resolve 2016-08-21 Moon kill ion d 04-05 12:10:00 Danilo deficit: pt 15:49: [id number] 00 Neuro knowledge/s Neuro/Emot Resolve 2016-08-21 Moon kill ion d 04-05 12:10:00 Danilo deficit: cg 15:49: [id number] 00 Activity ADL Activity Resolve 2016-06-19 Moon assistance d 04-05 11:30:00 Danilo required 15:49: [id number] 00 Activity knowledge/s Activity Resolve 2016-05-01 Moon kill d 04-05 14:30:00 Danilo deficit: cg 15:49: [id number] 00 Elimination urinary Eliminatio Resolve 2016-05-01 Susan incontinenc n d 04-24 14:30:00 Sibley e 15:00: [id number] 00 Elimination urinary Eliminatio Resolve 2016-05-01 Susan frequency n d 04-24 14:30:00 Sibley 15:00: [id number] 00 Respiratory lung sounds Respirator Unknown 2015-08 Susan deficit y 0-05 Sibley 14:00: [id number] 00 Elimination urinary Eliminatio Resolve 2015-082016-05-15 Moon incontinenc n d 14:11:00 Danilo aggarwal 14:11: [id number] 00 Elimination urinary Eliminatio Resolve 2015-082016-05-29 Moon incontinenc n d 13:42:00 Danilo aggarwal 13:42: [id number] 00 Respiratory lung sounds Respirator Resolve 2015-082016-07-03 Susan deficit y d 08-05 14:12:00 S[place]y 12:38: [id number] 00 Respiratory CPAP Respirator Unknown 2015-08 Moon treatments y 08-06 Carrasco in home 14:31: [id number] 00 Respiratory dyspnea Respirator Unknown 2015-08 Moon present y 08-06 [place]co 14:31: [id number] 00 Elimination urinary Eliminatio Resolve 2015-082016-06-06 Moon incontinenc n d 08-06 14:31:00 Carrasco e 14:31: [id number] 00 Integument skin Integument Active 2015-08 Moon integrity 09-02 Carrasco risk 14:12: [id number] 00 Elimination urinary Eliminatio Resolve 2015-082016-07-03 Moon incontinenc n d 09-02 14:12:00 Danilo e 14:12: [id number] 00 Elimination urinary Eliminatio Resolve 2015-082016-08-09 Moon incontinenc n d -14 10:32:00 Danilo aggarwal 12:00: [id number] 00 Respiratory lung sounds Respirator Resolve 2015-082016-08-21 Moon deficit y d 10-01 12:10:00 Danilo 10:43: [id number] 00 Cardio edema Cardiovasc Unknown Moon ular 08-09 Danilo 10:32: [id number] 00 Respiratory dyspnea Respirator Unknown Moon present y 08-09 Danilo 10:32: [id number] 00 Activity ADL Activity Resolve 2016-08-21 Moon assistance d 08-09 12:10:00 Danilo required 10:32: [id number] 00 Musculoskel transfer Musculoske Resolve 2016-09-25 Moon etal assistance letal d 08-09 11:45:00 Danilo required 10:32: [id number] 00 Musculoskel knowledge/s Musculoske Resolve 2016-09-25 Moon etal kill letal d 08-09 11:45:00 Danilo deficit: cg 10:32: [id number] 00 Nutrition nutritional Nutrition Resolve 2016-11-20 Moon restriction d 08-21 09:45:00 Danilo kirby 12:10: [id number] 00 Neuro depressive Neuro/Emot Resolve 2019-02-10 Moon feelings ion d 09-11 09:00:00 Danilo present 13:00: [id number] 00 Neuro anxiety Neuro/Emot Resolve 2019-02-10 Moon present ion d 09-11 09:00:00 Danilo 13:00: [id number] 00 Cardio edema Cardiovasc Resolve 2017-06-18 Moon ular d 10-07 11:47:00 Danilo 13:05: [id number] 00 Respiratory dyspnea Respirator Unknown Moon present y 10-07 Danilo 13:05: [id number] 00 Activity ADL Activity Resolve 2017-06-18 Moon assistance d 10-07 11:47:00 Danilo required 13:05: [id number] 00 Musculoskel transfer Musculoske Resolve 2016-10-23 Moon etal assistance letal d 10-07 11:30:00 Danilo required 13:05: [id number] 00 Respiratory treatments Respirator Resolve 2017-10-22 Susan ordered y d 10-30 12:00:00 [place]y 11:00: [id number] 00 Nutrition knowledge/s Nutrition Resolve 2016-11-20 Susan kill d 10-30 09:45:00 S[place]y deficit: cg 11:00: [id number] 00 Respiratory dyspnea Respirator Unknown Susan present y 10-31 S[place]y 11:30: [id number] 00 Respiratory dyspnea Respirator Unknown Susan present y 11-13 S[place]y 13:45: [id number] 00 Respiratory dyspnea Respirator Unknown Purnima present y 11-27 Burgess 10:30: [id number] 00 Respiratory CPAP Respirator Unknown Purnima treatments y 4- Burgess in home 10:30: [id number] 00 Nutrition nutritional Nutrition Resolve 2017-05-21 Purnima restriction d 12-04 13:07:00 Burgess s 10:00: [id number] 00 Respiratory dyspnea Respirator Unknown Susan present y 12-11 Sibley 12:15: [id number] 00 Test/Treatm tests Test/Injec Resolve 2017-12-31 Purnima ent ordered t/Rashard d 12-18 11:45:00 Burgess [id number] Respiratory dyspnea Respirator Unknown Susan present y 12-25 S[place]y 12:20: [id number] 00 Musculoskel transfer Musculoske Unknown Purnima etal assistance letal 01-01 Burgess required 09:45: [id number] 00 Musculoskel requires Musculoske Unknown Purnima etal human letal 01-01 Burgess assist to 09:45: [id number] leave home 00 Respiratory dyspnea Respirator Unknown Susan present y 01-08 Sibley 11:50: [id number] 00 Respiratory lung sounds Respirator Unknown Susan deficit y 01-15 Sibley 13:00: [id number] 00 Respiratory dyspnea Respirator Unknown Juliana present y 01-29 Wilbert 11:15: [id number] 00 Respiratory dyspnea Respirator Unknown Susan present y 02-19 Sibley 10:38: [id number] 00 Cardio knowledge/s Cardiovasc Resolve 2017-09-30 Juliana kill ular d 03-05 11:00:00 Wilbert deficit: cg 12:13: [id number] 00 Respiratory dyspnea Respirator Unknown Susan present y 03-12 Sibley 10:51: [id number] 00 Musculoskel requires Musculoske Unknown Juliana etal human letal 03-19 Wilbert assist to 11:56: [id number] leave home 00 Respiratory dyspnea Respirator Unknown Juliana present y 03-24 Wilbert 12:05: [id number] 00 Nutrition knowledge/s Nutrition Resolve 2017-05-21 Juliana kill d 03-24 13:07:00 Wilbert deficit: cg 12:05: [id number] 00 Respiratory dyspnea Respirator Unknown Tammee present y 04-02 Amina-Hor 11:38: an 00 Musculoskel requires Musculoske Resolve 2018-12-30 Juliana etal human letal d 04-02 09:56:00 Wilbert assist to 11:38: [id number] leave home 00 Respiratory dyspnea Respirator Unknown Susan present y 9 S[place]y 15:15: [id number] 00 Musculoskel transfer Musculoske Resolve 2018-12-30 Juliana etal assistance letal d 04-30 09:56:00 Wilbert required 13:23: [id number] 00 Respiratory dyspnea Respirator Unknown 2016-08 Susan present y 0- Sibley 11:59: [id number] 00 Cardio knowledge/s Cardiovasc Resolve 2016-082017-09-30 [place] [...] clinically d 0-11 11:47:00 Mal[place] 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 Respiratory dyspnea Respirator Unknown 2016-08 [place] present y 0-18 [place] 13:07: RN 00 Nutrition knowledge/s Nutrition Resolve 2016-082017-05-21 [place] kill d 0-18 13:07:00 [place] deficit: pt 13:07: RN 00 Musculoskel requires Musculoske Resolve 2016-082018-12-30 [place] etal special letal d 0-18 09:56:00 Mal[place] transportat 13:07: RN ion 00 Respiratory dyspnea Respirator Unknown 2016-08 Susan present y 0-25 Sibley 13:00: [id number] 00 Nutrition nutritional Nutrition Resolve 2016-082017-12-17 [place] restriction d 0-26 12:29:00 Malnoske s 14:20: RN 00 Nutrition knowledge/s Nutrition Resolve 2016-082017-12-17 [place] kill d 0-26 12:29:00 [place] deficit: pt 14:20: RN 00 Elimination urinary Eliminatio Resolve 2016-082017-06-18 [place] incontinenc n d 0- 11:47:00 [place] e 14:20: RN 00 Respiratory dyspnea Respirator Unknown 2016-08 Milagros present y 08-18 Alexandro Roya 12:53: [id number] 00 Respiratory dyspnea Respirator Resolve 2016-082018-01-28 Milagros present y d 09-01 11:42:00 Alexandro Roya 11:34: [id number] 00 Cardio edema Cardiovasc Resolve 2016-082018-12-30 [place] [...] 2017-09-30 Susan incontinenc n d 1- 11:00:00 Sibley e 11:29: [id number] 00 Medication potential Meds Resolve 2018-03-25 [place] clinically d 2-21 11:00:00 [place] significant 09:50: 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 administrator 00 issue Respiratory oxygen Respirator Resolve 2018-01-28 [place] treatments y d 2-27 11:42:00 [place] in home 11:00: RN 00 Respiratory CPAP Respirator Resolve 2018-01-28 Susan treatments y d 3-14 11:42:00 Sibley in home 12:20: [id number] 00 Elimination urinary Eliminatio Resolve 2017-10-22 [place] incontinenc n d 3-21 12:00:00 Malnoske e 12:00: RN 00 Elimination urinary Eliminatio Resolve 2017-12-17 [place] incontinenc n d 4-18 12:29:00 Mal[place]ke e 10:37: RN 00 Medication oral med Meds Resolve 2018-03-25 Juliana assistance d 11-28 11:00:00 Wilbert required 14:17: [id number] 00 Endo/Marquis anti-coagul Endo/Marquis Resolve 2018-12-30 [place] ation d 12-31 09:56:00 Mal[place]ke therapy 11:45: RN 00 Nutrition nutritional Nutrition Resolve 2018-06-17 [place] restriction d 12-31 10:01:00 [place] s 11:45: RN 00 Elimination urinary Eliminatio Resolve 2018-01-28 [place] incontinenc n d 12-31 11:42:00 [place] e 11:45: RN 00 Respiratory lung sounds Respirator Resolve 2019-02-10 Tiki deficit y d 01-28 09:00:00 Guidelli 11:42: [id number] 00 OT: Self self-care OT: Active Kesiha Care deficit Self-Care 02-12 Jeison 13:00: [id number] 00 OT: Self knowledge/s OT: Active Keshia Care kill Self-Care 02-12 Jeison deficit: pt 13:00: [id number] 00 Respiratory oxygen Respirator Resolve 2019-02-10 Lori treatments y d 02-25 09:00:00 [place] in home 08:32: h [id number] 00 Elimination urinary Eliminatio Resolve 2019-01-13 Lori incontinenc n d 02-25 09:45:00 Yakov-Zos e 08:32: h [id number] 00 Respiratory dyspnea Respirator Resolve 2019-02-10 Juliana present y d 03-25 09:00:00 Denny 11:00: [id number] 00 Medication oral med Meds Resolve 2018-06-17 Lori assistance d 04-22 10:01:00 Yakov-Zos required 10:16: h [id number] 00 Nutrition nutritional Nutrition Resolve 2017-082019-01-13 Lori restriction d 09-15 09:45:00 [place]os s 10:25: h [id number] 00 Neuro impaired Neuro/Emot Resolve 2017-082019-07-20 Lori decision-ma ion d 2-20 10:28:00 Yakov-Zos johny 10:55: h [id number] 00 Neuro behavior Neuro/Emot Resolve 2017-082019-07-20 Lori problems ion d 2-20 10:28:00 [place]os 10:55: h [id number] 00 Endo/Marquis glucose Endo/Marquis Resolve 2018-12-30 Laura testing d 2- 09:56:00 Violette, dependence 14:40: [id number] 00 Medication oral med Meds Resolve 2018-09-24 Laura assistance d 2- 14:40:00 Violette, required 14:40: [id number] 00 Endo/Marquis anti-coagul Endo/Marquis Resolve 2019-02-10 Juliana [...] 0-30 10:30:00 Stacey e 11:00: [employer] 00 [id number] Respiratory CPAP Respirator Resolve 2018-082019-07-20 [place] treatments [...] 2-26 10:22:00 Stacey e 09:00: [employer] 00 [id number] Musculoskel requires Musculoske Active [place] etal human [...] mg-bioflv-r ose ose tablet,ext. tablet,ext. release release Pom[place] 3 Pomona 3 2014-08 No Roth 2400mg Unknown Fish [...] LOPEZ gel gel cyclobenzap cyclobenzap 2014-08 No [place] 1 tab Unknown rine 10 mg rine 10 mg 08-14 ,Can tablet tablet Dinesh Voltaren 1 Voltaren 1 2018- No [place] 4 grams Unknown % topical % topical 12-12 Can LOPEZ gel Dinesh MSM 1,000 MSM 1,000 No [place] 1 tab Unknown mg tablet mg tablet 10-23 Can LOPEZ milk milk 2016- No [place] 2 caps Unknown thistle 175 thistle 175 10-23 Can LOPEZ mg tablet mg tablet Dinesh milk milk No [place] 1 Unknown thistle 350 thistle 350 10-30 Can LOPEZ capusle mg capsule mg capsule Dinesh (350 mg traMADol 50 traMADol 50 2016- No Roth 50-75mg Unknown mg tablet mg tablet 10-30 Jan LOPEZ aspirin 81 aspirin 81 No [place] 1 Unknown mg chewable mg chewable 11-29 Can LOPEZ tablet tablet tablet Dinesh (81 Mg) acetaminoph acetaminoph No [place] 2 Unknown en 500 mg en 500 mg 12-18 Can LOPEZ tablets tablet tablet Dinesh (1000mg ) busPIRone busPIRone 2016- No [place] 1 Unknown 10 mg 10 mg 01-01 Can LOPEZ tablet tablet Dinesh naproxen naproxen 2016- No [place] 1 tab Unknown 500 mg 500 mg 01-08 Can LOPEZ tablet,juan tablet,juan Dinesh yed release yed release busPIRone busPIRone No [place] 1 Unknown 10 mg 10 mg 5 Can LOPEZ tablet tablet Dinesh traMADol 50 traMADol 50 2018- No [place] 50-75mg Unknown mg tablet mg tablet 10-30 Can LOPEZ Vitamin D3 Vitamin D3 2016-08 No [place] 1,000 Unknown 1,000 unit 1,000 unit 0 Can LOPEZ Unit capsule capsule Dinesh levoFLOXaci levoFLOXaci 2017- No [place] 500mg Unknown n 500 mg n 500 mg 09-01 Can LOPEZ tablet tablet Dinesh naproxen naproxen No [place] 1 tab Unknown 500 mg 500 mg 01-08 Can LOPEZ tablet,juan tablet,juan Dinesh yed release yed release ALPRAZolam ALPRAZolam 2014-08 No Roth 1 tab Unknown 0.5 mg 0.5 mg 08-14 MDJan tablet tablet ginkgo ginkgo No [place] Unknown Unknown biloba 60 biloba 60 03-25 [...]
--- OUTSIDE RECORDS SUMMARY | 2019-10-06 10:55 | XMS REPORT ---
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 [place] (current) (current) [place] use of use of RN aspirin aspirin Respiratory treatments Respirator Resolve 2014-082016-09-25 Carmelita ordered y d 1-11 11:45:00 Dale [id number] Safety knowledge/s Safety Resolve 2016-02-08 Kayleigh kill d 09-15 15:04:00 Sinnigen deficit: pt 15:30: [id number] Diagnoses knowledge/s Diagnoses Active Tammee kill 09-15 [place] deficit: pt 15:30: an 00 Pain frequent Pain Mgmt Resolve 2018-10-21 Carmelita pain d 10-10 11:00:00 Dale 14:30: [id number] 00 Pain knowledge/s Pain Mgmt Resolve 2015-10-11 Carmelita kill d 10-10 14:30:00 Dale deficit: cg 14:30: [id number] 00 Cardio hypertensio Cardiovasc Resolve 2016-09-25 Carmelita n ular d 10-10 11:45:00 Dale 14:30: [id number] 00 Cardio knowledge/s Cardiovasc Resolve 2016-09-25 Carmelita kill ular d 10-10 11:45:00 Dale deficit: cg 14:30: [id number] 00 Respiratory dyspnea Respirator Resolve 2017-06-18 Carmeltia present y d 10-10 11:47:00 Dale 14:30: [id number] 00 Respiratory oxygen Respirator Resolve 2017-06-18 Carmelita treatments y d 10-10 11:47:00 Dale in home 14:30: [id number] 00 Respiratory lung sounds Respirator Resolve 2016-05-01 Carmelita deficit y d 10-10 14:30:00 Dale 14:30: [id number] 00 Respiratory CPAP Respirator Resolve 2017-06-18 Carmelita treatments y d 10-10 11:47:00 Dale in home 14:30: [id number] 00 Respiratory knowledge/s Respirator Resolve 2015-10-11 Carmelita kill y d 10-10 14:30:00 Dale deficit: cg 14:30: [id number] 00 Nutrition knowledge/s Nutrition Resolve 2015-10-11 Carmelita kill d 10-10 14:30:00 Dale deficit: cg 14:30: [id number] 00 Neuro anxiety Neuro/Emot Resolve 2016-02-08 Carmelita present ion d 10-10 15:04:00 Dale 14:30: [id number] 00 Neuro depressive Neuro/Emot Resolve 2016-02-08 Carmelita feelings ion d 10-10 15:04:00 Dale present 14:30: [id number] 00 Neuro knowledge/s Neuro/Emot Resolve 2016-02-08 Carmelita kill ion d 10-10 15:04:00 Dale deficit: pt 14:30: [id number] 00 Neuro knowledge/s Neuro/Emot Resolve 2016-02-08 Carmelita kill ion d 10-10 15:04:00 Dale deficit: cg 14:30: [id number] 00 Activity knowledge/s Activity Resolve 2015-10-11 Carmelita kill d 10-10 14:30:00 Dale deficit: cg 14:30: [id number] 00 Safety safety Safety Resolve 2015-10-11 Carmelita hazards d 10-10 14:30:00 Dale present 14:30: [id number] 00 Safety fall risk Safety Resolve 2015-10-11 Carmelita factor d 10-10 14:30:00 Dale present 14:30: [id number] 00 Safety risk for Safety Resolve 2015-10-11 Carmelita hospitaliza d 10-10 14:30:00 Dale tion 14:30: [id number] 00 Diagnoses knowledge/s Diagnoses Active Carmelita kill 10-10 Dale deficit: cg 14:30: [id number] 00 Musculoskel knowledge/s Musculoske Resolve 2015-10-11 Carmelita etal kill letal d 10-10 14:30:00 Dale deficit: cg 14:30: [id number] 00 Nutrition knowledge/s Nutrition Resolve 2016-09-25 Kayleigh kill d 10-12 11:45:00 Sinnigen deficit: cg 15:30: [id number] 00 Safety safety Safety Active Kayleigh hazards - Sinnigen present 15:30: [id number] 00 Safety fall risk Safety Active Kayleigh factor - Sinnigen present 15:30: [id number] 00 Safety risk for Safety Active Kayleigh hospitaliza - Sinnigen tion 15:30: [id number] 00 Cardio edema Cardiovasc Resolve 2016-09-25 Carmelita ular d 3-18 11:45:00 Dale 15:30: [id number] 00 Pain frequent Pain Mgmt Unknown Moon pain 12-05 Danilo 16:31: [id number] 00 Pain knowledge/s Pain Mgmt Resolve 2016-02-08 Moon kill d 12-05 15:04:00 Danilo deficit: cg 16:31: [id number] 00 Cardio knowledge/s Cardiovasc Unknown Moon kill ular 12-05 Danilo deficit: cg 16:31: [id number] 00 Respiratory knowledge/s Respirator Resolve 2015-12-06 Moon kill y d 12-05 16:31:00 Danilo deficit: cg 16:31: [id number] 00 Integument skin Integument Resolve 2016-02-08 Moon integrity d 12-05 15:04:00 Danilo risk 16:31: [id number] 00 Elimination urinary Eliminatio Resolve 2016-02-08 Moon incontinenc n d 12-05 15:04:00 Danilo e 16:31: [id number] 00 Activity knowledge/s Activity Resolve 2016-02-08 Moon kill d 12-05 15:04:00 Danilo deficit: cg 16:31: [id number] 00 Respiratory knowledge/s Respirator Resolve 2016-02-08 Moon kill y d 12-20 15:04:00 Danilo deficit: cg 15:49: [id number] 00 Respiratory knowledge/s Respirator Unknown 2016-02-08 Kayleigh kill y 01-10 15:04:00 Sinnigen deficit: pt 15:30: [id number] 00 Medication injectable Meds Resolve 2016-02-08 Moon med d 02-07 15:04:00 Danilo assistance 15:04: [id number] required 00 Cardio hypertensio Cardiovasc Unknown Moon n ular 02-22 Danilo 09:45: [id number] 00 Elimination urinary Eliminatio Resolve 2016-02-23 Moon incontinenc n d 02-22 09:45:00 Danilo aggarwal 09:45: [id number] 00 Elimination ostomy Eliminatio Resolve 2016-04-17 Moon present n d 02-22 11:53:00 Danilo 09:45: [id number] 00 Elimination urinary Eliminatio Resolve 2016-04-17 Susan incontinenc n d 03-20 11:53:00 Badin e 10:03: [id number] 00 Neuro anxiety Neuro/Emot Resolve 2016-08-21 Moon present ion d 04-05 12:10:00 Danilo 15:49: [id number] 00 Neuro depressive Neuro/Emot Resolve 2016-08-21 Moon feelings ion d 04-05 12:10:00 Danilo present 15:49: [id number] 00 Neuro knowledge/s Neuro/Emot Resolve 2016-08-21 Moon kill ion d 04-05 12:10:00 Danilo deficit: pt 15:49: [id number] 00 Neuro knowledge/s Neuro/Emot Resolve 2016-08-21 Moon kill ion d 04-05 12:10:00 Danilo deficit: cg 15:49: [id number] 00 Activity ADL Activity Resolve 2016-06-19 Moon assistance d 04-05 11:30:00 Danilo required 15:49: [id number] 00 Activity knowledge/s Activity Resolve 2016-05-01 Moon kill d 04-05 14:30:00 Danilo deficit: cg 15:49: [id number] 00 Elimination urinary Eliminatio Resolve 2016-05-01 Susan incontinenc n d 04-24 14:30:00 Badin e 15:00: [id number] 00 Elimination urinary Eliminatio Resolve 2016-05-01 Susan frequency n d 04-24 14:30:00 Badin 15:00: [id number] 00 Respiratory lung sounds Respirator Unknown 2015-08 Susan deficit y 0-05 Badin 14:00: [id number] 00 Elimination urinary Eliminatio Resolve 2015-082016-05-15 Moon incontinenc n d 14:11:00 Danilo aggarwal 14:11: [id number] 00 Elimination urinary Eliminatio Resolve 2015-082016-05-29 Moon incontinenc n d 13:42:00 Danilo aggarwal 13:42: [id number] 00 Respiratory lung sounds Respirator Resolve 2015-082016-07-03 Susan deficit y d 08-05 14:12:00 Badin 12:38: [id number] 00 Respiratory CPAP Respirator Unknown 2015-08 Moon treatments y 08-06 Carrasco in home 14:31: [id number] 00 Respiratory dyspnea Respirator Unknown 2015-08 Moon present y 08-06 Carrasco 14:31: [id number] 00 Elimination urinary Eliminatio Resolve 2015-082016-06-06 Moon incontinenc n d 08-06 14:31:00 Carrasco e 14:31: [id number] 00 Integument skin Integument Active 2015-08 Moon integrity 09-02 Carrasco risk 14:12: [id number] 00 Elimination urinary Eliminatio Resolve 2015-082016-07-03 Moon incontinenc n d 09-02 14:12:00 Danilo e 14:12: [id number] 00 Elimination urinary Eliminatio Resolve 2015-082016-08-09 Moon incontinenc n d -14 10:32:00 Danilo aggarwal 12:00: [id number] 00 Respiratory lung sounds Respirator Resolve 2015-082016-08-21 Moon deficit y d 10-01 12:10:00 Danilo 10:43: [id number] 00 Cardio edema Cardiovasc Unknown Moon ular 08-09 Danilo 10:32: [id number] 00 Respiratory dyspnea Respirator Unknown Moon present y 08-09 Danilo 10:32: [id number] 00 Activity ADL Activity Resolve 2016-08-21 Moon assistance d 08-09 12:10:00 Danilo required 10:32: [id number] 00 Musculoskel transfer Musculoske Resolve 2016-09-25 Moon etal assistance letal d 08-09 11:45:00 Danilo required 10:32: [id number] 00 Musculoskel knowledge/s Musculoske Resolve 2016-09-25 Moon etal kill letal d 08-09 11:45:00 Danilo deficit: cg 10:32: [id number] 00 Nutrition nutritional Nutrition Resolve 2016-11-20 Moon restriction d 08-21 09:45:00 Danilo kirby 12:10: [id number] 00 Neuro depressive Neuro/Emot Resolve 2019-02-10 Moon feelings ion d 09-11 09:00:00 Danilo present 13:00: [id number] 00 Neuro anxiety Neuro/Emot Resolve 2019-02-10 Moon present ion d 09-11 09:00:00 Danilo 13:00: [id number] 00 Cardio edema Cardiovasc Resolve 2017-06-18 Moon ular d 10-07 11:47:00 Danilo 13:05: [id number] 00 Respiratory dyspnea Respirator Unknown Moon present y 10-07 Danilo 13:05: [id number] 00 Activity ADL Activity Resolve 2017-06-18 Moon assistance d 10-07 11:47:00 Danilo required 13:05: [id number] 00 Musculoskel transfer Musculoske Resolve 2016-10-23 Moon etal assistance letal d 10-07 11:30:00 Danilo required 13:05: [id number] 00 Respiratory treatments Respirator Resolve 2017-10-22 Susan ordered y d 10-30 12:00:00 Badin 11:00: [id number] 00 Nutrition knowledge/s Nutrition Resolve 2016-11-20 Susan kill d 10-30 09:45:00 Badin deficit: cg 11:00: [id number] 00 Respiratory dyspnea Respirator Unknown Susan present y 10-31 Badin 11:30: [id number] 00 Respiratory dyspnea Respirator Unknown Susan present y 11-13 Badin 13:45: [id number] 00 Respiratory dyspnea Respirator Unknown Purnima present y 11-27 Burgess 10:30: [id number] 00 Respiratory CPAP Respirator Unknown Purnima treatments y 4- Burgess in home 10:30: [id number] 00 Nutrition nutritional Nutrition Resolve 2017-05-21 Purnima restriction d 12-04 13:07:00 Burgess s 10:00: [id number] 00 Respiratory dyspnea Respirator Unknown Susan present y 12-11 Badin 12:15: [id number] 00 Test/Treatm tests Test/Injec Resolve 2017-12-31 Purnima ent ordered t/Rashard d 12-18 11:45:00 Burgess [id number] Respiratory dyspnea Respirator Unknown Susan present y 12-25 Badin 12:20: [id number] 00 Musculoskel transfer Musculoske Unknown Purnima etal assistance letal 01-01 Burgess required 09:45: [id number] 00 Musculoskel requires Musculoske Unknown Purnima etal human letal 01-01 Burgess assist to 09:45: [id number] leave home 00 Respiratory dyspnea Respirator Unknown Susan present y 01-08 Badin 11:50: [id number] 00 Respiratory lung sounds Respirator Unknown Susan deficit y 01-15 Badin 13:00: [id number] 00 Respiratory dyspnea Respirator Unknown Juliana present y 01-29 Wilbert 11:15: [id number] 00 Respiratory dyspnea Respirator Unknown Susan present y 02-19 Badin 10:38: [id number] 00 Cardio knowledge/s Cardiovasc Resolve 2017-09-30 Juliana kill ular d 03-05 11:00:00 Wilbert deficit: cg 12:13: [id number] 00 Respiratory dyspnea Respirator Unknown Susan present y 03-12 Badin 10:51: [id number] 00 Musculoskel requires Musculoske Unknown Juliana etal human letal 03-19 Wilbert assist to 11:56: [id number] leave home 00 Respiratory dyspnea Respirator Unknown Juliana present y 03-24 Wilbert 12:05: [id number] 00 Nutrition knowledge/s Nutrition Resolve 2017-05-21 Juliana kill d 03-24 13:07:00 Wilbert deficit: cg 12:05: [id number] 00 Respiratory dyspnea Respirator Unknown Tammee present y 04-02 Amina-Hor 11:38: an 00 Musculoskel requires Musculoske Resolve 2018-12-30 Juliana etal human letal d 04-02 09:56:00 Wilbert assist to 11:38: [id number] leave home 00 Respiratory dyspnea Respirator Unknown Susan present y 9 Badin 15:15: [id number] 00 Musculoskel transfer Musculoske Resolve 2018-12-30 Juliana etal assistance letal d 04-30 09:56:00 Wilbert required 13:23: [id number] 00 Respiratory dyspnea Respirator Unknown 2016-08 Susan present y 0- Badin 11:59: [id number] 00 Cardio knowledge/s Cardiovasc Resolve 2016-082017-09-30 [place] [...] clinically d 0-11 11:47:00 Mal[place] 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 Respiratory dyspnea Respirator Unknown 2016-08 [place] present y 0-18 [place] 13:07: RN 00 Nutrition knowledge/s Nutrition Resolve 2016-082017-05-21 [place] kill d 0-18 13:07:00 [place] deficit: pt 13:07: RN 00 Musculoskel requires Musculoske Resolve 2016-082018-12-30 [place] etal special letal d 0-18 09:56:00 Mal[place] transportat 13:07: RN ion 00 Respiratory dyspnea Respirator Unknown 2016-08 Susan present y 0-25 Badin 13:00: [id number] 00 Nutrition nutritional Nutrition Resolve 2016-082017-12-17 [place] restriction d 0-26 12:29:00 Malnoske s 14:20: RN 00 Nutrition knowledge/s Nutrition Resolve 2016-082017-12-17 [place] kill d 0-26 12:29:00 [place] deficit: pt 14:20: RN 00 Elimination urinary Eliminatio Resolve 2016-082017-06-18 [place] incontinenc n d 0- 11:47:00 [place]ke e 14:20: RN 00 Respiratory dyspnea Respirator Unknown 2016-08 Milagros present y 08-18 Alexandro Roya 12:53: [id number] 00 Respiratory dyspnea Respirator Resolve 2016-082018-01-28 Milagros present y d 09-01 11:42:00 Alexandro Roya 11:34: [id number] 00 Cardio edema Cardiovasc Resolve 2016-082018-12-30 [place] [...] 2017-09-30 Susan incontinenc n d 1- 11:00:00 Badin e 11:29: [id number] 00 Medication potential Meds Resolve 2018-03-25 [place] clinically d 2-21 11:00:00 Mal[place] significant 09:50: leather sponger 00 issue Respiratory oxygen Respirator Resolve 2018-01-28 [place] treatments y d 2-27 11:42:00 Mal[place] in home 11:00: RN 00 Respiratory CPAP Respirator Resolve 2018-01-28 Susan treatments y d 3-14 11:42:00 Badin in home 12:20: [id number] 00 Elimination urinary Eliminatio Resolve 2017-10-22 [place] incontinenc n d 3-21 12:00:00 Malnoske e 12:00: RN 00 Elimination urinary Eliminatio Resolve 2017-12-17 [place] incontinenc n d 4-18 12:29:00 Malnoske e 10:37: RN 00 Medication oral med Meds Resolve 2018-03-25 Juliana assistance d 11-28 11:00:00 Wilbert required 14:17: [id number] 00 Endo/Marquis anti-coagul Endo/Marquis Resolve 2018-12-30 [place] ation d 12-31 09:56:00 Malnoske therapy 11:45: RN 00 Nutrition nutritional Nutrition Resolve 2018-06-17 [place] restriction d 12-31 10:01:00 Malnoske s 11:45: RN 00 Elimination urinary Eliminatio Resolve 2018-01-28 [place] incontinenc n d 12-31 11:42:00 Malnoske e 11:45: RN 00 Respiratory lung sounds Respirator Resolve 2019-02-10 Tiki deficit y d 01-28 09:00:00 Guidelli 11:42: [id number] 00 OT: Self self-care OT: Active Keshia Care deficit Self-Care 02-12 Jeison 13:00: [id number] 00 OT: Self knowledge/s OT: Active Keshia Care kill Self-Care 02-12 Jeison deficit: pt 13:00: [id number] 00 Respiratory oxygen Respirator Resolve 2019-02-10 Lori treatments y d 02-25 09:00:00 Dixon-Zos in home 08:32: h [id number] 00 Elimination urinary Eliminatio Resolve 2019-01-13 Lori incontinenc n d 02-25 09:45:00 Yakov-Zos e 08:32: h [id number] 00 Respiratory dyspnea Respirator Resolve 2019-02-10 Juliana present y d 03-25 09:00:00 Denny 11:00: [id number] 00 Medication oral med Meds Resolve 2018-06-17 Lori assistance d 04-22 10:01:00 Yakov-Zos required 10:16: h [id number] 00 Nutrition nutritional Nutrition Resolve 2017-082019-01-13 Lori restriction d 09-15 09:45:00 Dixon-Zos s 10:25: h [id number] 00 Neuro impaired Neuro/Emot Resolve 2017-082019-07-20 Lori decision-ma ion d 2-20 10:28:00 Yakov-Zos johny 10:55: h [id number] 00 Neuro behavior Neuro/Emot Resolve 2017-082019-07-20 Lori problems ion d 2-20 10:28:00 Dixon-Zos 10:55: h [id number] 00 Endo/Marquis glucose Endo/Marquis Resolve 2018-12-30 Laura testing d 2- 09:56:00 Violette, dependence 14:40: [id number] 00 Medication oral med Meds Resolve 2018-09-24 Laura assistance d 2- 14:40:00 Violette, required 14:40: [id number] 00 Endo/Marquis anti-coagul Endo/Marquis Resolve 2019-02-10 Juliana [...] 0-30 10:30:00 Stacey e 11:00: [employer] 00 [id number] Respiratory CPAP Respirator Resolve 2018-082019-07-20 [place] treatments [...] 2-26 10:22:00 Stacey e 09:00: [employer] 00 [id number] Musculoskel requires Musculoske Active [place] etal human [...] mg-bioflv-r ose ose tablet,ext. tablet,ext. release release [place] 3 [place] 3 2014-08 No Roth 2400mg Unknown Fish [...] LOPEZ gel gel cyclobenzap cyclobenzap 2014-08 No [place] 1 tab Unknown rine 10 mg rine 10 mg 08-14 ,Can tablet tablet Dinesh Voltaren 1 Voltaren 1 2018- No [place] 4 grams Unknown % topical % topical 12-12 Can LOPEZ gel Dinesh MSM 1,000 MSM 1,000 No [place] 1 tab Unknown mg tablet mg tablet 10-23 Can LOPEZ milk milk 2016- No [place] 2 caps Unknown thistle 175 thistle 175 10-23 Can LOPEZ mg tablet mg tablet Dinesh milk milk No [place] 1 Unknown thistle 350 thistle 350 10-30 Can LOPEZ capusle mg capsule mg capsule Dinesh (350 mg traMADol 50 traMADol 50 2016- No Roth 50-75mg Unknown mg tablet mg tablet 10-30 Jan LOPEZ aspirin 81 aspirin 81 No [place] 1 Unknown mg chewable mg chewable 11-29 Can LOPEZ tablet tablet tablet Dinesh (81 Mg) acetaminoph acetaminoph No [place] 2 Unknown en 500 mg en 500 mg 12-18 Can LOPEZ tablets tablet tablet Dinesh (1000mg ) busPIRone busPIRone 2016- No [place] 1 Unknown 10 mg 10 mg 01-01 Can LOPEZ tablet tablet Dinesh naproxen naproxen 2016- No [place] 1 tab Unknown 500 mg 500 mg 01-08 Can LOPEZ tablet,juan tablet,juan Dinesh yed release yed release busPIRone busPIRone No [place] 1 Unknown 10 mg 10 mg 5 Can LOPEZ tablet tablet Dinesh traMADol 50 traMADol 50 2018- No [place] 50-75mg Unknown mg tablet mg tablet 10-30 Can LOPEZ Vitamin D3 Vitamin D3 2016-08 No [place] 1,000 Unknown 1,000 unit 1,000 unit 0 Can LOPEZ Unit capsule capsule Dinesh levoFLOXaci levoFLOXaci 2017- No [place] 500mg Unknown n 500 mg n 500 mg 09-01 Can LOPEZ tablet tablet Dinesh naproxen naproxen No [place] 1 tab Unknown 500 mg 500 mg 01-08 Can LOPEZ tablet,juan tablet,juan Dinesh yed release yed release ALPRAZolam ALPRAZolam 2014-08 No [place] 1 tab Unknown 0.5 mg 0.5 mg 08-14 MDJan tablet tablet ginkgo ginkgo No [place] Unknown Unknown biloba 60 biloba 60 03-25 [...]
--- OUTSIDE RECORDS SUMMARY | 2019-10-06 10:56 | XMS REPORT ---
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 [place] (current) (current) [place] use of use of RN aspirin aspirin Respiratory treatments Respirator Resolve 2014-082016-09-25 Carmelita ordered y d 1-11 11:45:00 Dale [id number] Safety knowledge/s Safety Resolve 2016-02-08 Kayleigh kill d 09-15 15:04:00 Sinnigen deficit: pt 15:30: [id number] Diagnoses knowledge/s Diagnoses Active Tammee kill 09-15 [place]-Hor deficit: pt 15:30: an 00 Pain frequent Pain Mgmt Resolve 2018-10-21 Carmelita pain d 10-10 11:00:00 Dale 14:30: [id number] 00 Pain knowledge/s Pain Mgmt Resolve 2015-10-11 Carmelita kill d 10-10 14:30:00 Dale deficit: cg 14:30: [id number] 00 Cardio hypertensio Cardiovasc Resolve 2016-09-25 Carmelita n ular d 10-10 11:45:00 Dale 14:30: [id number] 00 Cardio knowledge/s Cardiovasc Resolve 2016-09-25 Carmelita kill ular d 10-10 11:45:00 Dale deficit: cg 14:30: [id number] 00 Respiratory dyspnea Respirator Resolve 2017-06-18 Carmelita present y d 10-10 11:47:00 Dale 14:30: [id number] 00 Respiratory oxygen Respirator Resolve 2017-06-18 Carmelita treatments y d 10-10 11:47:00 Dale in home 14:30: [id number] 00 Respiratory lung sounds Respirator Resolve 2016-05-01 Carmelita deficit y d 10-10 14:30:00 Dale 14:30: [id number] 00 Respiratory CPAP Respirator Resolve 2017-06-18 Carmelita treatments y d 10-10 11:47:00 Dale in home 14:30: [id number] 00 Respiratory knowledge/s Respirator Resolve 2015-10-11 Carmelita kill y d 10-10 14:30:00 Dale deficit: cg 14:30: [id number] 00 Nutrition knowledge/s Nutrition Resolve 2015-10-11 Carmelita kill d 10-10 14:30:00 Dale deficit: cg 14:30: [id number] 00 Neuro anxiety Neuro/Emot Resolve 2016-02-08 Carmelita present ion d 10-10 15:04:00 Dale 14:30: [id number] 00 Neuro depressive Neuro/Emot Resolve 2016-02-08 Carmelita feelings ion d 10-10 15:04:00 Dale present 14:30: [id number] 00 Neuro knowledge/s Neuro/Emot Resolve 2016-02-08 Carmelita kill ion d 10-10 15:04:00 Dale deficit: pt 14:30: [id number] 00 Neuro knowledge/s Neuro/Emot Resolve 2016-02-08 Carmelita kill ion d 10-10 15:04:00 Dale deficit: cg 14:30: [id number] 00 Activity knowledge/s Activity Resolve 2015-10-11 Carmelita kill d 10-10 14:30:00 Dale deficit: cg 14:30: [id number] 00 Safety safety Safety Resolve 2015-10-11 Carmelita hazards d 10-10 14:30:00 Dale present 14:30: [id number] 00 Safety fall risk Safety Resolve 2015-10-11 Carmelita factor d 10-10 14:30:00 Dale present 14:30: [id number] 00 Safety risk for Safety Resolve 2015-10-11 Carmelita hospitaliza d 10-10 14:30:00 Dale tion 14:30: [id number] 00 Diagnoses knowledge/s Diagnoses Active Carmelita kill 10-10 Dale deficit: cg 14:30: [id number] 00 Musculoskel knowledge/s Musculoske Resolve 2015-10-11 Carmelita etal kill letal d 10-10 14:30:00 Dale deficit: cg 14:30: [id number] 00 Nutrition knowledge/s Nutrition Resolve 2016-09-25 Kayleigh kill d 10-12 11:45:00 Sinnigen deficit: cg 15:30: [id number] 00 Safety safety Safety Active Kayleigh hazards - Sinnigen present 15:30: [id number] 00 Safety fall risk Safety Active Kayleigh factor - Sinnigen present 15:30: [id number] 00 Safety risk for Safety Active Kayleigh hospitaliza - Sinnigen tion 15:30: [id number] 00 Cardio edema Cardiovasc Resolve 2016-09-25 Carmelita ular d 3-18 11:45:00 Dale 15:30: [id number] 00 Pain frequent Pain Mgmt Unknown Moon pain 12-05 Danilo 16:31: [id number] 00 Pain knowledge/s Pain Mgmt Resolve 2016-02-08 Moon kill d 12-05 15:04:00 Danilo deficit: cg 16:31: [id number] 00 Cardio knowledge/s Cardiovasc Unknown Moon kill ular 12-05 Danilo deficit: cg 16:31: [id number] 00 Respiratory knowledge/s Respirator Resolve 2015-12-06 Moon kill y d 12-05 16:31:00 Danilo deficit: cg 16:31: [id number] 00 Integument skin Integument Resolve 2016-02-08 Moon integrity d 12-05 15:04:00 Danilo risk 16:31: [id number] 00 Elimination urinary Eliminatio Resolve 2016-02-08 Moon incontinenc n d 12-05 15:04:00 Danilo e 16:31: [id number] 00 Activity knowledge/s Activity Resolve 2016-02-08 Moon kill d 12-05 15:04:00 Danilo deficit: cg 16:31: [id number] 00 Respiratory knowledge/s Respirator Resolve 2016-02-08 Moon kill y d 12-20 15:04:00 Danilo deficit: cg 15:49: [id number] 00 Respiratory knowledge/s Respirator Unknown 2016-02-08 Kayleigh kill y 01-10 15:04:00 Sinnigen deficit: pt 15:30: [id number] 00 Medication injectable Meds Resolve 2016-02-08 Moon med d 02-07 15:04:00 Danilo assistance 15:04: [id number] required 00 Cardio hypertensio Cardiovasc Unknown Moon n ular 02-22 Danilo 09:45: [id number] 00 Elimination urinary Eliminatio Resolve 2016-02-23 Moon incontinenc n d 02-22 09:45:00 Danilo aggarwal 09:45: [id number] 00 Elimination ostomy Eliminatio Resolve 2016-04-17 Moon present n d 02-22 11:53:00 Danilo 09:45: [id number] 00 Elimination urinary Eliminatio Resolve 2016-04-17 Susan incontinenc n d 03-20 11:53:00 Wyano e 10:03: [id number] 00 Neuro anxiety Neuro/Emot Resolve 2016-08-21 Moon present ion d 04-05 12:10:00 Danilo 15:49: [id number] 00 Neuro depressive Neuro/Emot Resolve 2016-08-21 Moon feelings ion d 04-05 12:10:00 Danilo present 15:49: [id number] 00 Neuro knowledge/s Neuro/Emot Resolve 2016-08-21 Moon kill ion d 04-05 12:10:00 Danilo deficit: pt 15:49: [id number] 00 Neuro knowledge/s Neuro/Emot Resolve 2016-08-21 Moon kill ion d 04-05 12:10:00 Danilo deficit: cg 15:49: [id number] 00 Activity ADL Activity Resolve 2016-06-19 Moon assistance d 04-05 11:30:00 Danilo required 15:49: [id number] 00 Activity knowledge/s Activity Resolve 2016-05-01 Moon kill d 04-05 14:30:00 Danilo deficit: cg 15:49: [id number] 00 Elimination urinary Eliminatio Resolve 2016-05-01 Susan incontinenc n d 04-24 14:30:00 Wyano e 15:00: [id number] 00 Elimination urinary Eliminatio Resolve 2016-05-01 Susan frequency n d 04-24 14:30:00 Wyano 15:00: [id number] 00 Respiratory lung sounds Respirator Unknown 2015-08 Susan deficit y 0-05 Wyano 14:00: [id number] 00 Elimination urinary Eliminatio Resolve 2015-082016-05-15 Moon incontinenc n d 14:11:00 Danilo aggarwal 14:11: [id number] 00 Elimination urinary Eliminatio Resolve 2015-082016-05-29 Moon incontinenc n d 13:42:00 Danilo aggarwal 13:42: [id number] 00 Respiratory lung sounds Respirator Resolve 2015-082016-07-03 Susan deficit y d 08-05 14:12:00 Wy[place] 12:38: [id number] 00 Respiratory CPAP Respirator Unknown 2015-08 Moon treatments y 08-06 Carrasco in home 14:31: [id number] 00 Respiratory dyspnea Respirator Unknown 2015-08 Moon present y 08-06 Carrasco 14:31: [id number] 00 Elimination urinary Eliminatio Resolve 2015-082016-06-06 Moon incontinenc n d 08-06 14:31:00 Carrsaco e 14:31: [id number] 00 Integument skin Integument Active 2015-08 Moon integrity 09-02 Carrasco risk 14:12: [id number] 00 Elimination urinary Eliminatio Resolve 2015-082016-07-03 Moon incontinenc n d 09-02 14:12:00 Danilo e 14:12: [id number] 00 Elimination urinary Eliminatio Resolve 2015-082016-08-09 Moon incontinenc n d -14 10:32:00 Danilo aggarwal 12:00: [id number] 00 Respiratory lung sounds Respirator Resolve 2015-082016-08-21 Moon deficit y d 10-01 12:10:00 Danilo 10:43: [id number] 00 Cardio edema Cardiovasc Unknown Moon ular 08-09 Danilo 10:32: [id number] 00 Respiratory dyspnea Respirator Unknown Moon present y 08-09 Danilo 10:32: [id number] 00 Activity ADL Activity Resolve 2016-08-21 Moon assistance d 08-09 12:10:00 Danilo required 10:32: [id number] 00 Musculoskel transfer Musculoske Resolve 2016-09-25 Moon etal assistance letal d 08-09 11:45:00 Danilo required 10:32: [id number] 00 Musculoskel knowledge/s Musculoske Resolve 2016-09-25 Moon etal kill letal d 08-09 11:45:00 Danilo deficit: cg 10:32: [id number] 00 Nutrition nutritional Nutrition Resolve 2016-11-20 Moon restriction d 08-21 09:45:00 Danilo kirby 12:10: [id number] 00 Neuro depressive Neuro/Emot Resolve 2019-02-10 Moon feelings ion d 09-11 09:00:00 Danilo present 13:00: [id number] 00 Neuro anxiety Neuro/Emot Resolve 2019-02-10 Moon present ion d 09-11 09:00:00 Danilo 13:00: [id number] 00 Cardio edema Cardiovasc Resolve 2017-06-18 Moon ular d 10-07 11:47:00 Danilo 13:05: [id number] 00 Respiratory dyspnea Respirator Unknown Moon present y 10-07 Danilo 13:05: [id number] 00 Activity ADL Activity Resolve 2017-06-18 Moon assistance d 10-07 11:47:00 Danilo required 13:05: [id number] 00 Musculoskel transfer Musculoske Resolve 2016-10-23 Moon etal assistance letal d 10-07 11:30:00 Danilo required 13:05: [id number] 00 Respiratory treatments Respirator Resolve 2017-10-22 Susan ordered y d 10-30 12:00:00 [place] 11:00: [id number] 00 Nutrition knowledge/s Nutrition Resolve 2016-11-20 Susan kill d 10-30 09:45:00 [place] deficit: cg 11:00: [id number] 00 Respiratory dyspnea Respirator Unknown Susan present y 10-31 Wyano 11:30: [id number] 00 Respiratory dyspnea Respirator Unknown Susan present y 11-13 Wyano 13:45: [id number] 00 Respiratory dyspnea Respirator Unknown Purnima present y 11-27 Burgess 10:30: [id number] 00 Respiratory CPAP Respirator Unknown Purnima treatments y 4- Burgess in home 10:30: [id number] 00 Nutrition nutritional Nutrition Resolve 2017-05-21 Purnima restriction d 12-04 13:07:00 Burgess s 10:00: [id number] 00 Respiratory dyspnea Respirator Unknown Susan present y 12-11 Wyano 12:15: [id number] 00 Test/Treatm tests Test/Injec Resolve 2017-12-31 Purnima ent ordered t/Rashard d 12-18 11:45:00 Burgess [id number] Respiratory dyspnea Respirator Unknown Susan present y 12-25 Wyano 12:20: [id number] 00 Musculoskel transfer Musculoske Unknown Purnima etal assistance letal 01-01 Burgess required 09:45: [id number] 00 Musculoskel requires Musculoske Unknown Purnima etal human letal 01-01 Burgess assist to 09:45: [id number] leave home 00 Respiratory dyspnea Respirator Unknown Susan present y 01-08 Wyano 11:50: [id number] 00 Respiratory lung sounds Respirator Unknown Susan deficit y 01-15 Wyano 13:00: [id number] 00 Respiratory dyspnea Respirator Unknown Juliana present y 01-29 Wilbert 11:15: [id number] 00 Respiratory dyspnea Respirator Unknown Susan present y 02-19 Wyano 10:38: [id number] 00 Cardio knowledge/s Cardiovasc Resolve 2017-09-30 Juliana kill ular d 03-05 11:00:00 Wilbert deficit: cg 12:13: [id number] 00 Respiratory dyspnea Respirator Unknown Susan present y 03-12 Wyano 10:51: [id number] 00 Musculoskel requires Musculoske Unknown Juliana etal human letal 03-19 Wilbert assist to 11:56: [id number] leave home 00 Respiratory dyspnea Respirator Unknown Juliana present y 03-24 Wilbert 12:05: [id number] 00 Nutrition knowledge/s Nutrition Resolve 2017-05-21 Juliana kill d 03-24 13:07:00 Wilbert deficit: cg 12:05: [id number] 00 Respiratory dyspnea Respirator Unknown Tammee present y 04-02 Amina-Hor 11:38: an 00 Musculoskel requires Musculoske Resolve 2018-12-30 Juliana etal human letal d 04-02 09:56:00 Wilbert assist to 11:38: [id number] leave home 00 Respiratory dyspnea Respirator Unknown Susan present y 9 Wyano 15:15: [id number] 00 Musculoskel transfer Musculoske Resolve 2018-12-30 Juliana etal assistance letal d 04-30 09:56:00 Wilbert required 13:23: [id number] 00 Respiratory dyspnea Respirator Unknown 2016-08 Susan present y 0- Wyano 11:59: [id number] 00 Cardio knowledge/s Cardiovasc Resolve 2016-082017-09-30 [place] [...] clinically d 0-11 11:47:00 [place] significant 11:35: kaiako kura tuarua 00 issue Respiratory dyspnea Respirator Unknown 2016-08 [place] present y 0-18 [place] 13:07: RN 00 Nutrition knowledge/s Nutrition Resolve 2016-082017-05-21 [place] kill d 0-18 13:07:00 [place] deficit: pt 13:07: RN 00 Musculoskel requires Musculoske Resolve 2016-082018-12-30 [place] etal special letal d 0-18 09:56:00 Mal[place] transportat 13:07: RN ion 00 Respiratory dyspnea Respirator Unknown 2016-08 Susan present y 0-25 Wyano 13:00: [id number] 00 Nutrition nutritional Nutrition Resolve 2016-082017-12-17 [place] restriction d 0-26 12:29:00 Mal[place] s 14:20: RN 00 Nutrition knowledge/s Nutrition Resolve 2016-082017-12-17 [place] kill d 0-26 12:29:00 [place] deficit: pt 14:20: RN 00 Elimination urinary Eliminatio Resolve 2016-082017-06-18 [place] incontinenc n d 0- 11:47:00 [place] e 14:20: RN 00 Respiratory dyspnea Respirator Unknown 2016-08 Milagros present y 08-18 Alexandro Roya 12:53: [id number] 00 Respiratory dyspnea Respirator Resolve 2016-082018-01-28 Milagros present y d 09-01 11:42:00 Alexandro Roya 11:34: [id number] 00 Cardio edema Cardiovasc Resolve 2016-082018-12-30 [place] [...] 2017-09-30 Susan incontinenc n d 1- 11:00:00 Wyano e 11:29: [id number] 00 Medication potential Meds Resolve 2018-03-25 [place] clinically d 2-21 11:00:00 [place] significant 09:50: kaiako kura tuar[place] 00 issue Respiratory oxygen Respirator Resolve 2018-01-28 [place] treatments y d 2-27 11:42:00 [place] in home 11:00: RN 00 Respiratory CPAP Respirator Resolve 2018-01-28 Susan treatments y d 3-14 11:42:00 Wyano in home 12:20: [id number] 00 Elimination urinary Eliminatio Resolve 2017-10-22 [place] incontinenc n d 3-21 12:00:00 Mal[place]ke e 12:00: RN 00 Elimination urinary Eliminatio Resolve 2017-12-17 [place] incontinenc n d 4-18 12:29:00 Mal[place] e 10:37: RN 00 Medication oral med Meds Resolve 2018-03-25 Juliana assistance d 11-28 11:00:00 Wilbert required 14:17: [id number] 00 Endo/Marquis anti-coagul Endo/Marquis Resolve 2018-12-30 [place] ation d 12-31 09:56:00 Mal[place] therapy 11:45: RN 00 Nutrition nutritional Nutrition Resolve 2018-06-17 [place] restriction d 12-31 10:01:00 [place] s 11:45: RN 00 Elimination urinary Eliminatio Resolve 2018-01-28 [place] incontinenc n d 12-31 11:42:00 [place] e 11:45: RN 00 Respiratory lung sounds Respirator Resolve 2019-02-10 Tiki deficit y d 01-28 09:00:00 Guidelli 11:42: [id number] 00 OT: Self self-care OT: Active Keshia Care deficit Self-Care 02-12 Jeison 13:00: [id number] 00 OT: Self knowledge/s OT: Active Keshia Care kill Self-Care 02-12 Jeison deficit: pt 13:00: [id number] 00 Respiratory oxygen Respirator Resolve 2019-02-10 Lori treatments y d 02-25 09:00:00 Export-Zos in home 08:32: h [id number] 00 Elimination urinary Eliminatio Resolve 2019-01-13 Lori incontinenc n d 02-25 09:45:00 Yakov-Zos e 08:32: h [id number] 00 Respiratory dyspnea Respirator Resolve 2019-02-10 Juliana present y d 03-25 09:00:00 Denny 11:00: [id number] 00 Medication oral med Meds Resolve 2018-06-17 Lori assistance d 04-22 10:01:00 Yakov-Zos required 10:16: h [id number] 00 Nutrition nutritional Nutrition Resolve 2017-082019-01-13 Lori restriction d 09-15 09:45:00 Export-Zos s 10:25: h [id number] 00 Neuro impaired Neuro/Emot Resolve 2017-082019-07-20 Lori decision-ma ion d 2-20 10:28:00 Yakov-Zos johny 10:55: h [id number] 00 Neuro behavior Neuro/Emot Resolve 2017-082019-07-20 Lori problems ion d 2-20 10:28:00 Export-Zos 10:55: h [id number] 00 Endo/Marquis glucose Endo/Marquis Resolve 2018-12-30 Laura testing d 2- 09:56:00 Violette, dependence 14:40: [id number] 00 Medication oral med Meds Resolve 2018-09-24 Laura assistance d 2- 14:40:00 Violette, required 14:40: [id number] 00 Endo/Marquis anti-coagul Endo/Marquis Resolve 2019-02-10 Juliana [...] 0-30 10:30:00 Stacey e 11:00: [employer] 00 [id number] Respiratory CPAP Respirator Resolve 2018-082019-07-20 [place] treatments [...] 2-26 10:22:00 Stacey e 09:00: [employer] 00 [id number] Musculoskel requires Musculoske Active [place] etal human [...] mg-bioflv-r ose ose tablet,ext. tablet,ext. release release [place] 3 [place] 3 2014-08 No Roth 2400mg Unknown Fish [...] LOPEZ gel gel cyclobenzap cyclobenzap 2014-08 No [place] 1 tab Unknown rine 10 mg rine 10 mg 08-14 ,Can tablet tablet Dinesh Voltaren 1 Voltaren 1 2018- No [place] 4 grams Unknown % topical % topical 12-12 Can LOPEZ gel Dinesh MSM 1,000 MSM 1,000 No [place] 1 tab Unknown mg tablet mg tablet 10-23 Can LOPEZ milk milk 2016- No [place] 2 caps Unknown thistle 175 thistle 175 10-23 Can LOPEZ mg tablet mg tablet Dinesh milk milk No [place] 1 Unknown thistle 350 thistle 350 10-30 Can LOPEZ capusle mg capsule mg capsule Dinesh (350 mg traMADol 50 traMADol 50 2016- No Roth 50-75mg Unknown mg tablet mg tablet 10-30 Jan LOPEZ aspirin 81 aspirin 81 No [place] 1 Unknown mg chewable mg chewable 11-29 Can LOPEZ tablet tablet tablet Dinesh (81 Mg) acetaminoph acetaminoph No [place] 2 Unknown en 500 mg en 500 mg 12-18 Can LOPEZ tablets tablet tablet Dinesh (1000mg ) busPIRone busPIRone 2016- No [place] 1 Unknown 10 mg 10 mg 01-01 Can LOPEZ tablet tablet Dinesh naproxen naproxen 2016- No [place] 1 tab Unknown 500 mg 500 mg 01-08 Can LOPEZ tablet,juan tablet,juan Dinesh yed release yed release busPIRone busPIRone No [place] 1 Unknown 10 mg 10 mg 5 Can LOPEZ tablet tablet Dinesh traMADol 50 traMADol 50 2018- No [place] 50-75mg Unknown mg tablet mg tablet 10-30 Can LOPEZ Vitamin D3 Vitamin D3 2016-08 No [place] 1,000 Unknown 1,000 unit 1,000 unit 0 Can LOPEZ Unit capsule capsule Dinesh levoFLOXaci levoFLOXaci 2017- No [place] 500mg Unknown n 500 mg n 500 mg 09-01 Can LOPEZ tablet tablet Dinesh naproxen naproxen No [place] 1 tab Unknown 500 mg 500 mg 01-08 Can LOPEZ tablet,juan tablet,juan Dinesh yed release yed release ALPRAZolam ALPRAZolam 2014-08 No [place] 1 tab Unknown 0.5 mg 0.5 mg 08-14 MDJan tablet tablet ginkgo ginkgo No [place] Unknown Unknown biloba 60 biloba 60 03-25 [...]
--- OUTSIDE RECORDS SUMMARY | 2019-10-06 10:56 | XMS REPORT | Continuity of Care Document ---
:1945 External Reference #:[id number] Author Name Hawa Vaughan M.D. (transmitted by agent of provider Mary Herrera) Address [address], [place] [address] Care Team Providers Name Role Phone Mendoza Torres MD - Urology Care Team Information Jinriksha Driver [phone] Malachi Wood MD - Orthopaedic Care Team Information Jinriksha Driver [phone] Surgery Suma Craven MD - Orthopaedic Care Team Information Jinriksha Driver Surgery Ashley Calzada MD - Internal Care Team Information Jinriksha Driver [phone] Medicine Problems Active Problems Provider Date Chronic post-traumatic stress disorder Jey Duron M.D.,FACP Onset: Essential hypertension Jan Roth M.D. Onset: 06/17/2014 Diabetes mellitus Jan Roth M.D. Onset: 06/17/2014 Obstructive sleep apnea syndrome Jan Roth M.D. Onset: 06/17/2014 Paroxysmal atrial fibrillation Jan Roth M.D. Onset: 06/17/2014 Backache Jan Roth M.D. Onset: 06/17/2014 Gastroesophageal reflux disease Jan Roth M.D. Onset: 09/16/2014 Morbid obesity Kimmy Perrin MD Onset: 11/29/2014 Mixed incontinence Jan Roth M.D. Onset: 01/17/2015 Note: urinary Localized, primary osteoarthritis Suma Craven MD Onset: 06/28/2015 Obsessive-compulsive disorder Jey Duron M.D.,FACP Onset: 01/17/2016 Late effect of dislocation Suma Craven MD Onset: 02/06/2016 Prosthetic arthroplasty of shoulder Suma Craven MD Onset: 02/06/2016 Osteoarthritis of first Jaquan Myers MD Onset: 04/23/2016 carpometacarpal joint, unspecified Localized, primary osteoarthritis of Jaquan Myers MD Onset: 06/07/2016 the hand Shoulder joint pain Suma Craven MD Onset: 08/12/2017 Hypersomnia Maria Teresa Dominguez DNP, RN, Onset: 08/19/2017 [employer]PL[employer]-BC Mixed urinary incontinence Ashley Calzada M.D. Onset: 03/25/2018 Kidney stone Ashley Calzada M.D. Onset: 03/25/2018 Note: L kidney , non obstructive per patient Social History Type Date Description Comments Sex Unknown ETOH Use Drinks Alcoholic Beverages Rarely Tobacco Use Start: Unknown End: Patient is a former 1 PPD x 4-5 years. Unknown smoker Quit in 1975 Recreational Drug Use Denies Drug Use Smoking Status Reviewed: 09/09/19 Patient is a former 1 PPD x 4-5 years. smoker Quit in 1975 Exercise Type/Frequency Does not exercise Allergies, Adverse Reactions, Alerts Active Allergies Reaction Severity Comments Date Tape 06/17/2014 Contrast Dye 06/17/2014 Environmental Allergies 06/17/2014 Lyrica 01/17/2015 Medications Active Medications SIG Qnty Indications Ordering Provider Date Omeprazole 1 by mouth 30caps K21.9 Hawa Vaughan, 09/09/2019 20mg every day M.D. Capsules DR Wheelchair Repair dx:e66.01; 1units E66.01 Jennifer Braga MD 07/29/2019 m17.9; M17.9 I89.0 Mupirocin apply a thin layer on 22gm I89.0 Ashley Calzada, 07/15/2019 2% Ointment the skin of affected M.D. area twice a day for 5 days Bedpan 1units Lakshmi Magaña MD 06/18/[address] [facility] Commode Bedside drop arm bedside 1units R32 Jennifer Braga MD 06/18/[address] [facility] commode, bariatric commode N39.42 E66.01 OT/PT Wheelchair Ashley Calzada, 05/20/2019 Mobility Evaluation M.Jose Miguel. Nystop apply to affected 180gm Ashley Calzada, 02/02/2019 252425Ofof/GM area twice a day M.D. Powder for 10 days as needed Metoprolol Succinate 1 tab by mouth 90tabs Silverio Jiménez 01/19/2019 ER every day ( Pt has Cindy Azevedo 25mg Tablets ER 24HR 50 mg tabs. PS 02/22/2019) Fluticasone Every Day Unknown 01/14/2019 Propionate 50mcg/Act Suspension Metformin HCL take one tablet by 180tabs E11.40 Irma Balbuena MD 12/09/2018 1000mg mouth twice a day Tablets Fish Oil 1 tablets by mouth Unknown 09/24/2018 1200mg every day Capsules Freestyle Lancets test once a day 100units Ashley Calzada, 08/19/2018 Misc prior to breakfast M.D. e11.9 Blood Pressure as needed 1units Ashley Calzada, 06/03/2018 Monitor M.D. Deluxe/Wrist/Automati c Device Bath/Shower Seat With use daily as 1units G56.03 DANNIELLE Butler 2017 Back/Adjustable directed 99: [facility] lifetime use heavy duty bench E66.01 Z96.611 Latex Extra Large use daily as needed Carlos Langford, 09/26/2017 Gloves M.DJacinda Vitamin D High Potency 1 tab daily Other Ordering 05/21/2017 Provider 1000Unit Capsules Naproxen take 1 tablet by 60tabs Bere Garay, 01/10/2017 500mg Tablets mouth two times N.P. daily as needed for pain Aspirin 1 by mouth every 90tabs Sahil Loera NP 06/20/[address] day Cyclobenzaprine HCL take 1 tablet by 30tabs Ashley Calzada, 12/20/2015 10mg mouth three times M.D. Tablets daily as needed Amoxicillin take 4 tablets by 12caps Ashley Calzada, 10/02/2015 500mg Capsules mouth, 60 minutes M.D. before procedure Fluoxetine HCL Take 1 Capsule By 90caps F33.9 Ashley Calzada, 08/14/2015 20mg Mouth Every Day M.D. Capsules Freestyle Lite Blood check fingerstick 1units E11.9 Jey Elise 2014 Glucose Monitoring daily e11.9 05/07/17 Cindy Duron,FACP System Device Vitamin C 3 tabs by mouth 90tabs Jan Roth, 07/05/2015 1000mg Tablets every day M.D. Freestyle Lite Test Test twice a day 100units E11.40 Ashley Calzada, 04/25 Strip LillianaDJacinda Wrist Brace left wrist brace, 1units Jey Elise 03/28/2015 size XL Cnidy Duron,FACP Lift Chair lift chair, dx Jan Roth, 02/06/2015 722.90 M.D. Rolling Tray Rolling tray to fit Jan Roth, 02/06/2015 1 over her M.D. wheelchair/scooter Dx 722.[address] 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 night with Cpap Quinapril HCL take 1 tablet by 90tabs Ashley Calzada, 08/25/2014 20mg mouth every day M.D. Tablets Disposable Underpads use as needed diag 180units N39.46 Peck Primitivo, 07/13/2014 Super Size 30"X36" 788.30 M.D. 30"X36" [facility] N39.3 Restasis instill 1 drop in 60units Ashley Calzada, 06/17/2014 0.05% Emulsion each eye two M.D. times daily Buspirone HCL Take 1 Tablet By 120tabs F41.1 Ashley Calzada, 06/17/2014 10mg Tablets Mouth Four Times M.D. Daily For Anxiety Gabapentin take 1 tablet by 90tabs Ashley Calzada, 06/17/2014 600mg Tablets mouth three times M.D. daily Alprazolam 1 by mouth daily 14tabs Lakshmi Magaña, 06/17/2014 0.5mg Tablets as needed MD Bishop 1 drop in each 2.500ml H04.123 Ashley Calzada, 06/17/2014 0.2% Solution eye once daily as M.D. needed Glucosamine 3 tabs by mouth Unknown 500mg Capsules daily MSM Take 2 gm mixed Unknown Powder well with fluid of choice daily. Milk Thistle Extract 2 tabs daily 60tabs Unknown 175mg 30days on and Tablets 30days off Magnesium Oxide -MG 4 caps daily 120caps Unknown Supplement 400mg Capsules Ginkgo Biloba 1 by mouth daily Unknown 30mg Capsules Acetaminophen 2 every 4 hours Unknown 325mg Tablets as needed for pain History Medications Contrave 1 tab PO daily 7tabs E66.01 Ashley Calzada, 06/16/2019 - 8-90mg for a week M.D. 09/09/2019 Tablets ER 12HR Repair To Current Dx: g56.03 1units E66.01 Ashley Calzada, 05/19/2019 - Wheelchair ;e66.01;m18 M.D. 07/29/2019 M18.0 M17.9 Medications Administered in Office Medication SIG Qnty Indications Ordering Provider Date Celestone 3 mg and 3mg Jaquan Myers MD 06/07/2016 Injection Triamcinolone (Kenalog) Suma Craven MD 06/28/2015 Injection Triamcinolone (Kenalog) Suma Craven MD 06/28/2015 Injection Immunizations CPT Code Status Date Vaccine Lot # [id number] Given 04/02/2017 Tetanus And Diptheria (Td) For Adult Use [id number] Preservative Free 71373 Given 06/20/2016 Pneumonia Vaccine [id number] Given 09/16/2014 Pneumococcal Conjugate Vaccine 13 Valent For [id number] Intramuscular Use [id number] Refused 06/03/2018 Influenza Virus Vaccine, Quadrivalent, Split, Preservative Free Vital Signs Date Vital Result Comment 09/09/2019 3:45pm Height 65.5 inches 5'5.50" pt unable to stand Weight 378.00 lb Heart Rate 107 /min BP Systolic 137 mmHg BP Diastolic 83 mmHg O2 % BldC Oximetry 96 % BMI (Body Mass Index) 61.9 kg/m2 07/15/2019 11:14am Height 65.5 inches 5'5.50" pt unable to stand Weight 375.00 lb Heart Rate 91 /min BP Systolic Sitting 127 mmHg BP Diastolic Sitting 90 mmHg Pain Level 2 O2 % BldC Oximetry 96 % BMI (Body Mass Index) 61.4 kg/m2 Results Test Acquired Date Facility Test Result H/L Range Note Order 09/09/2019 [facility]ard <pending> [address] [place] [address] [phone] Urine 07/16/2019 [facility] Ur Microalbumin < 15.[address] (mg/L) mg/[place] [address] [phone] Urine Creatinine 17.10 mg/dL Urine Microalbumin/Creatinine TNP <31 1 Laboratory test 06/09/2019 [facility] Hemoglobin A1c 6.2 5-7 finding Laboratory test 04/30/2019 [facility] B-Type 49 pg/mL <=[address] [place] [address] Peptide BNP [phone] CBC Auto Diff 04/30/2019 [facility] White Blood Count 6.3 Normal 3.5-10.[address] 10^3/uL [place], [place] [id number] [phone] Red Blood Count 4.33 10^6/uL Normal 3.70-4.87 Hemoglobin 13.1 g/dL Normal 12.0-16.0 Hematocrit 39 % Normal 35-47 Mean Corpuscular Volume 91 fL Normal 80-97 Mean Corpuscular Hemoglobin 30 pg Normal 27-31 Mean Corpuscular HGB Conc 33 g/dL Normal 31-36 Red Cell Distribution Width 16 % High 10-15 Platelet Count 271 10^3/uL Normal 150-450 Mean Platelet Volume 8.5 fL Normal 7.4-10.4 Abs Neutrophils 3.7 10^3/uL Normal 1.5-7.7 Abs Lymphocytes 1.8 10^3/uL Normal 1.0-4.8 Abs Monocytes 0.5 10^3/uL Normal 0-0.8 Abs Eosinophils 0.3 10^3/uL Normal 0-0.6 Abs Basophils 0.1 10^3/uL Normal 0-0.2 Abs Nucleated RBC 0.0 10^3/uL Granulocyte % 58.7 % Lymphocyte % 28.3 % Monocyte % 7.6 % Eosinophil % 4.3 % Basophil % 1.1 % Nucleated Red Blood Cells % 0.2 Comp Metabolic 04/30/2019 [facility] Sodium 139 mmol/L Normal 135-[address] [place] [address] [phone] Potassium 4.3 mmol/L Normal 3.5-5.0 Chloride 103 mmol/L Normal 101-111 Co2 Carbon Dioxide 28 mmol/L Normal 22-32 Anion Gap 8 mmol/L Normal 2-11 Glucose 124 mg/dL High 70-100 Blood Urea Nitrogen 18 mg/dL Normal 6-24 Creatinine 0.59 mg/dL Normal 0.51-0.95 BUN/Creatinine Ratio 30.5 High 8-20 Calcium 10.3 mg/dL Normal 8.6-10.3 Total Protein 6.8 g/dL Normal 6.4-8.9 Albumin 4.3 g/dL Normal 3.2-5.2 Globulin 2.5 g/dL Normal 2-4 Albumin/Globulin Ratio 1.7 Normal 1-3 Total Bilirubin 0.20 mg/dL Normal 0.2-1.0 Alkaline Phosphatase 64 U/L Normal 34-104 Alt 49 U/L Normal 7-52 Ast 36 U/L Normal 13-39 Egfr Non- 100.2 >60 Egfr 121.2 >60 2 Urine Culture And 04/29/2019 [facility] Urine Culture SEE RESULT [address] [place] [address] [phone] 1 Unable to calculate due to low microalbumin 2 Because ethnic data is not always readily available, this report includes an eGFR for both -Americans and non- Americans. The National Kidney Disease Education Program (NKDEP) does not endorse the use of the MDRD equation for patients that are not between the ages of 18 and 70, are , have extremes of body size, muscle mass, or nutritional status, or are non- or non-. According to the National Kidney Foundation, irrespective of diagnosis, the stage of the disease is based on the level of kidney function: Stage Description GFR(mL/min/1.73 m(2)) 1 Kidney damage with normal or decreased GFR 90 2 Kidney damage with mild decrease in GFR 60-89 3 Moderate decrease in GFR 30-59 4 Severe decrease in GFR 15-29 5 Kidney failure <15 (or dialysis) 3 SEE RESULT BELOW Name: JOSEFA LEBRON : [address]: Irma Balbuena MD Acct: [id number] Unit: [id number] AGE: 74 Location: [facility] Re04/29/19 SEX: F Status: REG REF SPEC: [id number] CHANTELLE: 04/29/19-[address]: Irma Balbuena MD REQ: [id number] RECD: 04/30/19 STATUS: COMP _ SOURCE: URINE SPDESC: ORDERED: Urine Culture Urine Source: Random Procedure Result Reported Site Urine Culture Final 05/01/19- 1224 ML No Growth (<1,000 CFU/mL) * ML - Main Lab . END OF REPORT DEPARTMENT OF PATHOLOGY, [address] [place] [address] Misael Schaefer M.D. Director [facility] # [id number] Procedures Date Code Description Status 02/03/2019 [id number] Mammogram Completed 06/17/2018 [id number] Diabetic Retinal Eye Exam Completed 02/01/2013 [id number] Colonoscopy Completed 08/04/2004 [id number] Mammogram Completed Medical Devices Description No Information Available Encounters Type Date Location Provider Dx Diagnosis Office Visit 06/09/2019 [facility] Internal Ashley Elsi, E11.40 Type 2 diabetes 2:00p Medicine - [facility] Cindy mellitus with diabetic neuropathy, unsp E66.01 Morbid (severe) obesity due to excess calories Z68.44 Body mass index (BMI) 60.0-69.9, adult Office Visit 04/26/2019 3:00p [facility] Kacy S. I48.0 Paroxysmal atrial Foster, N.P. fibrillation E66.01 Morbid (severe) obesity due to excess calories R06.00 Dyspnea, unspecified I10 Essential (primary) hypertension Z68.44 Body mass index (BMI) 60.0-69.9, adult Assessments Date Code Description Provider 09/09/2019 E11.40 Type 2 diabetes mellitus with diabetic Hawa Vaughan M.D. neuropathy, unspecified 09/09/2019 M17.0 Bilateral primary osteoarthritis of knee Hawa Vaughan M.D. 09/09/2019 L98.9 Disorder of the skin and subcutaneous Hawa Vaughan M.D. tissue, unspecified 09/09/2019 Z12.11 Encounter for screening for malignant Hawa Vaughan M.D. neoplasm of colon 07/15/2019 E66.01 Morbid (severe) obesity due to excess Ashley Calzada M.D. calories 07/15/2019 I89.0 Lymphedema, not elsewhere classified Ashley Calzada M.D. 07/15/2019 E11.40 Type 2 diabetes mellitus with diabetic Ashley Calzada M.D. neuropathy, unspecified 07/15/2019 Z68.44 Body mass index (BMI) 60.0-69.9, adult Ashley Calzada M.D. 06/09/2019 E11.40 Type 2 diabetes mellitus with diabetic Ashley Calzada M.D. neuropathy, unspecified 06/09/2019 E66.01 Morbid (severe) obesity due to excess Ashley Calzada M.D. calories 06/09/2019 Z68.44 Body mass index (BMI) 60.0-69.9, adult Ashley Calzada M.D. 05/05/2019 Z00.00 Encounter for general adult medical DANNIELLE Butler examination without abnormal findings 05/05/2019 E11.40 Type 2 diabetes mellitus with diabetic DANNIELLE Butler neuropathy, unspecified 05/05/2019 Z12.11 Encounter for screening for malignant DANNIELLE Butler neoplasm of colon 05/05/2019 Z68.44 Body mass index (BMI) 60.0-69.9, adult DANNIELLE Butler 04/26/2019 I48.0 Paroxysmal atrial fibrillation Kacy Oliver, N.P. 04/26/2019 E66.01 Morbid (severe) obesity due to excess Kacy Oliver, N.P. calories 04/26/2019 R06.00 Dyspnea, unspecified Kacy Oliver, N.P. 04/26/2019 I10 Essential (primary) hypertension Kacy Oliver, N.P. 04/26/2019 Z68.44 Body mass index (BMI) 60.0-69.9, adult Kacy Oliver, N.P. Plan of Treatment 07/15/2019 - Ashley Calzada M.D.E66.01 Morbid (severe) obesity due to excess caloriesNew Therapy:Physical TherapyComments:good job on loosing weight !I89.0 Lymphedema, not elsewhere classifiedNew Medication:Mupirocin 2 % - apply a thin layer on the skin of affected area twice a day for 5 daysE11.40 Type 2 diabetes mellitus with diabetic neuropathy, unspecifiedFollow up:sep 2019 with meZ68.44 Body mass index (BMI) 60.0-69.9, adult Functional Status Description No Information Available Mental Status Description No Information Available Referrals Refer to Dr Reason for Referral Status Appt Date [facility] D[facility]at[facility] Created [address] [place] [phone]
--- OUTSIDE RECORDS SUMMARY | 2019-10-06 10:56 | XMS REPORT ---
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 [place] (current) (current) [place] use of use of RN aspirin aspirin Respiratory treatments Respirator Resolve 2014-082016-09-25 Carmelita ordered y d 1-11 11:45:00 Dale [id number] Safety knowledge/s Safety Resolve 2016-02-08 Kayleigh kill d 09-15 15:04:00 Sinnigen deficit: pt 15:30: [id number] Diagnoses knowledge/s Diagnoses Active Tammee kill 09-15 [place] deficit: pt 15:30: an 00 Pain frequent Pain Mgmt Resolve 2018-10-21 Carmelita pain d 10-10 11:00:00 Dale 14:30: [id number] 00 Pain knowledge/s Pain Mgmt Resolve 2015-10-11 Carmelita kill d 10-10 14:30:00 Dale deficit: cg 14:30: [id number] 00 Cardio hypertensio Cardiovasc Resolve 2016-09-25 Carmelita n ular d 10-10 11:45:00 Dale 14:30: [id number] 00 Cardio knowledge/s Cardiovasc Resolve 2016-09-25 Carmelita kill ular d 10-10 11:45:00 Dale deficit: cg 14:30: [id number] 00 Respiratory dyspnea Respirator Resolve 2017-06-18 Carmelita present y d 10-10 11:47:00 Dale 14:30: [id number] 00 Respiratory oxygen Respirator Resolve 2017-06-18 Carmelita treatments y d 10-10 11:47:00 Dale in home 14:30: [id number] 00 Respiratory lung sounds Respirator Resolve 2016-05-01 Carmelita deficit y d 10-10 14:30:00 Dale 14:30: [id number] 00 Respiratory CPAP Respirator Resolve 2017-06-18 Carmelita treatments y d 10-10 11:47:00 Dale in home 14:30: [id number] 00 Respiratory knowledge/s Respirator Resolve 2015-10-11 Carmelita kill y d 10-10 14:30:00 Dale deficit: cg 14:30: [id number] 00 Nutrition knowledge/s Nutrition Resolve 2015-10-11 Carmelita kill d 10-10 14:30:00 Dale deficit: cg 14:30: [id number] 00 Neuro anxiety Neuro/Emot Resolve 2016-02-08 Carmelita present ion d 10-10 15:04:00 Dale 14:30: [id number] 00 Neuro depressive Neuro/Emot Resolve 2016-02-08 Carmelita feelings ion d 10-10 15:04:00 Dale present 14:30: [id number] 00 Neuro knowledge/s Neuro/Emot Resolve 2016-02-08 Carmelita kill ion d 10-10 15:04:00 Dale deficit: pt 14:30: [id number] 00 Neuro knowledge/s Neuro/Emot Resolve 2016-02-08 Carmelita kill ion d 10-10 15:04:00 Dale deficit: cg 14:30: [id number] 00 Activity knowledge/s Activity Resolve 2015-10-11 Carmelita kill d 10-10 14:30:00 Dale deficit: cg 14:30: [id number] 00 Safety safety Safety Resolve 2015-10-11 Carmelita hazards d 10-10 14:30:00 Dale present 14:30: [id number] 00 Safety fall risk Safety Resolve 2015-10-11 Carmelita factor d 10-10 14:30:00 Dale present 14:30: [id number] 00 Safety risk for Safety Resolve 2015-10-11 Carmelita hospitaliza d 10-10 14:30:00 Dale tion 14:30: [id number] 00 Diagnoses knowledge/s Diagnoses Active Carmelita kill 10-10 Dale deficit: cg 14:30: [id number] 00 Musculoskel knowledge/s Musculoske Resolve 2015-10-11 Carmelita etal kill letal d 10-10 14:30:00 Dale deficit: cg 14:30: [id number] 00 Nutrition knowledge/s Nutrition Resolve 2016-09-25 Kayleigh kill d 10-12 11:45:00 [place]igen deficit: cg 15:30: [id number] 00 Safety safety Safety Active Kayleigh hazards - Sinnigen present 15:30: [id number] 00 Safety fall risk Safety Active Kayleigh factor - Sinnigen present 15:30: [id number] 00 Safety risk for Safety Active Kayleigh hospitaliza - Sinnigen tion 15:30: [id number] 00 Cardio edema Cardiovasc Resolve 2016-09-25 Carmelita ular d 3-18 11:45:00 Dale 15:30: [id number] 00 Pain frequent Pain Mgmt Unknown Moon pain 12-05 Danilo 16:31: [id number] 00 Pain knowledge/s Pain Mgmt Resolve 2016-02-08 Moon kill d 12-05 15:04:00 Danilo deficit: cg 16:31: [id number] 00 Cardio knowledge/s Cardiovasc Unknown Moon kill ular 12-05 Danilo deficit: cg 16:31: [id number] 00 Respiratory knowledge/s Respirator Resolve 2015-12-06 Moon kill y d 12-05 16:31:00 Danilo deficit: cg 16:31: [id number] 00 Integument skin Integument Resolve 2016-02-08 Moon integrity d 12-05 15:04:00 Danilo risk 16:31: [id number] 00 Elimination urinary Eliminatio Resolve 2016-02-08 Moon incontinenc n d 12-05 15:04:00 Danilo e 16:31: [id number] 00 Activity knowledge/s Activity Resolve 2016-02-08 Moon kill d 12-05 15:04:00 Danilo deficit: cg 16:31: [id number] 00 Respiratory knowledge/s Respirator Resolve 2016-02-08 Moon kill y d 12-20 15:04:00 Danilo deficit: cg 15:49: [id number] 00 Respiratory knowledge/s Respirator Unknown 2016-02-08 Kayleigh kill y 01-10 15:04:00 S[place]igen deficit: pt 15:30: [id number] 00 Medication injectable Meds Resolve 2016-02-08 Moon med d 02-07 15:04:00 Danilo assistance 15:04: [id number] required 00 Cardio hypertensio Cardiovasc Unknown Moon n ular 02-22 Danilo 09:45: [id number] 00 Elimination urinary Eliminatio Resolve 2016-02-23 Moon incontinenc n d 02-22 09:45:00 Danilo aggarwal 09:45: [id number] 00 Elimination ostomy Eliminatio Resolve 2016-04-17 Moon present n d 02-22 11:53:00 Danilo 09:45: [id number] 00 Elimination urinary Eliminatio Resolve 2016-04-17 Susan incontinenc n d 03-20 11:53:00 [place] e 10:03: [id number] 00 Neuro anxiety Neuro/Emot Resolve 2016-08-21 Moon present ion d 04-05 12:10:00 Danilo 15:49: [id number] 00 Neuro depressive Neuro/Emot Resolve 2016-08-21 Moon feelings ion d 04-05 12:10:00 Danilo present 15:49: [id number] 00 Neuro knowledge/s Neuro/Emot Resolve 2016-08-21 Moon kill ion d 04-05 12:10:00 Danilo deficit: pt 15:49: [id number] 00 Neuro knowledge/s Neuro/Emot Resolve 2016-08-21 Moon kill ion d 04-05 12:10:00 Danilo deficit: cg 15:49: [id number] 00 Activity ADL Activity Resolve 2016-06-19 Moon assistance d 04-05 11:30:00 Danilo required 15:49: [id number] 00 Activity knowledge/s Activity Resolve 2016-05-01 Moon kill d 04-05 14:30:00 Danilo deficit: cg 15:49: [id number] 00 Elimination urinary Eliminatio Resolve 2016-05-01 Susan incontinenc n d 04-24 14:30:00 [place] e 15:00: [id number] 00 Elimination urinary Eliminatio Resolve 2016-05-01 Susan frequency n d 04-24 14:30:00 [place] 15:00: [id number] 00 Respiratory lung sounds Respirator Unknown 2015-08 Susan deficit y 0-05 [place] 14:00: [id number] 00 Elimination urinary Eliminatio Resolve 2015-082016-05-15 Moon incontinenc n d 14:11:00 Danilo aggarwal 14:11: [id number] 00 Elimination urinary Eliminatio Resolve 2015-082016-05-29 Moon incontinenc n d 13:42:00 Danilo aggarwal 13:42: [id number] 00 Respiratory lung sounds Respirator Resolve 2015-082016-07-03 Susan deficit y d 08-05 14:12:00 [place] 12:38: [id number] 00 Respiratory CPAP Respirator Unknown 2015-08 Moon treatments y 08-06 [place] in home 14:31: [id number] 00 Respiratory dyspnea Respirator Unknown 2015-08 Moon present y 08-06 [place] 14:31: [id number] 00 Elimination urinary Eliminatio Resolve 2015-082016-06-06 Moon incontinenc n d 08-06 14:31:00 [place] e 14:31: [id number] 00 Integument skin Integument Active 2015-08 Moon integrity 09-02 [place] risk 14:12: [id number] 00 Elimination urinary Eliminatio Resolve 2015-082016-07-03 Moon incontinenc n d 09-02 14:12:00 Danilo e 14:12: [id number] 00 Elimination urinary Eliminatio Resolve 2015-082016-08-09 Moon incontinenc n d -14 10:32:00 Danilo aggarwal 12:00: [id number] 00 Respiratory lung sounds Respirator Resolve 2015-082016-08-21 Moon deficit y d 10-01 12:10:00 Danilo 10:43: [id number] 00 Cardio edema Cardiovasc Unknown Moon ular 08-09 Danilo 10:32: [id number] 00 Respiratory dyspnea Respirator Unknown Moon present y 08-09 Danilo 10:32: [id number] 00 Activity ADL Activity Resolve 2016-08-21 Moon assistance d 08-09 12:10:00 Danilo required 10:32: [id number] 00 Musculoskel transfer Musculoske Resolve 2016-09-25 Moon etal assistance letal d 08-09 11:45:00 Danilo required 10:32: [id number] 00 Musculoskel knowledge/s Musculoske Resolve 2016-09-25 Moon etal kill letal d 08-09 11:45:00 Danilo deficit: cg 10:32: [id number] 00 Nutrition nutritional Nutrition Resolve 2016-11-20 Moon restriction d 08-21 09:45:00 Danilo kirby 12:10: [id number] 00 Neuro depressive Neuro/Emot Resolve 2019-02-10 Moon feelings ion d 09-11 09:00:00 Danilo present 13:00: [id number] 00 Neuro anxiety Neuro/Emot Resolve 2019-02-10 Moon present ion d 09-11 09:00:00 Danilo 13:00: [id number] 00 Cardio edema Cardiovasc Resolve 2017-06-18 Moon ular d 10-07 11:47:00 Danilo 13:05: [id number] 00 Respiratory dyspnea Respirator Unknown Omon present y 10-07 Danilo 13:05: [id number] 00 Activity ADL Activity Resolve 2017-06-18 Moon assistance d 10-07 11:47:00 Danilo required 13:05: [id number] 00 Musculoskel transfer Musculoske Resolve 2016-10-23 Moon etal assistance letal d 10-07 11:30:00 Danilo required 13:05: [id number] 00 Respiratory treatments Respirator Resolve 2017-10-22 Susan ordered y d 10-30 12:00:00 [place] 11:00: [id number] 00 Nutrition knowledge/s Nutrition Resolve 2016-11-20 Susan kill d 10-30 09:45:00 [place] deficit: cg 11:00: [id number] 00 Respiratory dyspnea Respirator Unknown Susan present y 10-31 [place] 11:30: [id number] 00 Respiratory dyspnea Respirator Unknown Susan present y 11-13 [place] 13:45: [id number] 00 Respiratory dyspnea Respirator Unknown Purnima present y 11-27 [place] 10:30: [id number] 00 Respiratory CPAP Respirator Unknown Purnima treatments y 4- [place] in home 10:30: [id number] 00 Nutrition nutritional Nutrition Resolve 2017-05-21 Purnima restriction d 12-04 13:07:00 [place] s 10:00: [id number] 00 Respiratory dyspnea Respirator Unknown Susan present y 12-11 [place] 12:15: [id number] 00 Test/Treatm tests Test/Injec Resolve 2017-12-31 Purnima ent ordered t/Rashard d 12-18 11:45:00 [place] [id number] Respiratory dyspnea Respirator Unknown Susan present y 12-25 [place] 12:20: [id number] 00 Musculoskel transfer Musculoske Unknown Purnima etal assistance letal 01-01 [place] required 09:45: [id number] 00 Musculoskel requires Musculoske Unknown Purnima etal human letal 01-01 [place] assist to 09:45: [id number] leave home 00 Respiratory dyspnea Respirator Unknown Susan present y 01-08 [place] 11:50: [id number] 00 Respiratory lung sounds Respirator Unknown Susan deficit y 01-15 [place] 13:00: [id number] 00 Respiratory dyspnea Respirator Unknown Juliana present y 01-29 Wilbert 11:15: [id number] 00 Respiratory dyspnea Respirator Unknown Susan present y 02-19 [place] 10:38: [id number] 00 Cardio knowledge/s Cardiovasc Resolve 2017-09-30 Juliana kill ular d 03-05 11:00:00 Wilbert deficit: cg 12:13: [id number] 00 Respiratory dyspnea Respirator Unknown Susan present y 03-12 [place] 10:51: [id number] 00 Musculoskel requires Musculoske Unknown Juliana etal human letal 03-19 Wilbert assist to 11:56: [id number] leave home 00 Respiratory dyspnea Respirator Unknown Juliana present y 03-24 Wilbert 12:05: [id number] 00 Nutrition knowledge/s Nutrition Resolve 2017-05-21 Juliana kill d 03-24 13:07:00 Wilbert deficit: cg 12:05: [id number] 00 Respiratory dyspnea Respirator Unknown Tammee present y 04-02 Amina-Hor 11:38: an 00 Musculoskel requires Musculoske Resolve 2018-12-30 Juliana etal human letal d 04-02 09:56:00 Wilbert assist to 11:38: [id number] leave home 00 Respiratory dyspnea Respirator Unknown Susan present y 9 [place] 15:15: [id number] 00 Musculoskel transfer Musculoske Resolve 2018-12-30 Juliana etal assistance letal d 04-30 09:56:00 Wilbert required 13:23: [id number] 00 Respiratory dyspnea Respirator Unknown 2016-08 Susan present y 0- [place] 11:59: [id number] 00 Cardio knowledge/s Cardiovasc Resolve 2016-082017-09-30 [place] [...] clinically d 0-11 11:47:00 [place] 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 Respiratory dyspnea Respirator Unknown 2016-08 [place] present y 0-18 [place] 13:07: RN 00 Nutrition knowledge/s Nutrition Resolve 2016-082017-05-21 [place] kill d 0-18 13:07:00 [place] deficit: pt 13:07: RN 00 Musculoskel requires Musculoske Resolve 2016-082018-12-30 [place] etal special letal d 0-18 09:56:00 [place] transportat 13:07: RN ion 00 Respiratory dyspnea Respirator Unknown 2016-08 Susan present y 0-25 [place] 13:00: [id number] 00 Nutrition nutritional Nutrition Resolve 2016-082017-12-17 [place] restriction d 0-26 12:29:00 [place] s 14:20: RN 00 Nutrition knowledge/s Nutrition Resolve 2016-082017-12-17 [place] kill d 0-26 12:29:00 [place] deficit: pt 14:20: RN 00 Elimination urinary Eliminatio Resolve 2016-082017-06-18 [place] incontinenc n d 0- 11:47:00 [place] e 14:20: RN 00 Respiratory dyspnea Respirator Unknown 2016-08 Milagros present y 08-18 Alexandro Roya 12:53: [id number] 00 Respiratory dyspnea Respirator Resolve 2016-082018-01-28 Milagros present y d 09-01 11:42:00 Alexandro Roya 11:34: [id number] 00 Cardio edema Cardiovasc Resolve 2016-082018-12-30 [place] ular d 2-13 09:56:00 [place] 10:40: RN [...] 2017-09-30 Susan incontinenc n d 1- 11:00:00 [place] e 11:29: [id number] 00 Medication potential Meds Resolve 2018-03-25 [place] clinically d 2-21 11:00:00 [place] significant 09:50: 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 Respiratory oxygen Respirator Resolve 2018-01-28 [place] treatments y d 2-27 11:42:00 [place] in home 11:00: RN 00 Respiratory CPAP Respirator Resolve 2018-01-28 Susan treatments y d 3-14 11:42:00 [place] in home 12:20: [id number] 00 Elimination urinary Eliminatio Resolve 2017-10-22 [place] incontinenc n d 3-21 12:00:00 [place] e 12:00: RN 00 Elimination urinary Eliminatio Resolve 2017-12-17 [place] incontinenc n d 4-18 12:29:00 [place] e 10:37: RN 00 Medication oral med Meds Resolve 2018-03-25 Juliana assistance d 11-28 11:00:00 Wilbert required 14:17: [id number] 00 Endo/Marquis anti-coagul Endo/Marquis Resolve 2018-12-30 [place] ation d 12-31 09:56:00 [place] therapy 11:45: RN 00 Nutrition nutritional Nutrition Resolve 2018-06-17 [place] restriction d 12-31 10:01:00 [place] s 11:45: RN 00 Elimination urinary Eliminatio Resolve 2018-01-28 [place] incontinenc n d 12-31 11:42:00 [place] e 11:45: RN 00 Respiratory lung sounds Respirator Resolve 2019-02-10 Tiki deficit y d 01-28 09:00:00 [place] 11:42: [id number] 00 OT: Self self-care OT: Active Keshia Care deficit Self-Care 02-12 Jeison 13:00: [id number] 00 OT: Self knowledge/s OT: Active Keshia Care kill Self-Care 02-12 Jeison deficit: pt 13:00: [id number] 00 Respiratory oxygen Respirator Resolve 2019-02-10 Lori treatments y d 02-25 09:00:00 [place] in home 08:32: h [id number] 00 Elimination urinary Eliminatio Resolve 2019-01-13 Lori incontinenc n d 02-25 09:45:00 Yakov-Zos e 08:32: h [id number] 00 Respiratory dyspnea Respirator Resolve 2019-02-10 Juliana present y d 03-25 09:00:00 Denny 11:00: [id number] 00 Medication oral med Meds Resolve 2018-06-17 Lori assistance d 04-22 10:01:00 Yakov-Zos required 10:16: h [id number] 00 Nutrition nutritional Nutrition Resolve 2017-082019-01-13 Lori restriction d 09-15 09:45:00 [place] s 10:25: h [id number] 00 Neuro impaired Neuro/Emot Resolve 2017-082019-07-20 Lori decision-ma ion d 2-20 10:28:00 Yakov-Zos johny 10:55: h [id number] 00 Neuro behavior Neuro/Emot Resolve 2017-082019-07-20 Lori problems ion d 2-20 10:28:00 [place] 10:55: h [id number] 00 Endo/Marquis glucose Endo/Marquis Resolve 2018-12-30 Laura testing d 2- 09:56:00 Violette, dependence 14:40: [id number] 00 Medication oral med Meds Resolve 2018-09-24 Laura assistance d 2- 14:40:00 Violette, required 14:40: [id number] 00 Endo/Marquis anti-coagul Endo/Marquis Resolve 2019-02-10 Juliana [...] 0-30 10:30:00 Stacey e 11:00: [employer] 00 [id number] Respiratory CPAP Respirator Resolve 2018-082019-07-20 [place] treatments [...] 2-26 10:22:00 Stacey e 09:00: [employer] 00 [id number] Musculoskel requires Musculoske Active [place] etal human letal 08-11 [place] assist to 10:22: RN leave home 00 Musculoskel requires Musculoske Active 0 [place] etal special letal 08-11 [place] transportat 10:22: RN ion 00 Allergies, Adverse Reactions, Alerts Allergy Allergy [...] drops 08-14 Jan LOPEZ ALPRAZolam ALPRAZolam 2014-08 Roth 1 tab Unknown 0.5 mg 0.5 [...] 08-14 Jan LOPEZ tablet tablet cyclobenzap cyclobenzap 2014-08 No Roth 1 tab Unknown rine 10 mg rine 10 mg 08-14 Jan LOPEZ tablet tablet gabapentin gabapentin 2014-08 No Roth 1-2 Unknown 600 mg 600 mg 09-07 Jan LOPEZ tabs tablet tablet naproxen naproxen 2014-08 No Roth 1 tab Unknown 500 mg 500 mg 09-07 Jan LOPEZ tablet tablet vit C 1,000 vit C 1,000 2014-08 No Roth 3000mg Unknown mg-rutin 50 mg-rutin 50 09-07 Jan LOPEZ-hesper mg-hesper 50 50 mg-bioflv-r mg-bioflv-r ose ose tablet,ext. tablet,ext. release release Gonzales 3 Gonzales 3 2014-08 No Roth 2400mg Unknown Fish [...] Roth 1000mg Unknown 500 mg 500 mg - Jan LOPEZ tablet tablet metFORMIN metFORMIN 2014-08 No [place] 1 tab Unknown 1,000 mg 1,000 mg - Jan LOPEZ tablet tablet Oxygen Oxygen 2014-08 No Roth 2 L Unknown 08-14 Jan LOPEZ oxygen oxygen 2014-08 No [place] 2 Unknown 08-14 Jan LOPEZ liters Voltaren 1 Voltaren 1 No Roth 4 grams Unknown % topical % topical 12-12 Jan LOPEZ gel gel cyclobenzap cyclobenzap 2014-08 No [place] 1 tab Unknown rine 10 mg rine 10 mg 08-14 Can LOPEZ tablet tablet Dinesh Voltaren 1 Voltaren 1 2018- No [place] 4 grams Unknown % topical % topical 12-12 Can LOPEZ gel Dinesh MSM 1,000 MSM 1,000 No [place] 1 tab Unknown mg tablet mg tablet 10-23 Can LOPEZ milk milk 2016- No [place] 2 caps Unknown thistle 175 thistle 175 10-23 Can LOPEZ mg tablet mg tablet Dinesh milk milk No [place] 1 Unknown thistle 350 thistle 350 10-30 Can LOPEZ capusle mg capsule mg capsule Dinesh (350 mg traMADol 50 traMADol 50 No Roth 50-75mg Unknown mg tablet mg tablet 10-30 Jan LOPEZ aspirin 81 aspirin 81 No [place] 1 Unknown mg chewable mg chewable 11-29 Can LOPEZ tablet tablet tablet Dinesh (81 Mg) acetaminoph acetaminoph No [place] 2 Unknown en 500 mg en 500 mg 12-18 Can LOPEZ tablets tablet tablet Dinesh (1000mg ) busPIRone busPIRone 2016- No [place] 1 Unknown 10 mg 10 mg 01-01 Can LOPEZ tablet tablet Dinesh naproxen naproxen 2016- No [place] 1 tab Unknown 500 mg 500 mg 01-08 Can LOPEZ tablet,juan tablet,juan Dinesh yed release yed release busPIRone busPIRone No [place] 1 Unknown 10 mg 10 mg 01-01 Can LOPEZ tablet tablet Dinesh traMADol 50 traMADol 50 2018- No [place] 50-75mg Unknown mg tablet mg tablet 10-30 Can LOPEZ Vitamin D3 Vitamin D3 2016-08 No [place] 1,000 Unknown 1,000 unit 1,000 unit 0 Can LOPEZ Unit capsule capsule Dinesh levoFLOXaci levoFLOXaci 2017- No [place] 500mg Unknown n 500 mg n 500 mg 09-01 Can LOPEZ tablet tablet Dinesh naproxen naproxen No [place] 1 tab Unknown 500 mg 500 mg 01-08 ,Can tablet,juan tablet,juan Dinesh yed release yed release ALPRAZolam ALPRAZolam 2014-08 No [place] 1 tab Unknown 0.5 mg 0.5 mg 08-14 MDJan tablet tablet ginkgo ginkgo No [place] Unknown Unknown biloba 60 biloba 60 03-25 Can LOPEZ mg capsule mg capsule Dinesh lisinopril lisinopril 2017-08- No [place] Unknown Unknown 5 mg tablet 5 mg tablet 0- Ashley LOPEZ metoprolol metoprolol 2018- No [place] Unknown Unknown succinate succinate 09-28 Ashley LOPEZ ER 50 mg ER 50 mg tablet,exte tablet,exte nded nded release 24 release 24 hr hr metoprolol metoprolol No [place] Unknown Unknown tartrate 50 tartrate 50 - ,Jonatha mg tablet mg tablet n ashwagandha ashwagandha 2018-08 No [place] Unknown Unknown 600mg 600mg 08-16 Ashley LOPEZ Vital Signs Vital Name Observation [...]
--- OUTSIDE RECORDS SUMMARY | 2019-10-06 10:56 | XMS REPORT ---
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 [place] (current) (current) Malnoske use of use of RN aspirin aspirin Respiratory treatments Respirator Resolve 2014-082016-09-25 Carmelita ordered y d 1-11 11:45:00 Dale [id number] Safety knowledge/s Safety Resolve 2016-02-08 Kayleigh kill d 09-15 15:04:00 Sinnigen deficit: pt 15:30: [id number] 00 Diagnoses knowledge/s Diagnoses Active Tammee kill 09-15 Douglas-Hor deficit: pt 15:30: an 00 Pain frequent Pain Mgmt Resolve 2018-10-21 Carmelita pain d 10-10 11:00:00 Dale 14:30: [id number] 00 Pain knowledge/s Pain Mgmt Resolve 2015-10-11 Carmelita kill d 10-10 14:30:00 Dale deficit: cg 14:30: [id number] 00 Cardio hypertensio Cardiovasc Resolve 2016-09-25 Carmelita n ular d 10-10 11:45:00 Dale 14:30: [id number] 00 Cardio knowledge/s Cardiovasc Resolve 2016-09-25 Carmelita kill ular d 10-10 11:45:00 Dale deficit: cg 14:30: [id number] 00 Respiratory dyspnea Respirator Resolve 2017-06-18 Carmelita present y d 10-10 11:47:00 Dale 14:30: [id number] 00 Respiratory oxygen Respirator Resolve 2017-06-18 Carmelita treatments y d 10-10 11:47:00 Dale in home 14:30: [id number] 00 Respiratory lung sounds Respirator Resolve 2016-05-01 Carmelita deficit y d 10-10 14:30:00 Dale 14:30: [id number] 00 Respiratory CPAP Respirator Resolve 2017-06-18 Carmelita treatments y d 10-10 11:47:00 Dale in home 14:30: [id number] 00 Respiratory knowledge/s Respirator Resolve 2015-10-11 Carmelita kill y d 10-10 14:30:00 Dale deficit: cg 14:30: [id number] 00 Nutrition knowledge/s Nutrition Resolve 2015-10-11 Carmelita kill d 10-10 14:30:00 Dale deficit: cg 14:30: [id number] 00 Neuro anxiety Neuro/Emot Resolve 2016-02-08 Carmelita present ion d 10-10 15:04:00 Dale 14:30: [id number] 00 Neuro depressive Neuro/Emot Resolve 2016-02-08 Carmelita feelings ion d 10-10 15:04:00 Dale present 14:30: [id number] 00 Neuro knowledge/s Neuro/Emot Resolve 2016-02-08 Carmelita kill ion d 10-10 15:04:00 Dale deficit: pt 14:30: [id number] 00 Neuro knowledge/s Neuro/Emot Resolve 2016-02-08 Carmelita kill ion d 10-10 15:04:00 Dale deficit: cg 14:30: [id number] 00 Activity knowledge/s Activity Resolve 2015-10-11 Carmelita kill d 10-10 14:30:00 Dale deficit: cg 14:30: [id number] 00 Safety safety Safety Resolve 2015-10-11 Carmelita hazards d 10-10 14:30:00 Dale present 14:30: [id number] 00 Safety fall risk Safety Resolve 2015-10-11 Carmelita factor d 10-10 14:30:00 Dale present 14:30: [id number] 00 Safety risk for Safety Resolve 2015-10-11 Carmelita hospitaliza d 10-10 14:30:00 Dale tion 14:30: [id number] 00 Diagnoses knowledge/s Diagnoses Active Carmelita kill 10-10 Dale deficit: cg 14:30: [id number] 00 Musculoskel knowledge/s Musculoske Resolve 2015-10-11 Carmelita etal kill letal d 10-10 14:30:00 Dale deficit: cg 14:30: [id number] 00 Nutrition knowledge/s Nutrition Resolve 2016-09-25 Kayleigh kill d 10-12 11:45:00 Sinnigen deficit: cg 15:30: [id number] 00 Safety safety Safety Active Kayleigh hazards - Sinnigen present 15:30: [id number] 00 Safety fall risk Safety Active Kayleigh factor - Sinnigen present 15:30: [id number] 00 Safety risk for Safety Active Kayleigh hospitaliza - Sinnigen tion 15:30: [id number] 00 Cardio edema Cardiovasc Resolve 2016-09-25 Carmelita ular d 3-18 11:45:00 Dale 15:30: [id number] 00 Pain frequent Pain Mgmt Unknown Moon pain 12-05 Danilo 16:31: [id number] 00 Pain knowledge/s Pain Mgmt Resolve 2016-02-08 Moon kill d 12-05 15:04:00 Danilo deficit: cg 16:31: [id number] 00 Cardio knowledge/s Cardiovasc Unknown Moon kill ular 12-05 Danilo deficit: cg 16:31: [id number] 00 Respiratory knowledge/s Respirator Resolve 2015-12-06 Moon kill y d 12-05 16:31:00 Danilo deficit: cg 16:31: [id number] 00 Integument skin Integument Resolve 2016-02-08 Moon integrity d 12-05 15:04:00 Danilo risk 16:31: [id number] 00 Elimination urinary Eliminatio Resolve 2016-02-08 Moon incontinenc n d 12-05 15:04:00 Danilo e 16:31: [id number] 00 Activity knowledge/s Activity Resolve 2016-02-08 Moon kill d 12-05 15:04:00 Danilo deficit: cg 16:31: [id number] 00 Respiratory knowledge/s Respirator Resolve 2016-02-08 Moon kill y d 12-20 15:04:00 Danilo deficit: cg 15:49: [id number] 00 Respiratory knowledge/s Respirator Unknown 2016-02-08 Kayleigh kill y 01-10 15:04:00 Sinnigen deficit: pt 15:30: [id number] 00 Medication injectable Meds Resolve 2016-02-08 Moon med d 02-07 15:04:00 Danilo assistance 15:04: [id number] required 00 Cardio hypertensio Cardiovasc Unknown Moon n ular 02-22 Danilo 09:45: [id number] 00 Elimination urinary Eliminatio Resolve 2016-02-23 Moon incontinenc n d 02-22 09:45:00 Danilo aggarwal 09:45: [id number] 00 Elimination ostomy Eliminatio Resolve 2016-04-17 Moon present n d 02-22 11:53:00 Danilo 09:45: [id number] 00 Elimination urinary Eliminatio Resolve 2016-04-17 Susan incontinenc n d 03-20 11:53:00 [place] e 10:03: [id number] 00 Neuro anxiety Neuro/Emot Resolve 2016-08-21 Moon present ion d 04-05 12:10:00 Danilo 15:49: [id number] 00 Neuro depressive Neuro/Emot Resolve 2016-08-21 Moon feelings ion d 04-05 12:10:00 Danilo present 15:49: [id number] 00 Neuro knowledge/s Neuro/Emot Resolve 2016-08-21 Moon kill ion d 04-05 12:10:00 Danilo deficit: pt 15:49: [id number] 00 Neuro knowledge/s Neuro/Emot Resolve 2016-08-21 Moon kill ion d 04-05 12:10:00 Danilo deficit: cg 15:49: [id number] 00 Activity ADL Activity Resolve 2016-06-19 Moon assistance d 04-05 11:30:00 Danilo required 15:49: [id number] 00 Activity knowledge/s Activity Resolve 2016-05-01 Moon kill d 04-05 14:30:00 Danilo deficit: cg 15:49: [id number] 00 Elimination urinary Eliminatio Resolve 2016-05-01 Susan incontinenc n d 04-24 14:30:00 [place] e 15:00: [id number] 00 Elimination urinary Eliminatio Resolve 2016-05-01 Susan frequency n d 04-24 14:30:00 [place] 15:00: [id number] 00 Respiratory lung sounds Respirator Unknown 2015-08 Susan deficit y 0-05 [place] 14:00: [id number] 00 Elimination urinary Eliminatio Resolve 2015-082016-05-15 Moon incontinenc n d 14:11:00 Danilo aggarwal 14:11: [id number] 00 Elimination urinary Eliminatio Resolve 2015-082016-05-29 Moon incontinenc n d 13:42:00 Danilo aggarwal 13:42: [id number] 00 Respiratory lung sounds Respirator Resolve 2015-082016-07-03 Susan deficit y d 08-05 14:12:00 [place] 12:38: [id number] 00 Respiratory CPAP Respirator Unknown 2015-08 Moon treatments y 08-06 Carrasco in home 14:31: [id number] 00 Respiratory dyspnea Respirator Unknown 2015-08 Moon present y 08-06 Carrasco 14:31: [id number] 00 Elimination urinary Eliminatio Resolve 2015-082016-06-06 Moon incontinenc n d 08-06 14:31:00 Carrasco e 14:31: [id number] 00 Integument skin Integument Active 2015-08 Moon integrity 09-02 Carrasco risk 14:12: [id number] 00 Elimination urinary Eliminatio Resolve 2015-082016-07-03 Moon incontinenc n d 09-02 14:12:00 Danilo e 14:12: [id number] 00 Elimination urinary Eliminatio Resolve 2015-082016-08-09 Moon incontinenc n d -14 10:32:00 Danilo aggarwal 12:00: [id number] 00 Respiratory lung sounds Respirator Resolve 2015-082016-08-21 Moon deficit y d 10-01 12:10:00 Danilo 10:43: [id number] 00 Cardio edema Cardiovasc Unknown Moon ular 08-09 Danilo 10:32: [id number] 00 Respiratory dyspnea Respirator Unknown Moon present y 08-09 Danilo 10:32: [id number] 00 Activity ADL Activity Resolve 2016-08-21 Moon assistance d 08-09 12:10:00 Danilo required 10:32: [id number] 00 Musculoskel transfer Musculoske Resolve 2016-09-25 Moon etal assistance letal d 08-09 11:45:00 Danilo required 10:32: [id number] 00 Musculoskel knowledge/s Musculoske Resolve 2016-09-25 Moon etal kill letal d 08-09 11:45:00 Danilo deficit: cg 10:32: [id number] 00 Nutrition nutritional Nutrition Resolve 2016-11-20 Moon restriction d 08-21 09:45:00 Danilo kirby 12:10: [id number] 00 Neuro depressive Neuro/Emot Resolve 2019-02-10 Moon feelings ion d 09-11 09:00:00 Danilo present 13:00: [id number] 00 Neuro anxiety Neuro/Emot Resolve 2019-02-10 Moon present ion d 09-11 09:00:00 Danilo 13:00: [id number] 00 Cardio edema Cardiovasc Resolve 2017-06-18 Moon ular d 10-07 11:47:00 Danilo 13:05: [id number] 00 Respiratory dyspnea Respirator Unknown Moon present y 10-07 Danilo 13:05: [id number] 00 Activity ADL Activity Resolve 2017-06-18 Moon assistance d 10-07 11:47:00 Danilo required 13:05: [id number] 00 Musculoskel transfer Musculoske Resolve 2016-10-23 Moon etal assistance letal d 10-07 11:30:00 Danilo required 13:05: [id number] 00 Respiratory treatments Respirator Resolve 2017-10-22 Susan ordered y d 10-30 12:00:00 [place] 11:00: [id number] 00 Nutrition knowledge/s Nutrition Resolve 2016-11-20 Susan kill d 10-30 09:45:00 [place] deficit: cg 11:00: [id number] 00 Respiratory dyspnea Respirator Unknown Susan present y 10-31 [place] 11:30: [id number] 00 Respiratory dyspnea Respirator Unknown Susan present y 11-13 [place] 13:45: [id number] 00 Respiratory dyspnea Respirator Unknown Purnima present y 11-27 Burgess 10:30: [id number] 00 Respiratory CPAP Respirator Unknown Purnima treatments y 4- Burgess in home 10:30: [id number] 00 Nutrition nutritional Nutrition Resolve 2017-05-21 Purnima restriction d 12-04 13:07:00 Burgess s 10:00: [id number] 00 Respiratory dyspnea Respirator Unknown Susan present y 12-11 [place] 12:15: [id number] 00 Test/Treatm tests Test/Injec Resolve 2017-12-31 Purnima ent ordered t/Rashard d 12-18 11:45:00 Burgess [id number] Respiratory dyspnea Respirator Unknown Susan present y 12-25 [place] 12:20: [id number] 00 Musculoskel transfer Musculoske Unknown Purnima etal assistance letal 01-01 Burgess required 09:45: [id number] 00 Musculoskel requires Musculoske Unknown Purnima etal human letal 01-01 Burgess assist to 09:45: [id number] leave home 00 Respiratory dyspnea Respirator Unknown Susan present y 01-08 [place] 11:50: [id number] 00 Respiratory lung sounds Respirator Unknown Susan deficit y 01-15 [place] 13:00: [id number] 00 Respiratory dyspnea Respirator Unknown Juliana present y 01-29 Wilbert 11:15: [id number] 00 Respiratory dyspnea Respirator Unknown Susan present y 02-19 [place] 10:38: [id number] 00 Cardio knowledge/s Cardiovasc Resolve 2017-09-30 Juliana kill ular d 03-05 11:00:00 Wilbert deficit: cg 12:13: [id number] 00 Respiratory dyspnea Respirator Unknown Susan present y 03-12 [place] 10:51: [id number] 00 Musculoskel requires Musculoske Unknown Juliana etal human letal 03-19 Wilbert assist to 11:56: [id number] leave home 00 Respiratory dyspnea Respirator Unknown Juliana present y 03-24 Wilbert 12:05: [id number] 00 Nutrition knowledge/s Nutrition Resolve 2017-05-21 Juliana kill d 03-24 13:07:00 Wilbert deficit: cg 12:05: [id number] 00 Respiratory dyspnea Respirator Unknown Tammee present y 04-02 Amina-Hor 11:38: an 00 Musculoskel requires Musculoske Resolve 2018-12-30 Juliana etal human letal d 04-02 09:56:00 Wilbert assist to 11:38: [id number] leave home 00 Respiratory dyspnea Respirator Unknown Susan present y 9 [place] 15:15: [id number] 00 Musculoskel transfer Musculoske Resolve 2018-12-30 Juliana etal assistance letal d 04-30 09:56:00 Wilbert required 13:23: [id number] 00 Respiratory dyspnea Respirator Unknown 2016-08 Susan present y 0- [place] 11:59: [id number] 00 Cardio knowledge/s Cardiovasc Resolve 2016-082017-09-30 [place] [...] clinically d 0-11 11:47:00 Malnoske significant 11:35: chief clinical dietitian 00 issue Respiratory dyspnea Respirator Unknown 2016-08 [place] present y 0-18 Malnoske 13:07: RN 00 Nutrition knowledge/s Nutrition Resolve 2016-082017-05-21 [place] kill d 0-18 13:07:00 Malnoske deficit: pt 13:07: RN 00 Musculoskel requires Musculoske Resolve 2016-082018-12-30 [place] etal special letal d 0-18 09:56:00 Malnoske transportat 13:07: RN ion 00 Respiratory dyspnea Respirator Unknown 2016-08 Susan present y 0-25 [place] 13:00: [id number] 00 Nutrition nutritional Nutrition Resolve 2016-082017-12-17 [place] restriction d 0-26 12:29:00 Malnoske s 14:20: RN 00 Nutrition knowledge/s Nutrition Resolve 2016-082017-12-17 [place] kill d 0-26 12:29:00 Malnoske deficit: pt 14:20: RN 00 Elimination urinary Eliminatio Resolve 2016-082017-06-18 [place] incontinenc n d 0- 11:47:00 Malnoske e 14:20: RN 00 Respiratory dyspnea Respirator Unknown 2016-08 Milagros present y 08-18 Alexandro Roya 12:53: [id number] 00 Respiratory dyspnea Respirator Resolve 2016-082018-01-28 Milagros present y d 09-01 11:42:00 Alexandro Roya 11:34: [id number] 00 Cardio edema Cardiovasc Resolve 2016-082018-12-30 [place] [...] 2017-09-30 Susan incontinenc n d 1- 11:00:00 [place] e 11:29: [id number] 00 Medication potential Meds Resolve 2018-03-25 [place] clinically d 2-21 11:00:00 Malnoske significant 09:50: chief clinical dietitian 00 issue Respiratory oxygen Respirator Resolve 2018-01-28 [place] treatments y d 2-27 11:42:00 Malnoske in home 11:00: RN 00 Respiratory CPAP Respirator Resolve 2018-01-28 Susan treatments y d 3-14 11:42:00 [place] in home 12:20: [id number] 00 Elimination urinary Eliminatio Resolve 2017-10-22 [place] incontinenc n d 3-21 12:00:00 Malnoske e 12:00: RN 00 Elimination urinary Eliminatio Resolve 2017-12-17 [place] incontinenc n d 4-18 12:29:00 Malnoske e 10:37: RN 00 Medication oral med Meds Resolve 2018-03-25 Juliana assistance d 11-28 11:00:00 Wilbert required 14:17: [id number] 00 Endo/Marquis anti-coagul Endo/Marquis Resolve 2018-12-30 [place] ation d 12-31 09:56:00 Malnoske therapy 11:45: RN 00 Nutrition nutritional Nutrition Resolve 2018-06-17 [place] restriction d 12-31 10:01:00 Malnoske s 11:45: RN 00 Elimination urinary Eliminatio Resolve 2018-01-28 [place] incontinenc n d 12-31 11:42:00 Malnoske e 11:45: RN 00 Respiratory lung sounds Respirator Resolve 2019-02-10 Tiki deficit y d 01-28 09:00:00 Guidelli 11:42: [id number] 00 OT: Self self-care OT: Active Keshia Care deficit Self-Care 02-12 Jeison 13:00: [id number] 00 OT: Self knowledge/s OT: Active Keshia Care kill Self-Care 02-12 Jeison deficit: pt 13:00: [id number] 00 Respiratory oxygen Respirator Resolve 2019-02-10 Lori treatments y d 02-25 09:00:00 Mccammon-Zos in home 08:32: h [id number] 00 Elimination urinary Eliminatio Resolve 2019-01-13 Lori incontinenc n d 02-25 09:45:00 Yakov-Zos e 08:32: h [id number] 00 Respiratory dyspnea Respirator Resolve 2019-02-10 Juliana present y d 03-25 09:00:00 Denny 11:00: [id number] 00 Medication oral med Meds Resolve 2018-06-17 Lori assistance d 04-22 10:01:00 Yakov-Zos required 10:16: h [id number] 00 Nutrition nutritional Nutrition Resolve 2017-082019-01-13 Lori restriction d 09-15 09:45:00 Mccammon-Zos s 10:25: h [id number] 00 Neuro impaired Neuro/Emot Resolve 2017-082019-07-20 Lori decision-ma ion d 2-20 10:28:00 Yakov-Zos johny 10:55: h [id number] 00 Neuro behavior Neuro/Emot Resolve 2017-082019-07-20 Lori problems ion d 2-20 10:28:00 Mccammon-Zos 10:55: h [id number] 00 Endo/Marquis glucose Endo/Marquis Resolve 2018-12-30 Laura testing d 2- 09:56:00 Violette, dependence 14:40: [id number] 00 Medication oral med Meds Resolve 2018-09-24 Laura assistance d 2- 14:40:00 Violette, required 14:40: [id number] 00 Endo/Marquis anti-coagul Endo/Marquis Resolve 2019-02-10 Juliana [...] 0-30 10:30:00 Stacey e 11:00: [employer] 00 [id number] Respiratory CPAP Respirator Resolve 2018-082019-07-20 [place] treatments [...] 2-26 10:22:00 Stacey e 09:00: [employer] 00 [id number] Musculoskel requires Musculoske Active [place] etal human [...] mg-bioflv-r ose ose tablet,ext. tablet,ext. release release [place] 3 [place] 3 2014-08 No Roth 2400mg Unknown Fish [...] LOPEZ gel gel cyclobenzap cyclobenzap 2014-08 No [place] 1 tab Unknown rine 10 mg rine 10 mg 08-14 ,Can tablet tablet Dinesh Voltaren 1 Voltaren 1 2018- No [place] 4 grams Unknown % topical % topical 12-12 Can LOPEZ gel Dinesh MSM 1,000 MSM 1,000 No [place] 1 tab Unknown mg tablet mg tablet 10-23 Can LOPEZ milk milk 2016- No [place] 2 caps Unknown thistle 175 thistle 175 10-23 Can LOPEZ mg tablet mg tablet Dinesh milk milk No [place] 1 Unknown thistle 350 thistle 350 10-30 Can LOPEZ capusle mg capsule mg capsule Dinesh (350 mg traMADol 50 traMADol 50 2016- No Roth 50-75mg Unknown mg tablet mg tablet 10-30 Jan LOPEZ aspirin 81 aspirin 81 No [place] 1 Unknown mg chewable mg chewable 11-29 Can LOPEZ tablet tablet tablet Dinesh (81 Mg) acetaminoph acetaminoph No [place] 2 Unknown en 500 mg en 500 mg 12-18 Can LOPEZ tablets tablet tablet Dinesh (1000mg ) busPIRone busPIRone 2016- No [place] 1 Unknown 10 mg 10 mg 01-01 Can LOPEZ tablet tablet Dinesh naproxen naproxen 2016- No [place] 1 tab Unknown 500 mg 500 mg 01-08 Can LOPEZ tablet,juan tablet,juan Dinesh yed release yed release busPIRone busPIRone No [place] 1 Unknown 10 mg 10 mg 5 Can LOPEZ tablet tablet Dinesh traMADol 50 traMADol 50 2018- No [place] 50-75mg Unknown mg tablet mg tablet 10-30 Can LOPEZ Vitamin D3 Vitamin D3 2016-08 No [place] 1,000 Unknown 1,000 unit 1,000 unit 0 Can LOPEZ Unit capsule capsule Dinesh levoFLOXaci levoFLOXaci 2017- No [place] 500mg Unknown n 500 mg n 500 mg 09-01 Can LOPEZ tablet tablet Dinesh naproxen naproxen No [place] 1 tab Unknown 500 mg 500 mg 01-08 Can LOPEZ tablet,juan tablet,juan Dinesh yed release yed release ALPRAZolam ALPRAZolam 2014-08 No Roth 1 tab Unknown 0.5 mg 0.5 mg 08-14 MDJan tablet tablet ginkgo ginkgo No [place] Unknown Unknown biloba 60 biloba 60 03-25 [...]
--- OUTSIDE RECORDS SUMMARY | 2019-10-06 10:56 | XMS REPORT ---
:1945 Author Organization [facility] Care Team Providers Name Role Phone Alfredito Simons Unavailable Unavailable PROBLEMS Unknown Problems ALLERGIES No Information ENCOUNTERS Encounter Location Date Diagnosis [facility] [address] [place], [place] Sep, [id number] [facility] [address] [facility], Sep, [facility] [address] [facility] [address], [place] Mar, [address] [facility] [address] [place] [address] Feb, [place] [address] [facility] [address], [place] Nov, [address] [facility] [address] [place] [address] Oct, [place] [address] [facility] [address], [place] Sep, [address] Sep, [address] [facility] [address] [place], [place] Jul, [place] [address] IMMUNIZATIONS No Known Immunizations SOCIAL HISTORY Never Assessed REASON FOR REFERRAL FUNCTIONAL STATUS PLAN OF CARE VITAL SIGNS MEDICATIONS Unknown Medications PROCEDURES No Known procedures RESULTS No Results REASON FOR VISIT triage dental Insurance Providers [facility] Member Patient Patient Patient Patient Patient Subscriber Subscriber Subscriber Group Insurance Plan Plan Plan Plan ID Relationship Address Phone Name Date of ID Name Date of No Type Insurance Insurance Insurance Coverage to Subscriber Address Phone Name Dates Medicare National [id number] Medicare self Stan [id number] PPS Government [employer] [address] [facility] [id number] Medicaid [id number] [phone] Medicaid self Stan [id number] [address] [address] MEDICAL (GENERAL) HISTORY Type Description Date Medical History artificical joints Medical History surgical implants Medical History PRE-MED REQUIRED Medical History diabetes mallitus Medical History high blood pressure Medical History herniated disc Medical History syringomyelia
--- OUTSIDE RECORDS SUMMARY | 2019-10-06 10:56 | XMS REPORT ---
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 [place] (current) (current) [place] use of use of RN aspirin aspirin Respiratory treatments Respirator Resolve 2014-082016-09-25 Carmelita ordered y d 1-11 11:45:00 Dale [id number] Safety knowledge/s Safety Resolve 2016-02-08 Kayleigh kill d 09-15 15:04:00 Sinnigen deficit: pt 15:30: [id number] Diagnoses knowledge/s Diagnoses Active Tammee kill 09-15 [place] deficit: pt 15:30: an 00 Pain frequent Pain Mgmt Resolve 2018-10-21 Carmelita pain d 10-10 11:00:00 Dale 14:30: [id number] 00 Pain knowledge/s Pain Mgmt Resolve 2015-10-11 Carmelita kill d 10-10 14:30:00 Dale deficit: cg 14:30: [id number] 00 Cardio hypertensio Cardiovasc Resolve 2016-09-25 Carmelita n ular d 10-10 11:45:00 Dale 14:30: [id number] 00 Cardio knowledge/s Cardiovasc Resolve 2016-09-25 Carmelita kill ular d 10-10 11:45:00 Dale deficit: cg 14:30: [id number] 00 Respiratory dyspnea Respirator Resolve 2017-06-18 Carmelita present y d 10-10 11:47:00 Dale 14:30: [id number] 00 Respiratory oxygen Respirator Resolve 2017-06-18 Carmelita treatments y d 10-10 11:47:00 Dale in home 14:30: [id number] 00 Respiratory lung sounds Respirator Resolve 2016-05-01 Carmelita deficit y d 10-10 14:30:00 Dale 14:30: [id number] 00 Respiratory CPAP Respirator Resolve 2017-06-18 Carmelita treatments y d 10-10 11:47:00 Dale in home 14:30: [id number] 00 Respiratory knowledge/s Respirator Resolve 2015-10-11 Carmelita kill y d 10-10 14:30:00 Dale deficit: cg 14:30: [id number] 00 Nutrition knowledge/s Nutrition Resolve 2015-10-11 Carmelita kill d 10-10 14:30:00 Dale deficit: cg 14:30: [id number] 00 Neuro anxiety Neuro/Emot Resolve 2016-02-08 Carmelita present ion d 10-10 15:04:00 Dale 14:30: [id number] 00 Neuro depressive Neuro/Emot Resolve 2016-02-08 Carmelita feelings ion d 10-10 15:04:00 Dale present 14:30: [id number] 00 Neuro knowledge/s Neuro/Emot Resolve 2016-02-08 Carmelita kill ion d 10-10 15:04:00 Dale deficit: pt 14:30: [id number] 00 Neuro knowledge/s Neuro/Emot Resolve 2016-02-08 Carmelita kill ion d 10-10 15:04:00 Dale deficit: cg 14:30: [id number] 00 Activity knowledge/s Activity Resolve 2015-10-11 Carmelita kill d 10-10 14:30:00 Dale deficit: cg 14:30: [id number] 00 Safety safety Safety Resolve 2015-10-11 Carmelita hazards d 10-10 14:30:00 Dale present 14:30: [id number] 00 Safety fall risk Safety Resolve 2015-10-11 Carmelita factor d 10-10 14:30:00 Dale present 14:30: [id number] 00 Safety risk for Safety Resolve 2015-10-11 Carmelita hospitaliza d 10-10 14:30:00 Dale tion 14:30: [id number] 00 Diagnoses knowledge/s Diagnoses Active Carmelita kill 10-10 Dale deficit: cg 14:30: [id number] 00 Musculoskel knowledge/s Musculoske Resolve 2015-10-11 Carmelita etal kill letal d 10-10 14:30:00 Dale deficit: cg 14:30: [id number] 00 Nutrition knowledge/s Nutrition Resolve 2016-09-25 Kayleigh kill d 10-12 11:45:00 Sinnigen deficit: cg 15:30: [id number] 00 Safety safety Safety Active Kayleigh hazards - Sinnigen present 15:30: [id number] 00 Safety fall risk Safety Active Kayleigh factor - Sinnigen present 15:30: [id number] 00 Safety risk for Safety Active Kayleigh hospitaliza - Sinnigen tion 15:30: [id number] 00 Cardio edema Cardiovasc Resolve 2016-09-25 Carmelita ular d 3-18 11:45:00 Dale 15:30: [id number] 00 Pain frequent Pain Mgmt Unknown Moon pain 12-05 Danilo 16:31: [id number] 00 Pain knowledge/s Pain Mgmt Resolve 2016-02-08 Moon kill d 12-05 15:04:00 Danilo deficit: cg 16:31: [id number] 00 Cardio knowledge/s Cardiovasc Unknown Moon kill ular 12-05 Danilo deficit: cg 16:31: [id number] 00 Respiratory knowledge/s Respirator Resolve 2015-12-06 Moon kill y d 12-05 16:31:00 Danilo deficit: cg 16:31: [id number] 00 Integument skin Integument Resolve 2016-02-08 Moon integrity d 12-05 15:04:00 Danilo risk 16:31: [id number] 00 Elimination urinary Eliminatio Resolve 2016-02-08 Moon incontinenc n d 12-05 15:04:00 Danilo e 16:31: [id number] 00 Activity knowledge/s Activity Resolve 2016-02-08 Moon kill d 12-05 15:04:00 Danilo deficit: cg 16:31: [id number] 00 Respiratory knowledge/s Respirator Resolve 2016-02-08 Moon kill y d 12-20 15:04:00 Danilo deficit: cg 15:49: [id number] 00 Respiratory knowledge/s Respirator Unknown 2016-02-08 Kayleigh kill y 01-10 15:04:00 Sinnigen deficit: pt 15:30: [id number] 00 Medication injectable Meds Resolve 2016-02-08 Moon med d 02-07 15:04:00 Danilo assistance 15:04: [id number] required 00 Cardio hypertensio Cardiovasc Unknown Moon n ular 02-22 Danilo 09:45: [id number] 00 Elimination urinary Eliminatio Resolve 2016-02-23 Moon incontinenc n d 02-22 09:45:00 Danilo aggarwal 09:45: [id number] 00 Elimination ostomy Eliminatio Resolve 2016-04-17 Moon present n d 02-22 11:53:00 Danilo 09:45: [id number] 00 Elimination urinary Eliminatio Resolve 2016-04-17 Susan incontinenc n d 03-20 11:53:00 [place] e 10:03: [id number] 00 Neuro anxiety Neuro/Emot Resolve 2016-08-21 Moon present ion d 04-05 12:10:00 Danilo 15:49: [id number] 00 Neuro depressive Neuro/Emot Resolve 2016-08-21 Moon feelings ion d 04-05 12:10:00 Danilo present 15:49: [id number] 00 Neuro knowledge/s Neuro/Emot Resolve 2016-08-21 Moon kill ion d 04-05 12:10:00 Danilo deficit: pt 15:49: [id number] 00 Neuro knowledge/s Neuro/Emot Resolve 2016-08-21 Moon kill ion d 04-05 12:10:00 Danilo deficit: cg 15:49: [id number] 00 Activity ADL Activity Resolve 2016-06-19 Moon assistance d 04-05 11:30:00 Danilo required 15:49: [id number] 00 Activity knowledge/s Activity Resolve 2016-05-01 Moon kill d 04-05 14:30:00 Danilo deficit: cg 15:49: [id number] 00 Elimination urinary Eliminatio Resolve 2016-05-01 Susan incontinenc n d 04-24 14:30:00 [place] e 15:00: [id number] 00 Elimination urinary Eliminatio Resolve 2016-05-01 Susan frequency n d 04-24 14:30:00 [place] 15:00: [id number] 00 Respiratory lung sounds Respirator Unknown 2015-08 Susan deficit y 0-05 [place] 14:00: [id number] 00 Elimination urinary Eliminatio Resolve 2015-082016-05-15 Moon incontinenc n d 14:11:00 Danilo aggarwal 14:11: [id number] 00 Elimination urinary Eliminatio Resolve 2015-082016-05-29 Moon incontinenc n d 13:42:00 Danilo aggarwal 13:42: [id number] 00 Respiratory lung sounds Respirator Resolve 2015-082016-07-03 Susan deficit y d 08-05 14:12:00 [place] 12:38: [id number] 00 Respiratory CPAP Respirator Unknown 2015-08 Moon treatments y 08-06 [place] in home 14:31: [id number] 00 Respiratory dyspnea Respirator Unknown 2015-08 Moon present y 08-06 [place] 14:31: [id number] 00 Elimination urinary Eliminatio Resolve 2015-082016-06-06 Moon incontinenc n d 08-06 14:31:00 [place] e 14:31: [id number] 00 Integument skin Integument Active 2015-08 Moon integrity 09-02 [place]co risk 14:12: [id number] 00 Elimination urinary Eliminatio Resolve 2015-082016-07-03 Moon incontinenc n d 09-02 14:12:00 Danilo e 14:12: [id number] 00 Elimination urinary Eliminatio Resolve 2015-082016-08-09 Moon incontinenc n d -14 10:32:00 Danilo aggarwal 12:00: [id number] 00 Respiratory lung sounds Respirator Resolve 2015-082016-08-21 Moon deficit y d 10-01 12:10:00 Danilo 10:43: [id number] 00 Cardio edema Cardiovasc Unknown Moon ular 08-09 Danilo 10:32: [id number] 00 Respiratory dyspnea Respirator Unknown Moon present y 08-09 Danilo 10:32: [id number] 00 Activity ADL Activity Resolve 2016-08-21 Moon assistance d 08-09 12:10:00 Danilo required 10:32: [id number] 00 Musculoskel transfer Musculoske Resolve 2016-09-25 Moon etal assistance letal d 08-09 11:45:00 Danilo required 10:32: [id number] 00 Musculoskel knowledge/s Musculoske Resolve 2016-09-25 Moon etal kill letal d 08-09 11:45:00 Danilo deficit: cg 10:32: [id number] 00 Nutrition nutritional Nutrition Resolve 2016-11-20 Moon restriction d 08-21 09:45:00 Danilo kirby 12:10: [id number] 00 Neuro depressive Neuro/Emot Resolve 2019-02-10 Moon feelings ion d 09-11 09:00:00 Danilo present 13:00: [id number] 00 Neuro anxiety Neuro/Emot Resolve 2019-02-10 Moon present ion d 09-11 09:00:00 Danilo 13:00: [id number] 00 Cardio edema Cardiovasc Resolve 2017-06-18 Moon ular d 10-07 11:47:00 Danilo 13:05: [id number] 00 Respiratory dyspnea Respirator Unknown Moon present y 10-07 Danilo 13:05: [id number] 00 Activity ADL Activity Resolve 2017-06-18 Moon assistance d 10-07 11:47:00 Danilo required 13:05: [id number] 00 Musculoskel transfer Musculoske Resolve 2016-10-23 Moon etal assistance letal d 10-07 11:30:00 Danilo required 13:05: [id number] 00 Respiratory treatments Respirator Resolve 2017-10-22 Susan ordered y d 10-30 12:00:00 [place] 11:00: [id number] 00 Nutrition knowledge/s Nutrition Resolve 2016-11-20 Susan kill d 10-30 09:45:00 [place] deficit: cg 11:00: [id number] 00 Respiratory dyspnea Respirator Unknown Susan present y 10-31 [place] 11:30: [id number] 00 Respiratory dyspnea Respirator Unknown Susan present y 11-13 [place] 13:45: [id number] 00 Respiratory dyspnea Respirator Unknown Purnima present y 11-27 [place] 10:30: [id number] 00 Respiratory CPAP Respirator Unknown Purnima treatments y 4- Burg[place] in home 10:30: [id number] 00 Nutrition nutritional Nutrition Resolve 2017-05-21 Purnima restriction d 12-04 13:07:00 [place] s 10:00: [id number] 00 Respiratory dyspnea Respirator Unknown Susan present y 12-11 [place] 12:15: [id number] 00 Test/Treatm tests Test/Injec Resolve 2017-12-31 Purnima ent ordered t/Rashard d 12-18 11:45:00 [place] [id number] Respiratory dyspnea Respirator Unknown Susan present y 12-25 [place] 12:20: [id number] 00 Musculoskel transfer Musculoske Unknown Purnima etal assistance letal 01-01 [place] required 09:45: [id number] 00 Musculoskel requires Musculoske Unknown Purnima etal human letal 01-01 [place] assist to 09:45: [id number] leave home 00 Respiratory dyspnea Respirator Unknown Susan present y 01-08 [place] 11:50: [id number] 00 Respiratory lung sounds Respirator Unknown Susan deficit y 01-15 [place] 13:00: [id number] 00 Respiratory dyspnea Respirator Unknown Juliana present y 01-29 Wilbert 11:15: [id number] 00 Respiratory dyspnea Respirator Unknown Susan present y 02-19 [place] 10:38: [id number] 00 Cardio knowledge/s Cardiovasc Resolve 2017-09-30 Juliana kill ular d 03-05 11:00:00 Wilbert deficit: cg 12:13: [id number] 00 Respiratory dyspnea Respirator Unknown Susan present y 03-12 [place] 10:51: [id number] 00 Musculoskel requires Musculoske Unknown Juliana etal human letal 03-19 Wilbert assist to 11:56: [id number] leave home 00 Respiratory dyspnea Respirator Unknown Juliana present y 03-24 Wilbert 12:05: [id number] 00 Nutrition knowledge/s Nutrition Resolve 2017-05-21 Juliana kill d 03-24 13:07:00 Wilbert deficit: cg 12:05: [id number] 00 Respiratory dyspnea Respirator Unknown Tammee present y 04-02 Amina-Hor 11:38: an 00 Musculoskel requires Musculoske Resolve 2018-12-30 Juliana etal human letal d 04-02 09:56:00 Wilbert assist to 11:38: [id number] leave home 00 Respiratory dyspnea Respirator Unknown Susan present y 9 [place] 15:15: [id number] 00 Musculoskel transfer Musculoske Resolve 2018-12-30 Juliana etal assistance letal d 04-30 09:56:00 Wilbert required 13:23: [id number] 00 Respiratory dyspnea Respirator Unknown 2016-08 Susan present y 0- [place] 11:59: [id number] 00 Cardio knowledge/s Cardiovasc Resolve 2016-082017-09-30 [place] [...] clinically d 0-11 11:47:00 [place] significant 11:35: band maker 00 issue Respiratory dyspnea Respirator Unknown 2016-08 [place] present y 0-18 [place] 13:07: RN 00 Nutrition knowledge/s Nutrition Resolve 2016-082017-05-21 [place] kill d 0-18 13:07:00 [place] deficit: pt 13:07: RN 00 Musculoskel requires Musculoske Resolve 2016-082018-12-30 [place] etal special letal d 0-18 09:56:00 [place] transportat 13:07: RN ion 00 Respiratory dyspnea Respirator Unknown 2016-08 Susan present y 0-25 [place] 13:00: [id number] 00 Nutrition nutritional Nutrition Resolve 2016-082017-12-17 [place] restriction d 0-26 12:29:00 [place] s 14:20: RN 00 Nutrition knowledge/s Nutrition Resolve 2016-082017-12-17 [place] kill d 0-26 12:29:00 [place] deficit: pt 14:20: RN 00 Elimination urinary Eliminatio Resolve 2016-082017-06-18 [place] incontinenc n d 0- 11:47:00 [place] e 14:20: RN 00 Respiratory dyspnea Respirator Unknown 2016-08 Milagros present y 08-18 Alexandro Roya 12:53: [id number] 00 Respiratory dyspnea Respirator Resolve 2016-082018-01-28 Milagros present y d 09-01 11:42:00 Alexandro Roya 11:34: [id number] 00 Cardio edema Cardiovasc Resolve 2016-082018-12-30 [place] [...] 2017-09-30 Susan incontinenc n d 1- 11:00:00 [place] e 11:29: [id number] 00 Medication potential Meds Resolve 2018-03-25 [place] clinically d 2-21 11:00:00 [place] significant 09:50: band maker 00 issue Respiratory oxygen Respirator Resolve 2018-01-28 [place] treatments y d 2-27 11:42:00 [place] in home 11:00: RN 00 Respiratory CPAP Respirator Resolve 2018-01-28 Susan treatments y d 3-14 11:42:00 [place] in home 12:20: [id number] 00 Elimination urinary Eliminatio Resolve 2017-10-22 [place] incontinenc n d 3-21 12:00:00 [place] e 12:00: RN 00 Elimination urinary Eliminatio Resolve 2017-12-17 [place] incontinenc n d 4-18 12:29:00 [place] e 10:37: RN 00 Medication oral med Meds Resolve 2018-03-25 Juliana assistance d 11-28 11:00:00 Wilbert required 14:17: [id number] 00 Endo/Marquis anti-coagul Endo/Marquis Resolve 2018-12-30 [place] ation d 12-31 09:56:00 Mal[place] therapy 11:45: RN 00 Nutrition nutritional Nutrition Resolve 2018-06-17 [place] restriction d 12-31 10:01:00 [place] s 11:45: RN 00 Elimination urinary Eliminatio Resolve 2018-01-28 [place] incontinenc n d 12-31 11:42:00 [place] e 11:45: RN 00 Respiratory lung sounds Respirator Resolve 2019-02-10 Tiki deficit y d 01-28 09:00:00 Guidelli 11:42: [id number] 00 OT: Self self-care OT: Active Keshia Care deficit Self-Care 02-12 Jeison 13:00: [id number] 00 OT: Self knowledge/s OT: Active Keshia Care kill Self-Care 02-12 Jeison deficit: pt 13:00: [id number] 00 Respiratory oxygen Respirator Resolve 2019-02-10 Lori treatments y d 02-25 09:00:00 [place] in home 08:32: h [id number] 00 Elimination urinary Eliminatio Resolve 2019-01-13 Lori incontinenc n d 02-25 09:45:00 Yakov-Zos e 08:32: h [id number] 00 Respiratory dyspnea Respirator Resolve 2019-02-10 Juliana present y d 03-25 09:00:00 Denny 11:00: [id number] 00 Medication oral med Meds Resolve 2018-06-17 Lori assistance d 04-22 10:01:00 Yakov-Zos required 10:16: h [id number] 00 Nutrition nutritional Nutrition Resolve 2017-082019-01-13 Lori restriction d 09-15 09:45:00 [place] s 10:25: h [id number] 00 Neuro impaired Neuro/Emot Resolve 2017-082019-07-20 Lori decision-ma ion d 2-20 10:28:00 Yakov-Zos johny 10:55: h [id number] 00 Neuro behavior Neuro/Emot Resolve 2017-082019-07-20 Lori problems ion d 2-20 10:28:00 [place] 10:55: h [id number] 00 Endo/Marquis glucose Endo/Marquis Resolve 2018-12-30 Laura testing d 2- 09:56:00 Violette, dependence 14:40: [id number] 00 Medication oral med Meds Resolve 2018-09-24 Laura assistance d 2- 14:40:00 [place], required 14:40: [id number] 00 Endo/Marquis anti-coagul Endo/Marquis Resolve 2019-02-10 Juliana [...] 0-30 10:30:00 Stacey e 11:00: [employer] 00 [id number] Respiratory CPAP Respirator Resolve 2018-082019-07-20 [place] treatments [...] 2-26 10:22:00 Stacey e 09:00: [employer] 00 [id number] Musculoskel requires Musculoske Active [place] etal human [...] mg-bioflv-r ose ose tablet,ext. tablet,ext. release release [place] 3 [place] 3 2014-08 No Roth 2400mg Unknown Fish [...] LOPEZ gel gel cyclobenzap cyclobenzap 2014-08 No [place] 1 tab Unknown rine 10 mg rine 10 mg 08-14 ,Can tablet tablet Dinesh Voltaren 1 Voltaren 1 2018- No [place] 4 grams Unknown % topical % topical 12-12 Can LOPEZ gel Dinesh MSM 1,000 MSM 1,000 No [place] 1 tab Unknown mg tablet mg tablet 10-23 Can LOPEZ milk milk 2016- No [place] 2 caps Unknown thistle 175 thistle 175 10-23 Can LOPEZ mg tablet mg tablet Dinesh milk milk No [place] 1 Unknown thistle 350 thistle 350 10-30 Can LOPEZ capusle mg capsule mg capsule Dinesh (350 mg traMADol 50 traMADol 50 2016- No Roth 50-75mg Unknown mg tablet mg tablet 10-30 Jan LOPEZ aspirin 81 aspirin 81 No [place] 1 Unknown mg chewable mg chewable 11-29 Can LOPEZ tablet tablet tablet Dinesh (81 Mg) acetaminoph acetaminoph No [place] 2 Unknown en 500 mg en 500 mg 12-18 Can LOPEZ tablets tablet tablet Dinesh (1000mg ) busPIRone busPIRone 2016- No [place] 1 Unknown 10 mg 10 mg 01-01 Can LOPEZ tablet tablet Dinesh naproxen naproxen 2016- No [place] 1 tab Unknown 500 mg 500 mg 01-08 Can LOPEZ tablet,juan tablet,juan Dinesh yed release yed release busPIRone busPIRone No [place] 1 Unknown 10 mg 10 mg 5 Can LOPEZ tablet tablet Dinesh traMADol 50 traMADol 50 2018- No [place] 50-75mg Unknown mg tablet mg tablet 10-30 Can LOPEZ Vitamin D3 Vitamin D3 2016-08 No [place] 1,000 Unknown 1,000 unit 1,000 unit 0 Can LOPEZ Unit capsule capsule Dinesh levoFLOXaci levoFLOXaci 2017- No [place] 500mg Unknown n 500 mg n 500 mg 09-01 Can LOPEZ tablet tablet Dinesh naproxen naproxen No [place] 1 tab Unknown 500 mg 500 mg 01-08 Can LOPEZ tablet,juan tablet,juan Dinesh yed release yed release ALPRAZolam ALPRAZolam 2014-08 No Roth 1 tab Unknown 0.5 mg 0.5 mg 08-14 MDJan tablet tablet ginkgo ginkgo No [place] Unknown Unknown biloba 60 biloba 60 03-25 [...]
--- OUTSIDE RECORDS SUMMARY | 2019-10-06 10:56 | XMS REPORT ---
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 Active [place] (current) (current) Mal[place]ke use of use of RN aspirin aspirin Respiratory treatments Respirator Resolve 2014-082016-09-25 Carmelita ordered y d 1-11 11:45:00 Dale [id number] Safety knowledge/s Safety Resolve 2016-02-08 Kayleigh kill d 09-15 15:04:00 Sinnigen deficit: pt 15:30: [id number] Diagnoses knowledge/s Diagnoses Active Tammee kill 09-15 Amina-Hor deficit: pt 15:30: an 00 Pain frequent Pain Mgmt Resolve 2018-10-21 Carmelita pain d 10-10 11:00:00 Dale 14:30: [id number] 00 Pain knowledge/s Pain Mgmt Resolve 2015-10-11 Carmelita kill d 10-10 14:30:00 Dale deficit: cg 14:30: [id number] 00 Cardio hypertensio Cardiovasc Resolve 2016-09-25 Carmelita n ular d 10-10 11:45:00 Dale 14:30: [id number] 00 Cardio knowledge/s Cardiovasc Resolve 2016-09-25 Carmelita kill ular d 10-10 11:45:00 Dale deficit: cg 14:30: [id number] 00 Respiratory dyspnea Respirator Resolve 2017-06-18 Carmelita present y d 10-10 11:47:00 Dale 14:30: [id number] 00 Respiratory oxygen Respirator Resolve 2017-06-18 Carmelita treatments y d 10-10 11:47:00 Dale in home 14:30: [id number] 00 Respiratory lung sounds Respirator Resolve 2016-05-01 Carmelita deficit y d 10-10 14:30:00 Dale 14:30: [id number] 00 Respiratory CPAP Respirator Resolve 2017-06-18 Carmelita treatments y d 10-10 11:47:00 Dale in home 14:30: [id number] 00 Respiratory knowledge/s Respirator Resolve 2015-10-11 Carmelita kill y d 10-10 14:30:00 Dale deficit: cg 14:30: [id number] 00 Nutrition knowledge/s Nutrition Resolve 2015-10-11 Carmelita kill d 10-10 14:30:00 Dale deficit: cg 14:30: [id number] 00 Neuro anxiety Neuro/Emot Resolve 2016-02-08 Carmelita present ion d 10-10 15:04:00 Dale 14:30: [id number] 00 Neuro depressive Neuro/Emot Resolve 2016-02-08 Carmelita feelings ion d 10-10 15:04:00 Dale present 14:30: [id number] 00 Neuro knowledge/s Neuro/Emot Resolve 2016-02-08 Carmelita kill ion d 10-10 15:04:00 Dale deficit: pt 14:30: [id number] 00 Neuro knowledge/s Neuro/Emot Resolve 2016-02-08 Carmelita kill ion d 10-10 15:04:00 Dale deficit: cg 14:30: [id number] 00 Activity knowledge/s Activity Resolve 2015-10-11 Carmelita kill d 10-10 14:30:00 Dale deficit: cg 14:30: [id number] 00 Safety safety Safety Resolve 2015-10-11 Carmelita hazards d 10-10 14:30:00 Dale present 14:30: [id number] 00 Safety fall risk Safety Resolve 2015-10-11 Carmelita factor d 10-10 14:30:00 Dale present 14:30: [id number] 00 Safety risk for Safety Resolve 2015-10-11 Carmelita hospitaliza d 10-10 14:30:00 Dale tion 14:30: [id number] 00 Diagnoses knowledge/s Diagnoses Active Carmelita kill 10-10 Dale deficit: cg 14:30: [id number] 00 Musculoskel knowledge/s Musculoske Resolve 2015-10-11 Carmelita etal kill letal d 10-10 14:30:00 Dale deficit: cg 14:30: [id number] 00 Nutrition knowledge/s Nutrition Resolve 2016-09-25 Kayleigh kill d 10-12 11:45:00 Sinnigen deficit: cg 15:30: [id number] 00 Safety safety Safety Active Kayleigh hazards - Sinnigen present 15:30: [id number] 00 Safety fall risk Safety Active Kayleigh factor - Sinnigen present 15:30: [id number] 00 Safety risk for Safety Active Kayleigh hospitaliza - Sinnigen tion 15:30: [id number] 00 Cardio edema Cardiovasc Resolve 2016-09-25 Carmelita ular d 3-18 11:45:00 Dale 15:30: [id number] 00 Pain frequent Pain Mgmt Unknown Moon pain 12-05 Danilo 16:31: [id number] 00 Pain knowledge/s Pain Mgmt Resolve 2016-02-08 Moon kill d 12-05 15:04:00 Danilo deficit: cg 16:31: [id number] 00 Cardio knowledge/s Cardiovasc Unknown Moon kill ular 12-05 Danilo deficit: cg 16:31: [id number] 00 Respiratory knowledge/s Respirator Resolve 2015-12-06 Moon kill y d 12-05 16:31:00 Danilo deficit: cg 16:31: [id number] 00 Integument skin Integument Resolve 2016-02-08 Moon integrity d 12-05 15:04:00 Danilo risk 16:31: [id number] 00 Elimination urinary Eliminatio Resolve 2016-02-08 Moon incontinenc n d 12-05 15:04:00 Danilo e 16:31: [id number] 00 Activity knowledge/s Activity Resolve 2016-02-08 Moon kill d 12-05 15:04:00 Danilo deficit: cg 16:31: [id number] 00 Respiratory knowledge/s Respirator Resolve 2016-02-08 Moon kill y d 12-20 15:04:00 Danilo deficit: cg 15:49: [id number] 00 Respiratory knowledge/s Respirator Unknown 2016-02-08 Kayleigh kill y 01-10 15:04:00 Sinnigen deficit: pt 15:30: [id number] 00 Medication injectable Meds Resolve 2016-02-08 Moon med d 02-07 15:04:00 Danilo assistance 15:04: [id number] required 00 Cardio hypertensio Cardiovasc Unknown Moon n ular 02-22 Danilo 09:45: [id number] 00 Elimination urinary Eliminatio Resolve 2016-02-23 Moon incontinenc n d 02-22 09:45:00 Danilo aggarwal 09:45: [id number] 00 Elimination ostomy Eliminatio Resolve 2016-04-17 Moon present n d 02-22 11:53:00 Danilo 09:45: [id number] 00 Elimination urinary Eliminatio Resolve 2016-04-17 Susan incontinenc n d 03-20 11:53:00 [place] e 10:03: [id number] 00 Neuro anxiety Neuro/Emot Resolve 2016-08-21 Moon present ion d 04-05 12:10:00 Danilo 15:49: [id number] 00 Neuro depressive Neuro/Emot Resolve 2016-08-21 Moon feelings ion d 04-05 12:10:00 Danilo present 15:49: [id number] 00 Neuro knowledge/s Neuro/Emot Resolve 2016-08-21 Moon kill ion d 04-05 12:10:00 Danilo deficit: pt 15:49: [id number] 00 Neuro knowledge/s Neuro/Emot Resolve 2016-08-21 Moon kill ion d 04-05 12:10:00 Danilo deficit: cg 15:49: [id number] 00 Activity ADL Activity Resolve 2016-06-19 Moon assistance d 04-05 11:30:00 Danilo required 15:49: [id number] 00 Activity knowledge/s Activity Resolve 2016-05-01 Moon kill d 04-05 14:30:00 Danilo deficit: cg 15:49: [id number] 00 Elimination urinary Eliminatio Resolve 2016-05-01 Susan incontinenc n d 04-24 14:30:00 [place] e 15:00: [id number] 00 Elimination urinary Eliminatio Resolve 2016-05-01 Susan frequency n d 04-24 14:30:00 [place] 15:00: [id number] 00 Respiratory lung sounds Respirator Unknown 2015-08 Susan deficit y 0-05 [place] 14:00: [id number] 00 Elimination urinary Eliminatio Resolve 2015-082016-05-15 Moon incontinenc n d 14:11:00 Danilo aggarwal 14:11: [id number] 00 Elimination urinary Eliminatio Resolve 2015-082016-05-29 Moon incontinenc n d 13:42:00 Danilo aggarwal 13:42: [id number] 00 Respiratory lung sounds Respirator Resolve 2015-082016-07-03 Susan deficit y d 08-05 14:12:00 [place] 12:38: [id number] 00 Respiratory CPAP Respirator Unknown 2015-08 Moon treatments y 08-06 Carrasco in home 14:31: [id number] 00 Respiratory dyspnea Respirator Unknown 2015-08 Moon present y 08-06 [place]rasco 14:31: [id number] 00 Elimination urinary Eliminatio Resolve 2015-082016-06-06 Moon incontinenc n d 08-06 14:31:00 Carrasco e 14:31: [id number] 00 Integument skin Integument Active 2015-08 Moon integrity 09-02 Carrasco risk 14:12: [id number] 00 Elimination urinary Eliminatio Resolve 2015-082016-07-03 Moon incontinenc n d 09-02 14:12:00 Danilo e 14:12: [id number] 00 Elimination urinary Eliminatio Resolve 2015-082016-08-09 Moon incontinenc n d -14 10:32:00 Danilo aggarwal 12:00: [id number] 00 Respiratory lung sounds Respirator Resolve 2015-082016-08-21 Moon deficit y d 10-01 12:10:00 Danilo 10:43: [id number] 00 Cardio edema Cardiovasc Unknown Moon ular 08-09 Danilo 10:32: [id number] 00 Respiratory dyspnea Respirator Unknown Moon present y 08-09 Danilo 10:32: [id number] 00 Activity ADL Activity Resolve 2016-08-21 Moon assistance d 08-09 12:10:00 Danilo required 10:32: [id number] 00 Musculoskel transfer Musculoske Resolve 2016-09-25 Moon etal assistance letal d 08-09 11:45:00 Danilo required 10:32: [id number] 00 Musculoskel knowledge/s Musculoske Resolve 2016-09-25 Moon etal kill letal d 08-09 11:45:00 Danilo deficit: cg 10:32: [id number] 00 Nutrition nutritional Nutrition Resolve 2016-11-20 Moon restriction d 08-21 09:45:00 Danilo kirby 12:10: [id number] 00 Neuro depressive Neuro/Emot Resolve 2019-02-10 Moon feelings ion d 09-11 09:00:00 Danilo present 13:00: [id number] 00 Neuro anxiety Neuro/Emot Resolve 2019-02-10 Moon present ion d 09-11 09:00:00 Danilo 13:00: [id number] 00 Cardio edema Cardiovasc Resolve 2017-06-18 Moon ular d 10-07 11:47:00 Danilo 13:05: [id number] 00 Respiratory dyspnea Respirator Unknown Moon present y 10-07 Danilo 13:05: [id number] 00 Activity ADL Activity Resolve 2017-06-18 Moon assistance d 10-07 11:47:00 Danilo required 13:05: [id number] 00 Musculoskel transfer Musculoske Resolve 2016-10-23 Moon etal assistance letal d 10-07 11:30:00 Danilo required 13:05: [id number] 00 Respiratory treatments Respirator Resolve 2017-10-22 Susan ordered y d 10-30 12:00:00 [place] 11:00: [id number] 00 Nutrition knowledge/s Nutrition Resolve 2016-11-20 Susan kill d 10-30 09:45:00 [place] deficit: cg 11:00: [id number] 00 Respiratory dyspnea Respirator Unknown Susan present y 10-31 [place] 11:30: [id number] 00 Respiratory dyspnea Respirator Unknown Susan present y 11-13 [place] 13:45: [id number] 00 Respiratory dyspnea Respirator Unknown Purnima present y 11-27 Burgess 10:30: [id number] 00 Respiratory CPAP Respirator Unknown Purnima treatments y 4- Burgess in home 10:30: [id number] 00 Nutrition nutritional Nutrition Resolve 2017-05-21 Purnima restriction d 12-04 13:07:00 Burgess s 10:00: [id number] 00 Respiratory dyspnea Respirator Unknown Susan present y 12-11 [place] 12:15: [id number] 00 Test/Treatm tests Test/Injec Resolve 2017-12-31 Purnima ent ordered t/Rashard d 12-18 11:45:00 Burgess [id number] Respiratory dyspnea Respirator Unknown Susan present y 12-25 [place] 12:20: [id number] 00 Musculoskel transfer Musculoske Unknown Purnima etal assistance letal 01-01 Burgess required 09:45: [id number] 00 Musculoskel requires Musculoske Unknown Purnima etal human letal 01-01 Burgess assist to 09:45: [id number] leave home 00 Respiratory dyspnea Respirator Unknown Susan present y 01-08 [place] 11:50: [id number] 00 Respiratory lung sounds Respirator Unknown Susan deficit y 01-15 [place] 13:00: [id number] 00 Respiratory dyspnea Respirator Unknown Juliana present y 01-29 Wilbert 11:15: [id number] 00 Respiratory dyspnea Respirator Unknown Susan present y 02-19 [place] 10:38: [id number] 00 Cardio knowledge/s Cardiovasc Resolve 2017-09-30 Juliana kill ular d 03-05 11:00:00 Wilbert deficit: cg 12:13: [id number] 00 Respiratory dyspnea Respirator Unknown Susan present y 03-12 [place] 10:51: [id number] 00 Musculoskel requires Musculoske Unknown Juliana etal human letal 03-19 Wilbert assist to 11:56: [id number] leave home 00 Respiratory dyspnea Respirator Unknown Juliana present y 03-24 Wilbert 12:05: [id number] 00 Nutrition knowledge/s Nutrition Resolve 2017-05-21 Juliana kill d 03-24 13:07:00 Wilbert deficit: cg 12:05: [id number] 00 Respiratory dyspnea Respirator Unknown Tammee present y 04-02 Amina-Hor 11:38: an 00 Musculoskel requires Musculoske Resolve 2018-12-30 Juliana etal human letal d 04-02 09:56:00 Wilbert assist to 11:38: [id number] leave home 00 Respiratory dyspnea Respirator Unknown Susan present y 9 [place] 15:15: [id number] 00 Musculoskel transfer Musculoske Resolve 2018-12-30 Juliana etal assistance letal d 04-30 09:56:00 Wilbert required 13:23: [id number] 00 Respiratory dyspnea Respirator Unknown 2016-08 Susan present y 0- [place] 11:59: [id number] 00 Cardio knowledge/s Cardiovasc Resolve 2016-082017-09-30 [place] [...] clinically d 0-11 11:47:00 Malnoske significant 11:35: 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 Respiratory dyspnea Respirator Unknown 2016-08 [place] present y 0-18 [place] 13:07: RN 00 Nutrition knowledge/s Nutrition Resolve 2016-082017-05-21 [place] kill d 0-18 13:07:00 Malnoske deficit: pt 13:07: RN 00 Musculoskel requires Musculoske Resolve 2016-082018-12-30 [place] etal special letal d 0-18 09:56:00 Malnoske transportat 13:07: RN ion 00 Respiratory dyspnea Respirator Unknown 2016-08 Susan present y 0-25 [place] 13:00: [id number] 00 Nutrition nutritional Nutrition Resolve 2016-082017-12-17 [place] restriction d 0-26 12:29:00 Malnoske s 14:20: RN 00 Nutrition knowledge/s Nutrition Resolve 2016-082017-12-17 [place] kill d 0-26 12:29:00 Malnoske deficit: pt 14:20: RN 00 Elimination urinary Eliminatio Resolve 2016-082017-06-18 [place] incontinenc n d 0- 11:47:00 Mal[place]ke e 14:20: RN 00 Respiratory dyspnea Respirator Unknown 2016-08 Milagros present y 08-18 Alexandro Roya 12:53: [id number] 00 Respiratory dyspnea Respirator Resolve 2016-082018-01-28 Milagros present y d 09-01 11:42:00 Alexandro Roya 11:34: [id number] 00 Cardio edema Cardiovasc Resolve 2016-082018-12-30 [place] [...] 2017-09-30 Susan incontinenc n d 1- 11:00:00 [place] e 11:29: [id number] 00 Medication potential Meds Resolve 2018-03-25 [place] clinically d 2-21 11:00:00 Malnoske significant 09:50: 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 Respiratory oxygen Respirator Resolve 2018-01-28 [place] treatments y d 2-27 11:42:00 Malnoske in home 11:00: RN 00 Respiratory CPAP Respirator Resolve 2018-01-28 Susan treatments y d 3-14 11:42:00 [place] in home 12:20: [id number] 00 Elimination urinary Eliminatio Resolve 2017-10-22 [place] incontinenc n d 3-21 12:00:00 Malnoske e 12:00: RN 00 Elimination urinary Eliminatio Resolve 2017-12-17 [place] incontinenc n d 4-18 12:29:00 Malnoske e 10:37: RN 00 Medication oral med Meds Resolve 2018-03-25 Juliana assistance d 11-28 11:00:00 Wilbert required 14:17: [id number] 00 Endo/Marquis anti-coagul Endo/Marquis Resolve 2018-12-30 [place] ation d 12-31 09:56:00 Malnoske therapy 11:45: RN 00 Nutrition nutritional Nutrition Resolve 2018-06-17 [place] restriction d 12-31 10:01:00 Malnoske s 11:45: RN 00 Elimination urinary Eliminatio Resolve 2018-01-28 [place] incontinenc n d 12-31 11:42:00 Malnoske e 11:45: RN 00 Respiratory lung sounds Respirator Resolve 2019-02-10 Tiki deficit y d 01-28 09:00:00 Guidelli 11:42: [id number] 00 OT: Self self-care OT: Active Keshia Care deficit Self-Care 02-12 Jeison 13:00: [id number] 00 OT: Self knowledge/s OT: Active Keshia Care kill Self-Care 02-12 Jeison deficit: pt 13:00: [id number] 00 Respiratory oxygen Respirator Resolve 2019-02-10 Lori treatments y d 02-25 09:00:00 [place] in home 08:32: h [id number] 00 Elimination urinary Eliminatio Resolve 2019-01-13 Lori incontinenc n d 02-25 09:45:00 Yakov-Zos e 08:32: h [id number] 00 Respiratory dyspnea Respirator Resolve 2019-02-10 Juliana present y d 03-25 09:00:00 [place] 11:00: [id number] 00 Medication oral med Meds Resolve 2018-06-17 Lori assistance d 04-22 10:01:00 Yakov-Zos required 10:16: h [id number] 00 Nutrition nutritional Nutrition Resolve 2017-082019-01-13 Lori restriction d 09-15 09:45:00 Yakov-Zos s 10:25: h [id number] 00 Neuro impaired Neuro/Emot Resolve 2017-082019-07-20 Lori decision-ma ion d 2-20 10:28:00 [place] johny 10:55: h [id number] 00 Neuro behavior Neuro/Emot Resolve 2017-082019-07-20 Lori problems ion d 2-20 10:28:00 Yakov-Zos 10:55: h [id number] 00 Endo/Marquis glucose Endo/Marquis Resolve 2018-12-30 Laura testing d 2- 09:56:00 Violette, dependence 14:40: [id number] 00 Medication oral med Meds Resolve 2018-09-24 Laura assistance d 2- 14:40:00 Violette, required 14:40: [id number] 00 Endo/Marquis anti-coagul Endo/Marquis Resolve 2019-02-10 Juliana [...] 0-30 10:30:00 Stacey e 11:00: [employer] 00 [id number] Respiratory CPAP Respirator Resolve 2018-082019-07-20 [place] treatments [...] 2-26 10:22:00 Stacey e 09:00: [employer] 00 [id number] Musculoskel requires Musculoske Active [place] etal human [...] C 1,000 vit C 1,000 2014-08 No Orth 3000mg Unknown mg-rutin 50 mg-rutin 50 09-07 Jan LOPEZ-hesper mg-hesper 50 50 mg-bioflv-r mg-bioflv-r ose ose tablet,ext. tablet,ext. release release [place] 3 [place] 3 2014-08 No Roth 2400mg Unknown Fish Oil Fish Oil - Jan LOPEZ 684 684 mg-1,200 mg mg-1,200 mg capsule,del capsule,del ayed ayed release release Glucosamine Glucosamine 2014-08 No Roth 1500mg Unknown 500 mg 500 mg 09-07- Jan LOPEZ tablet tablet magnesium magnesium 2014-08 No Orth 1600mg Unknown oxide 400 oxide 400 09-21 [...] LOPEZ gel gel cyclobenzap cyclobenzap 2014-08 No [place] 1 tab Unknown rine 10 mg rine 10 mg 08-14 Can LOPEZ tablet tablet Dinesh Voltaren 1 Voltaren 1 2018- No [place] 4 grams Unknown % topical % topical 12-12 Can LOPEZ gel Dinesh MSM 1,000 MSM 1,000 No [place] 1 tab Unknown mg tablet mg tablet 10-23 Can LOPEZ milk milk 2016- No [place] 2 caps Unknown thistle 175 thistle 175 10-23 Can LOPEZ mg tablet mg tablet Dinesh milk milk No [place] 1 Unknown thistle 350 thistle 350 10-30 Can LOPEZ capusle mg capsule mg capsule Dinesh (350 mg traMADol 50 traMADol 50 No [place] 50-75mg Unknown mg tablet mg tablet 10-30 Jan LOPEZ aspirin 81 aspirin 81 No [place] 1 Unknown mg chewable mg chewable 11-29 Can LOPEZ tablet tablet tablet Dinesh (81 Mg) acetaminoph acetaminoph No [place] 2 Unknown en 500 mg en 500 mg 12-18 Can LOPEZ tablets tablet tablet Dinesh (1000mg ) busPIRone busPIRone 2016- No [place] 1 Unknown 10 mg 10 mg 01-01 Can LOPEZ tablet tablet Dinesh naproxen naproxen 2016- No [place] 1 tab Unknown 500 mg 500 mg 01-08 Can LOPEZ tablet,juan tablet,juan Dinesh yed release yed release busPIRone busPIRone No [place] 1 Unknown 10 mg 10 mg 01-01 Can LOPEZ tablet tablet Dinesh traMADol 50 traMADol 50 2018- No [place] 50-75mg Unknown mg tablet mg tablet 10-30 Can LOPEZ Vitamin D3 Vitamin D3 2016-08 No [place] 1,000 Unknown 1,000 unit 1,000 unit 0- Can LOPEZ Unit capsule capsule Dinesh levoFLOXaci levoFLOXaci 2017- No [place] 500mg Unknown n 500 mg n 500 mg 09-01 Can LOPEZ tablet tablet Dinesh naproxen naproxen No [place] 1 tab Unknown 500 mg 500 mg 01-08 Can LOPEZ tablet,juan tablet,juan Dinesh yed release yed release ALPRAZolam ALPRAZolam 2014-08 No [place] 1 tab Unknown 0.5 mg 0.5 mg 08-14 MDJan tablet tablet ginkgo ginkgo No [place] Unknown Unknown biloba 60 biloba 60 03-25 [...] tablet mg tablet n ashwagandha ashwagandha 2018-08 Yes Elsi Unknown Unknown 600mg 600mg 08-16 Ashley LOPEZ Vital Signs Vital Name Observation Time Observation Value Comments SYSTOLIC mm[Hg] 2019-09-09 18:10:15 124 mm[Hg] mm[Hg] Method: Sit DIASTOLIC mm[Hg] 2019-09-09 18:10:15 70 mm[Hg] mm[Hg] Method: Sit PULSE 2019-09-09 18:10:15 76 /min /min RESP RATE 2019-09-09 18:10:15 18 /min /min TEMP 2019-09-09 18:10:15 97.6 [degF] Procedures This patient has no known procedures. Results This patient has no known results.
--- OUTSIDE RECORDS SUMMARY | 2019-10-06 10:56 | XMS REPORT ---
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 [place] (current) (current) Malnoske use of use of RN aspirin aspirin Respiratory treatments Respirator Resolve 2014-082016-09-25 Carmelita ordered y d 1-11 11:45:00 Dale [id number] Safety knowledge/s Safety Resolve 2016-02-08 Kayleigh kill d 09-15 15:04:00 Sinnigen deficit: pt 15:30: [id number] Diagnoses knowledge/s Diagnoses Active Tammee kill 09-15 Amina-Hor deficit: pt 15:30: an 00 Pain frequent Pain Mgmt Resolve 2018-10-21 Carmelita pain d 10-10 11:00:00 Dale 14:30: [id number] 00 Pain knowledge/s Pain Mgmt Resolve 2015-10-11 Carmelita kill d 10-10 14:30:00 Dale deficit: cg 14:30: [id number] 00 Cardio hypertensio Cardiovasc Resolve 2016-09-25 Carmelita n ular d 10-10 11:45:00 Dale 14:30: [id number] 00 Cardio knowledge/s Cardiovasc Resolve 2016-09-25 Carmelita kill ular d 10-10 11:45:00 Dale deficit: cg 14:30: [id number] 00 Respiratory dyspnea Respirator Resolve 2017-06-18 Carmelita present y d 10-10 11:47:00 Dale 14:30: [id number] 00 Respiratory oxygen Respirator Resolve 2017-06-18 Carmelita treatments y d 10-10 11:47:00 Dale in home 14:30: [id number] 00 Respiratory lung sounds Respirator Resolve 2016-05-01 Carmelita deficit y d 10-10 14:30:00 Dale 14:30: [id number] 00 Respiratory CPAP Respirator Resolve 2017-06-18 Carmelita treatments y d 10-10 11:47:00 Dale in home 14:30: [id number] 00 Respiratory knowledge/s Respirator Resolve 2015-10-11 Carmelita kill y d 10-10 14:30:00 Dale deficit: cg 14:30: [id number] 00 Nutrition knowledge/s Nutrition Resolve 2015-10-11 Carmelita kill d 10-10 14:30:00 Dale deficit: cg 14:30: [id number] 00 Neuro anxiety Neuro/Emot Resolve 2016-02-08 Carmelita present ion d 10-10 15:04:00 Dale 14:30: [id number] 00 Neuro depressive Neuro/Emot Resolve 2016-02-08 Carmelita feelings ion d 10-10 15:04:00 Dale present 14:30: [id number] 00 Neuro knowledge/s Neuro/Emot Resolve 2016-02-08 Carmelita kill ion d 10-10 15:04:00 Dale deficit: pt 14:30: [id number] 00 Neuro knowledge/s Neuro/Emot Resolve 2016-02-08 Carmelita kill ion d 10-10 15:04:00 Dale deficit: cg 14:30: [id number] 00 Activity knowledge/s Activity Resolve 2015-10-11 Carmelita kill d 10-10 14:30:00 Dale deficit: cg 14:30: [id number] 00 Safety safety Safety Resolve 2015-10-11 Carmelita hazards d 10-10 14:30:00 Dale present 14:30: [id number] 00 Safety fall risk Safety Resolve 2015-10-11 Carmelita factor d 10-10 14:30:00 Dale present 14:30: [id number] 00 Safety risk for Safety Resolve 2015-10-11 Carmelita hospitaliza d 10-10 14:30:00 Dale tion 14:30: [id number] 00 Diagnoses knowledge/s Diagnoses Active Carmelita kill 10-10 Dale deficit: cg 14:30: [id number] 00 Musculoskel knowledge/s Musculoske Resolve 2015-10-11 Carmelita etal kill letal d 10-10 14:30:00 Dale deficit: cg 14:30: [id number] 00 Nutrition knowledge/s Nutrition Resolve 2016-09-25 Kayleigh kill d 10-12 11:45:00 Sinnigen deficit: cg 15:30: [id number] 00 Safety safety Safety Active Kayleigh hazards - Sinnigen present 15:30: [id number] 00 Safety fall risk Safety Active Kayleigh factor - Sinnigen present 15:30: [id number] 00 Safety risk for Safety Active Kayleigh hospitaliza - Sinnigen tion 15:30: [id number] 00 Cardio edema Cardiovasc Resolve 2016-09-25 Carmelita ular d 3-18 11:45:00 Dale 15:30: [id number] 00 Pain frequent Pain Mgmt Unknown Moon pain 12-05 Danilo 16:31: [id number] 00 Pain knowledge/s Pain Mgmt Resolve 2016-02-08 Moon kill d 12-05 15:04:00 Danilo deficit: cg 16:31: [id number] 00 Cardio knowledge/s Cardiovasc Unknown Moon kill ular 12-05 Danilo deficit: cg 16:31: [id number] 00 Respiratory knowledge/s Respirator Resolve 2015-12-06 Moon kill y d 12-05 16:31:00 Danilo deficit: cg 16:31: [id number] 00 Integument skin Integument Resolve 2016-02-08 Moon integrity d 12-05 15:04:00 Danilo risk 16:31: [id number] 00 Elimination urinary Eliminatio Resolve 2016-02-08 Moon incontinenc n d 12-05 15:04:00 Danilo e 16:31: [id number] 00 Activity knowledge/s Activity Resolve 2016-02-08 Moon kill d 12-05 15:04:00 Danilo deficit: cg 16:31: [id number] 00 Respiratory knowledge/s Respirator Resolve 2016-02-08 Moon kill y d 12-20 15:04:00 Danilo deficit: cg 15:49: [id number] 00 Respiratory knowledge/s Respirator Unknown 2016-02-08 Kayleigh kill y 01-10 15:04:00 Sinnigen deficit: pt 15:30: [id number] 00 Medication injectable Meds Resolve 2016-02-08 Moon med d 02-07 15:04:00 Danilo assistance 15:04: [id number] required 00 Cardio hypertensio Cardiovasc Unknown Moon n ular 02-22 Danilo 09:45: [id number] 00 Elimination urinary Eliminatio Resolve 2016-02-23 Moon incontinenc n d 02-22 09:45:00 Danilo aggarwal 09:45: [id number] 00 Elimination ostomy Eliminatio Resolve 2016-04-17 Moon present n d 02-22 11:53:00 Danilo 09:45: [id number] 00 Elimination urinary Eliminatio Resolve 2016-04-17 Susan incontinenc n d 03-20 11:53:00 Massac e 10:03: [id number] 00 Neuro anxiety Neuro/Emot Resolve 2016-08-21 Moon present ion d 04-05 12:10:00 Danilo 15:49: [id number] 00 Neuro depressive Neuro/Emot Resolve 2016-08-21 Moon feelings ion d 04-05 12:10:00 Danilo present 15:49: [id number] 00 Neuro knowledge/s Neuro/Emot Resolve 2016-08-21 Moon kill ion d 04-05 12:10:00 Danilo deficit: pt 15:49: [id number] 00 Neuro knowledge/s Neuro/Emot Resolve 2016-08-21 Moon kill ion d 04-05 12:10:00 Danilo deficit: cg 15:49: [id number] 00 Activity ADL Activity Resolve 2016-06-19 Moon assistance d 04-05 11:30:00 Danilo required 15:49: [id number] 00 Activity knowledge/s Activity Resolve 2016-05-01 Moon kill d 04-05 14:30:00 Danilo deficit: cg 15:49: [id number] 00 Elimination urinary Eliminatio Resolve 2016-05-01 Susan incontinenc n d 04-24 14:30:00 [place] e 15:00: [id number] 00 Elimination urinary Eliminatio Resolve 2016-05-01 Susan frequency n d 04-24 14:30:00 Massac 15:00: [id number] 00 Respiratory lung sounds Respirator Unknown 2015-08 Susan deficit y 0-05 Massac 14:00: [id number] 00 Elimination urinary Eliminatio Resolve 2015-082016-05-15 Moon incontinenc n d 14:11:00 Danilo aggarwal 14:11: [id number] 00 Elimination urinary Eliminatio Resolve 2015-082016-05-29 Moon incontinenc n d 13:42:00 Danilo aggarwal 13:42: [id number] 00 Respiratory lung sounds Respirator Resolve 2015-082016-07-03 Susan deficit y d 08-05 14:12:00 [place] 12:38: [id number] 00 Respiratory CPAP Respirator Unknown 2015-08 Moon treatments y 08-06 Carrasco in home 14:31: [id number] 00 Respiratory dyspnea Respirator Unknown 2015-08 Moon present y 08-06 Carrasco 14:31: [id number] 00 Elimination urinary Eliminatio Resolve 2015-082016-06-06 Moon incontinenc n d 08-06 14:31:00 Carrasco e 14:31: [id number] 00 Integument skin Integument Active 2015-08 Moon integrity 09-02 Carrasco risk 14:12: [id number] 00 Elimination urinary Eliminatio Resolve 2015-082016-07-03 Moon incontinenc n d 09-02 14:12:00 Danilo e 14:12: [id number] 00 Elimination urinary Eliminatio Resolve 2015-082016-08-09 Moon incontinenc n d -14 10:32:00 Danilo aggarwal 12:00: [id number] 00 Respiratory lung sounds Respirator Resolve 2015-082016-08-21 Moon deficit y d 10-01 12:10:00 Danilo 10:43: [id number] 00 Cardio edema Cardiovasc Unknown Moon ular 08-09 Danilo 10:32: [id number] 00 Respiratory dyspnea Respirator Unknown Moon present y 08-09 Danilo 10:32: [id number] 00 Activity ADL Activity Resolve 2016-08-21 Moon assistance d 08-09 12:10:00 Danilo required 10:32: [id number] 00 Musculoskel transfer Musculoske Resolve 2016-09-25 Moon etal assistance letal d 08-09 11:45:00 Danilo required 10:32: [id number] 00 Musculoskel knowledge/s Musculoske Resolve 2016-09-25 Moon etal kill letal d 08-09 11:45:00 Danilo deficit: cg 10:32: [id number] 00 Nutrition nutritional Nutrition Resolve 2016-11-20 Moon restriction d 08-21 09:45:00 Danilo kirby 12:10: [id number] 00 Neuro depressive Neuro/Emot Resolve 2019-02-10 Moon feelings ion d 09-11 09:00:00 Danilo present 13:00: [id number] 00 Neuro anxiety Neuro/Emot Resolve 2019-02-10 Moon present ion d 09-11 09:00:00 Danilo 13:00: [id number] 00 Cardio edema Cardiovasc Resolve 2017-06-18 Moon ular d 10-07 11:47:00 Danilo 13:05: [id number] 00 Respiratory dyspnea Respirator Unknown Moon present y 10-07 Danilo 13:05: [id number] 00 Activity ADL Activity Resolve 2017-06-18 Moon assistance d 10-07 11:47:00 Danilo required 13:05: [id number] 00 Musculoskel transfer Musculoske Resolve 2016-10-23 Moon etal assistance letal d 10-07 11:30:00 Danilo required 13:05: [id number] 00 Respiratory treatments Respirator Resolve 2017-10-22 Susan ordered y d 10-30 12:00:00 [place] 11:00: [id number] 00 Nutrition knowledge/s Nutrition Resolve 2016-11-20 Susan kill d 10-30 09:45:00 [place] deficit: cg 11:00: [id number] 00 Respiratory dyspnea Respirator Unknown Susan present y 10-31 [place] 11:30: [id number] 00 Respiratory dyspnea Respirator Unknown Susan present y 11-13 [place] 13:45: [id number] 00 Respiratory dyspnea Respirator Unknown Purnima present y 11-27 Burgess 10:30: [id number] 00 Respiratory CPAP Respirator Unknown Purnima treatments y 4- Burgess in home 10:30: [id number] 00 Nutrition nutritional Nutrition Resolve 2017-05-21 Purnima restriction d 12-04 13:07:00 Burgess s 10:00: [id number] 00 Respiratory dyspnea Respirator Unknown Susan present y 12-11 [place] 12:15: [id number] 00 Test/Treatm tests Test/Injec Resolve 2017-12-31 Purnima ent ordered t/Rashard d 12-18 11:45:00 Burgess [id number] Respiratory dyspnea Respirator Unknown Susan present y 12-25 [place] 12:20: [id number] 00 Musculoskel transfer Musculoske Unknown Purnima etal assistance letal 01-01 Burgess required 09:45: [id number] 00 Musculoskel requires Musculoske Unknown Purnima etal human letal 01-01 Burgess assist to 09:45: [id number] leave home 00 Respiratory dyspnea Respirator Unknown Susan present y 01-08 [place] 11:50: [id number] 00 Respiratory lung sounds Respirator Unknown Susan deficit y 01-15 [place] 13:00: [id number] 00 Respiratory dyspnea Respirator Unknown Juliana present y 01-29 Wilbert 11:15: [id number] 00 Respiratory dyspnea Respirator Unknown Susan present y 02-19 [place] 10:38: [id number] 00 Cardio knowledge/s Cardiovasc Resolve 2017-09-30 Juliana kill ular d 03-05 11:00:00 Wilbert deficit: cg 12:13: [id number] 00 Respiratory dyspnea Respirator Unknown Susan present y 03-12 [place] 10:51: [id number] 00 Musculoskel requires Musculoske Unknown Juliana etal human letal 03-19 Wilbert assist to 11:56: [id number] leave home 00 Respiratory dyspnea Respirator Unknown Juliana present y 03-24 Wilbert 12:05: [id number] 00 Nutrition knowledge/s Nutrition Resolve 2017-05-21 Juliana kill d 03-24 13:07:00 Wilbert deficit: cg 12:05: [id number] 00 Respiratory dyspnea Respirator Unknown Tammee present y 04-02 Amina-Hor 11:38: an 00 Musculoskel requires Musculoske Resolve 2018-12-30 Juliana etal human letal d 04-02 09:56:00 Wilbert assist to 11:38: [id number] leave home 00 Respiratory dyspnea Respirator Unknown Susan present y 9 [place] 15:15: [id number] 00 Musculoskel transfer Musculoske Resolve 2018-12-30 Juliana etal assistance letal d 04-30 09:56:00 Wilbert required 13:23: [id number] 00 Respiratory dyspnea Respirator Unknown 2016-08 Susan present y 0- [place] 11:59: [id number] 00 Cardio knowledge/s Cardiovasc Resolve 2016-082017-09-30 [place] [...] clinically d 0-11 11:47:00 Mal[place]ke significant 11:35: produce sorter 00 issue Respiratory dyspnea Respirator Unknown 2016-08 [place] present y 0-18 [place] 13:07: RN 00 Nutrition knowledge/s Nutrition Resolve 2016-082017-05-21 [place] kill d 0-18 13:07:00 [place] deficit: pt 13:07: RN 00 Musculoskel requires Musculoske Resolve 2016-082018-12-30 [place] etal special letal d 0-18 09:56:00 Malnoske transportat 13:07: RN ion 00 Respiratory dyspnea Respirator Unknown 2016-08 Susan present y 0-25 [place] 13:00: [id number] 00 Nutrition nutritional Nutrition Resolve 2016-082017-12-17 [place] restriction d 0-26 12:29:00 Malnoske s 14:20: RN 00 Nutrition knowledge/s Nutrition Resolve 2016-082017-12-17 [place] kill d 0-26 12:29:00 Mal[place] deficit: pt 14:20: RN 00 Elimination urinary Eliminatio Resolve 2016-082017-06-18 [place] incontinenc n d 0- 11:47:00 Mal[place]ke e 14:20: RN 00 Respiratory dyspnea Respirator Unknown 2016-08 Milagros present y 08-18 Alexandro Roya 12:53: [id number] 00 Respiratory dyspnea Respirator Resolve 2016-082018-01-28 Milagros present y d 09-01 11:42:00 Alexandro Roya 11:34: [id number] 00 Cardio edema Cardiovasc Resolve 2016-082018-12-30 [place] [...] 2017-09-30 Susan incontinenc n d 1- 11:00:00 [place] e 11:29: [id number] 00 Medication potential Meds Resolve 2018-03-25 [place] clinically d 2-21 11:00:00 Mal[place] significant 09:50: produce sorter 00 issue Respiratory oxygen Respirator Resolve 2018-01-28 [place] treatments y d 2-27 11:42:00 Malnoske in home 11:00: RN 00 Respiratory CPAP Respirator Resolve 2018-01-28 Susan treatments y d 3-14 11:42:00 [place] in home 12:20: [id number] 00 Elimination urinary Eliminatio Resolve 2017-10-22 [place] incontinenc n d 3-21 12:00:00 Malnoske e 12:00: RN 00 Elimination urinary Eliminatio Resolve 2017-12-17 [place] incontinenc n d 4-18 12:29:00 Malnoske e 10:37: RN 00 Medication oral med Meds Resolve 2018-03-25 Juliana assistance d 11-28 11:00:00 Wilbert required 14:17: [id number] 00 Endo/Marquis anti-coagul Endo/Marquis Resolve 2018-12-30 [place] ation d 12-31 09:56:00 Malnoske therapy 11:45: RN 00 Nutrition nutritional Nutrition Resolve 2018-06-17 [place] restriction d 12-31 10:01:00 Malnoske s 11:45: RN 00 Elimination urinary Eliminatio Resolve 2018-01-28 [place] incontinenc n d 12-31 11:42:00 Malnoske e 11:45: RN 00 Respiratory lung sounds Respirator Resolve 2019-02-10 Tiki deficit y d 01-28 09:00:00 Guidelli 11:42: [id number] 00 OT: Self self-care OT: Active Keshia Care deficit Self-Care 02-12 Jeison 13:00: [id number] 00 OT: Self knowledge/s OT: Active Keshia Care kill Self-Care 02-12 Jeison deficit: pt 13:00: [id number] 00 Respiratory oxygen Respirator Resolve 2019-02-10 Lori treatments y d 02-25 09:00:00 Swain-Zos in home 08:32: h [id number] 00 Elimination urinary Eliminatio Resolve 2019-01-13 Lori incontinenc n d 02-25 09:45:00 Yakov-Zos e 08:32: h [id number] 00 Respiratory dyspnea Respirator Resolve 2019-02-10 Juliana present y d 03-25 09:00:00 [place] 11:00: [id number] 00 Medication oral med Meds Resolve 2018-06-17 Lori assistance d 04-22 10:01:00 Yakov-Zos required 10:16: h [id number] 00 Nutrition nutritional Nutrition Resolve 2017-082019-01-13 Lori restriction d 09-15 09:45:00 Yakov-Zos s 10:25: h [id number] 00 Neuro impaired Neuro/Emot Resolve 2017-082019-07-20 Lori decision-ma ion d 2-20 10:28:00 Swain-Zos johny 10:55: h [id number] 00 Neuro behavior Neuro/Emot Resolve 2017-082019-07-20 Lori problems ion d 2-20 10:28:00 Yakov-Zos 10:55: h [id number] 00 Endo/Marquis glucose Endo/Marquis Resolve 2018-12-30 Laura testing d 2- 09:56:00 Violette, dependence 14:40: [id number] 00 Medication oral med Meds Resolve 2018-09-24 Laura assistance d 2- 14:40:00 Violette, required 14:40: [id number] 00 Endo/Marquis anti-coagul Endo/Marquis Resolve 2019-02-10 Juliana [...] 0-30 10:30:00 Stacey e 11:00: [employer] 00 [id number] Respiratory CPAP Respirator Resolve 2018-082019-07-20 [place] treatments [...] 2-26 10:22:00 Stacey e 09:00: [employer] 00 [id number] Musculoskel requires Musculoske Active [place] etal human [...] mg-bioflv-r ose ose tablet,ext. tablet,ext. release release [place] 3 [place] 3 2014-08 No Roth 2400mg Unknown Fish [...] LOPEZ gel gel cyclobenzap cyclobenzap 2014-08 No [place] 1 tab Unknown rine 10 mg rine 10 mg 08-14 Can LOPEZ tablet tablet Dinesh Voltaren 1 Voltaren 1 2018- No [place] 4 grams Unknown % topical % topical 12-12 Can LOPEZ gel Dinesh MSM 1,000 MSM 1,000 No [place] 1 tab Unknown mg tablet mg tablet 10-23 Can LOPEZ milk milk 2016- No [place] 2 caps Unknown thistle 175 thistle 175 10-23 Can LOPEZ mg tablet mg tablet Dinesh milk milk No [place] 1 Unknown thistle 350 thistle 350 10-30 Can LOPEZ capusle mg capsule mg capsule Dinesh (350 mg traMADol 50 traMADol 50 No Roth 50-75mg Unknown mg tablet mg tablet 10-30 aJn LOPEZ aspirin 81 aspirin 81 No [place] 1 Unknown mg chewable mg chewable 11-29 Can LOPEZ tablet tablet tablet Dinesh (81 Mg) acetaminoph acetaminoph No [place] 2 Unknown en 500 mg en 500 mg 12-18 Can LOPEZ tablets tablet tablet Dinesh (1000mg ) busPIRone busPIRone 2016- No [place] 1 Unknown 10 mg 10 mg 01-01 Can LOPEZ tablet tablet Dinesh naproxen naproxen 2016- No [place] 1 tab Unknown 500 mg 500 mg 01-08 Can LOPEZ tablet,juan tablet,juan Dinesh yed release yed release busPIRone busPIRone No [place] 1 Unknown 10 mg 10 mg 01-01 Can LOPEZ tablet tablet Dinesh traMADol 50 traMADol 50 2018- No [place] 50-75mg Unknown mg tablet mg tablet 10-30 Can LOPEZ Vitamin D3 Vitamin D3 2016-08 No [place] 1,000 Unknown 1,000 unit 1,000 unit 0 Can LOPEZ Unit capsule capsule Dinesh levoFLOXaci levoFLOXaci 2017- No [place] 500mg Unknown n 500 mg n 500 mg 09-01 Can LOPEZ tablet tablet Dinesh naproxen naproxen No [place] 1 tab Unknown 500 mg 500 mg 01-08 Can LOPEZ tablet,juan tablet,juan Dinesh yed release yed release ALPRAZolam ALPRAZolam 2014-08 No Roth 1 tab Unknown 0.5 mg 0.5 mg 08-14 MDJan tablet tablet ginkgo ginkgo No [place] Unknown Unknown biloba 60 biloba 60 03-25 [...] mg tablet n ashwagandha ashwagandha 2018-08 Yes [place] Unknown Unknown 600mg 600mg 08-16 Ashley LOPEZ Vital Signs Vital Name Observation Time Observation Value Comments SYSTOLIC mm[Hg] 2019-08-25 18:10:00 132 mm[Hg] mm[Hg] Method: Sit DIASTOLIC mm[Hg] 2019-08-25 18:10:00 86 mm[Hg] mm[Hg] Method: Sit PULSE 2019-08-25 18:10:00 94 /min /min RESP RATE 2019-08-25 18:10:00 18 /min /min TEMP 2019-08-25 18:10:00 98.3 [degF] Procedures This patient has no known procedures. Results This patient has no known results.
--- OUTSIDE RECORDS SUMMARY | 2019-10-06 10:56 | XMS REPORT | Continuity of Care Document ---
:1945 External Reference #:[id number] Author Name Silverio Azevedo M.D. (transmitted by agent of provider Lila Lyon) Address [address] [address] Care Team Providers Name Role Phone Mendoza Torres MD - Urology Care Team Information Component Lab Tech [phone] Malachi Wood MD - Orthopaedic Care Team Information Component Lab Tech Surgery Suma Craven MD - Orthopaedic Care Team Information Component Lab Tech [phone] Surgery Ashley Calzada MD - Internal Care Team Information Component Lab Tech Medicine Problems Active Problems Provider Date Chronic [...] Craven MD Onset: 08/12/2017 Hypersomnia Maria Teresa Doimnguez DNP, RN, Onset: 08/19/2017 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 Onset: [...] Use Denies Drug Use Smoking Status Reviewed: 09/15/19 Patient is a former 1 PPD x [...] days Bedpan 1units Lakshmi Magaña MD 06/18/2019 [facility] Com[place] Bedside drop arm bedside 1units R32 Jennifer Braga MD 06/18/2019 [facility] commode, bariatric commode N39.42 E66.01 OT/PT Wheelchair Ashley Calzada, 05/20/2019 Mobility Evaluation M.D. Nystop apply to affected 180gm Ashley Calzada, 02/02/2019 046090Mmgx/GM area twice a day M.D. Powder for [...] G56.03 DANNIELLE Butler 2017 Back/Adjustable directed 99: [facility] lifetime use heavy duty bench E66.01 Z96.611 Latex Extra Large use daily as needed Carlos Langford, 09/26/2017 Gloves Cindy Vitamin D High Potency 1 tab daily [...] Jey Elise 2014 Glucose Monitoring daily e11.9 10/4/17 Cindy Duron,FACP System Device Vitamin C 3 tabs by mouth 90tabs Jan Roth, 07/05/2015 1000mg Tablets every day M.D. Freestyle Lite Test Test twice a day 100units E11.40 Ashley Calzada, 04/25 Strip M.DJacinda Wrist Brace left wrist brace, 1units Jey Elise 03/28/2015 size XL Cindy Duron,FACP Lift Chair lift chair, dx Jan Roth, 02/06/2015 722.90 M.D. Rolling Tray Rolling tray to fit Jan Roth, 02/06/2015 1 over her M.D. 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 Tablets Disposable Underpads use as needed diag 180units N39.46 [place] [employer], 07/13/2014 Super Size 30"X36" 788.30 M.D. 30"X36" [facility] N39.3 Restasis instill 1 drop in 60units [...] 1 tab PO daily 7tabs E66.01 Ashley Elsi, 06/16/2019 - 8-90mg for a week M.D. 09/09/2019 Tablets ER 12HR Repair To Current Dx: g56.03 1units E66.01 Ashley Elsi, 05/19/2019 - Wheelchair ;e66.01;m18 M.D. 07/29/2019 M18.0 M17.9 Medications Administered in Office Medication SIG Qnty Indications Ordering Provider Date Celestone 3 mg and 3mg Jaquan Myers MD 06/07/2016 Injection Triamcinolone (Kenalog) Suma Craven MD 06/28/2015 Injection Triamcinolone (Kenalog) Suma Craven MD 06/28/2015 Injection Immunizations CPT Code Status Date Vaccine Lot # [id number] Given 04/02/2017 Tetanus And Diptheria (Td) For Adult Use [id number] Preservative Free 46220 Given 06/20/2016 Pneumonia Vaccine [id number] Given 09/16/2014 Pneumococcal Conjugate Vaccine 13 Valent For [id number] Intramuscular Use 47388 Refused 06/03/2018 Influenza Virus Vaccine, Quadrivalent, Split, Preservative Free Vital Signs Date Vital Result Comment 09/15/2019 1:32pm Height 65.5 inches 5'5.50" pt unable to stand Weight 378.00 lb per pt Heart Rate 88 /min left radial BP Systolic Sitting 138 mmHg Lue, large cuff BP Diastolic Sitting 74 mmHg Lue, large cuff BMI (Body Mass Index) 61.9 kg/m2 09/15/2019 1:15pm Height 65.5 inches 5'5.50" pt unable to stand Weight 378.00 lb per pt Heart Rate 88 /min left radial BP Systolic Sitting 138 mmHg Lue, large cuff BP Diastolic Sitting 74 mmHg Lue, large cuff BMI (Body Mass Index) 61.9 kg/m2 Ejection Fraction 72% nuclear lexiscan myoview 01/15/19 Results Test Acquired Date Facility Test Result H/L Range Note Order 09/09/2019 [facility] Cologuard <pending> [address] [place] [address] [phone] Urine 07/16/2019 [facility] Ur Microalbumin < 15.[address] (mg/L) mg/L Random [place], [place] [id number] [phone] Urine Creatinine 17.10 mg/dL Urine Microalbumin/Creatinine TNP <31 1 Laboratory test 06/09/2019 [facility] Hemoglobin A1c 6.2 5-7 finding Laboratory test 04/30/2019 [facility] B-Type 49 pg/mL <=[address] [place] [address] Peptide BNP [phone] CBC Auto Diff 04/30/2019 [facility] White Blood Count 6.3 Normal 3.5-10.[address] 10^3/[place] [address] [phone] Red Blood Count 4.33 10^6/uL Normal 3.70-4.87 [...] Blood Cells % 0.2 Comp Metabolic 04/30/2019 [facility] Sodium 139 mmol/L Normal 135-[address] [place] [address] [phone] Potassium 4.3 mmol/L Normal 3.5-5.0 Chloride 103 [...] 121.2 >60 2 Urine Culture And 04/29/2019 [facility] Urine Culture SEE RESULT [address] [place] [address] [phone] 1 Unable to calculate due to low [...] [address]: Irma Balbuena MD Acct: [id number] Unit: [id number] AGE: 74 Location: [facility] Re04/29/19 SEX: F Status: REG REF SPEC: [id number] CHANTELLE: 04/29/19-1099 [facility] DR: Irma Balbuena MD REQ: [id number] RECD: 04/30/19 STATUS: COMP _ SOURCE: URINE SPDESC: ORDERED: Urine Culture Urine Source: Random Procedure Result Reported Site Urine Culture Final 05/01/19- 1224 ML No Growth (<1,000 CFU/mL) * ML - Main Lab . END OF REPORT DEPARTMENT OF PATHOLOGY, [address] [place] [address] Misael Schaefer M.D. Director [facility] # [id number] Procedures Date Code Description Status 09/15/2019 38668 EKG Tracing & Interpretation Completed 02/03/2019 [id number] Mammogram Completed 06/17/2018 [id number] Diabetic Retinal Eye Exam Completed 02/01/2013 [id number] Colonoscopy Completed 08/04/2004 [id number] Mammogram Completed Medical Devices Description No Information Available Encounters Type Date Location Provider Dx Diagnosis Office Visit 06/09/2019 [facility] Ashley Calzada, E11.40 Type 2 diabetes 2:00p Medicine - Joselineob Cindy mellitus with diabetic neuropathy, unsp E66.01 Morbid (severe) obesity due to excess calories Z68.44 Body mass index (BMI) 60.0-69.9, adult Office Visit 04/26/2019 3:00p [facility] Kacy SJacinda I48.0 Paroxysmal atrial Foster, N.P. fibrillation E66.01 Morbid (severe) obesity due to excess calories R06.00 Dyspnea, unspecified I10 Essential (primary) hypertension Z68.44 Body mass index (BMI) 60.0-69.9, adult Assessments Date Code Description Provider 09/15/2019 I48.0 Paroxysmal atrial fibrillation Silverio Azevedo M.D. 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 calories 09/09/2019 E11.40 Type 2 diabetes mellitus with [...] N.P. 04/26/2019 I10 Essential (primary) hypertension Kacy Oliver N.P. 04/26/2019 Z68.44 Body mass index (BMI) 60.0-69.9, adult Kacy Oliver, N.P. Plan of Treatment No Information Available Functional Status Description No Information Available Mental Status Description No Information Available Referrals Refer to Reason for Referral Status Appt Date Solution Manager Dermatology Created [address] [place] [phone]
--- OUTSIDE RECORDS SUMMARY | 2019-10-06 10:56 | XMS REPORT ---
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 [place] (current) (current) [place] use of use of RN aspirin aspirin Respiratory treatments Respirator Resolve 2014-082016-09-25 Carmelita ordered y d 1-11 11:45:00 Dale [id number] Safety knowledge/s Safety Resolve 2016-02-08 Kayleigh kill d 09-15 15:04:00 Sinnigen deficit: pt 15:30: [id number] Diagnoses knowledge/s Diagnoses Active Tammee kill 09-15 [place] deficit: pt 15:30: an 00 Pain frequent Pain Mgmt Resolve 2018-10-21 Carmelita pain d 10-10 11:00:00 Dale 14:30: [id number] 00 Pain knowledge/s Pain Mgmt Resolve 2015-10-11 Carmelita kill d 10-10 14:30:00 Dale deficit: cg 14:30: [id number] 00 Cardio hypertensio Cardiovasc Resolve 2016-09-25 Carmelita n ular d 10-10 11:45:00 Dale 14:30: [id number] 00 Cardio knowledge/s Cardiovasc Resolve 2016-09-25 Carmelita kill ular d 10-10 11:45:00 Dale deficit: cg 14:30: [id number] 00 Respiratory dyspnea Respirator Resolve 2017-06-18 Carmelita present y d 10-10 11:47:00 Dale 14:30: [id number] 00 Respiratory oxygen Respirator Resolve 2017-06-18 Carmelita treatments y d 10-10 11:47:00 Dale in home 14:30: [id number] 00 Respiratory lung sounds Respirator Resolve 2016-05-01 Carmelita deficit y d 10-10 14:30:00 Dale 14:30: [id number] 00 Respiratory CPAP Respirator Resolve 2017-06-18 Carmelita treatments y d 10-10 11:47:00 Dale in home 14:30: [id number] 00 Respiratory knowledge/s Respirator Resolve 2015-10-11 Carmelita kill y d 10-10 14:30:00 Dale deficit: cg 14:30: [id number] 00 Nutrition knowledge/s Nutrition Resolve 2015-10-11 Carmelita kill d 10-10 14:30:00 Dale deficit: cg 14:30: [id number] 00 Neuro anxiety Neuro/Emot Resolve 2016-02-08 Carmelita present ion d 10-10 15:04:00 Dale 14:30: [id number] 00 Neuro depressive Neuro/Emot Resolve 2016-02-08 Carmelita feelings ion d 10-10 15:04:00 Dale present 14:30: [id number] 00 Neuro knowledge/s Neuro/Emot Resolve 2016-02-08 Carmelita kill ion d 10-10 15:04:00 Dale deficit: pt 14:30: [id number] 00 Neuro knowledge/s Neuro/Emot Resolve 2016-02-08 Carmelita kill ion d 10-10 15:04:00 Dale deficit: cg 14:30: [id number] 00 Activity knowledge/s Activity Resolve 2015-10-11 Carmelita kill d 10-10 14:30:00 Dale deficit: cg 14:30: [id number] 00 Safety safety Safety Resolve 2015-10-11 Carmelita hazards d 10-10 14:30:00 Dale present 14:30: [id number] 00 Safety fall risk Safety Resolve 2015-10-11 Carmelita factor d 10-10 14:30:00 Dale present 14:30: [id number] 00 Safety risk for Safety Resolve 2015-10-11 Carmelita hospitaliza d 10-10 14:30:00 Dale tion 14:30: [id number] 00 Diagnoses knowledge/s Diagnoses Active Carmelita kill 10-10 Dale deficit: cg 14:30: [id number] 00 Musculoskel knowledge/s Musculoske Resolve 2015-10-11 Carmelita etal kill letal d 10-10 14:30:00 Dale deficit: cg 14:30: [id number] 00 Nutrition knowledge/s Nutrition Resolve 2016-09-25 Kayleigh kill d 10-12 11:45:00 [place]innigen deficit: cg 15:30: [id number] 00 Safety safety Safety Active Kayleigh hazards - Sinnigen present 15:30: [id number] 00 Safety fall risk Safety Active Kayleigh factor - Sinnigen present 15:30: [id number] 00 Safety risk for Safety Active Kayleigh hospitaliza - Sinnigen tion 15:30: [id number] 00 Cardio edema Cardiovasc Resolve 2016-09-25 Carmelita ular d 3-18 11:45:00 Dale 15:30: [id number] 00 Pain frequent Pain Mgmt Unknown Moon pain 12-05 Danilo 16:31: [id number] 00 Pain knowledge/s Pain Mgmt Resolve 2016-02-08 Moon kill d 12-05 15:04:00 Danilo deficit: cg 16:31: [id number] 00 Cardio knowledge/s Cardiovasc Unknown Moon kill ular 12-05 Danilo deficit: cg 16:31: [id number] 00 Respiratory knowledge/s Respirator Resolve 2015-12-06 Moon kill y d 12-05 16:31:00 Danilo deficit: cg 16:31: [id number] 00 Integument skin Integument Resolve 2016-02-08 Moon integrity d 12-05 15:04:00 Danilo risk 16:31: [id number] 00 Elimination urinary Eliminatio Resolve 2016-02-08 Moon incontinenc n d 12-05 15:04:00 Danilo e 16:31: [id number] 00 Activity knowledge/s Activity Resolve 2016-02-08 Moon kill d 12-05 15:04:00 Danilo deficit: cg 16:31: [id number] 00 Respiratory knowledge/s Respirator Resolve 2016-02-08 Moon kill y d 12-20 15:04:00 Danilo deficit: cg 15:49: [id number] 00 Respiratory knowledge/s Respirator Unknown 2016-02-08 Kayleigh kill y 01-10 15:04:00 Sinnigen deficit: pt 15:30: [id number] 00 Medication injectable Meds Resolve 2016-02-08 Moon med d 02-07 15:04:00 Danilo assistance 15:04: [id number] required 00 Cardio hypertensio Cardiovasc Unknown Moon n ular 02-22 Danilo 09:45: [id number] 00 Elimination urinary Eliminatio Resolve 2016-02-23 Moon incontinenc n d 02-22 09:45:00 Danilo aggarwal 09:45: [id number] 00 Elimination ostomy Eliminatio Resolve 2016-04-17 Moon present n d 02-22 11:53:00 Danilo 09:45: [id number] 00 Elimination urinary Eliminatio Resolve 2016-04-17 Susan incontinenc n d 03-20 11:53:00 [place] e 10:03: [id number] 00 Neuro anxiety Neuro/Emot Resolve 2016-08-21 Moon present ion d 04-05 12:10:00 Danilo 15:49: [id number] 00 Neuro depressive Neuro/Emot Resolve 2016-08-21 Moon feelings ion d 04-05 12:10:00 Danilo present 15:49: [id number] 00 Neuro knowledge/s Neuro/Emot Resolve 2016-08-21 Moon kill ion d 04-05 12:10:00 Danilo deficit: pt 15:49: [id number] 00 Neuro knowledge/s Neuro/Emot Resolve 2016-08-21 Moon kill ion d 04-05 12:10:00 Danilo deficit: cg 15:49: [id number] 00 Activity ADL Activity Resolve 2016-06-19 Moon assistance d 04-05 11:30:00 Danilo required 15:49: [id number] 00 Activity knowledge/s Activity Resolve 2016-05-01 Moon kill d 04-05 14:30:00 Danilo deficit: cg 15:49: [id number] 00 Elimination urinary Eliminatio Resolve 2016-05-01 Susan incontinenc n d 04-24 14:30:00 [place] e 15:00: [id number] 00 Elimination urinary Eliminatio Resolve 2016-05-01 Susan frequency n d 04-24 14:30:00 [place]acham 15:00: [id number] 00 Respiratory lung sounds Respirator Unknown 2015-08 Susan deficit y 0-05 [place]acham 14:00: [id number] 00 Elimination urinary Eliminatio Resolve 2015-082016-05-15 Moon incontinenc n d 14:11:00 Danilo aggarwal 14:11: [id number] 00 Elimination urinary Eliminatio Resolve 2015-082016-05-29 Moon incontinenc n d 13:42:00 Danilo aggarwal 13:42: [id number] 00 Respiratory lung sounds Respirator Resolve 2015-082016-07-03 Susan deficit y d 08-05 14:12:00 [place] 12:38: [id number] 00 Respiratory CPAP Respirator Unknown 2015-08 Moon treatments y 08-06 Carrasco in home 14:31: [id number] 00 Respiratory dyspnea Respirator Unknown 2015-08 Moon present y 08-06 [place] 14:31: [id number] 00 Elimination urinary Eliminatio Resolve 2015-082016-06-06 Moon incontinenc n d 08-06 14:31:00 [place]ras[place] e 14:31: [id number] 00 Integument skin Integument Active 2015-08 Moon integrity 09-02 Carrasco risk 14:12: [id number] 00 Elimination urinary Eliminatio Resolve 2015-082016-07-03 Moon incontinenc n d 09-02 14:12:00 Danilo e 14:12: [id number] 00 Elimination urinary Eliminatio Resolve 2015-082016-08-09 Moon incontinenc n d -14 10:32:00 Danilo aggarwal 12:00: [id number] 00 Respiratory lung sounds Respirator Resolve 2015-082016-08-21 Moon deficit y d 10-01 12:10:00 Danilo 10:43: [id number] 00 Cardio edema Cardiovasc Unknown Moon ular 08-09 Danilo 10:32: [id number] 00 Respiratory dyspnea Respirator Unknown Moon present y 08-09 Danilo 10:32: [id number] 00 Activity ADL Activity Resolve 2016-08-21 Moon assistance d 08-09 12:10:00 Danilo required 10:32: [id number] 00 Musculoskel transfer Musculoske Resolve 2016-09-25 Moon etal assistance letal d 08-09 11:45:00 Danilo required 10:32: [id number] 00 Musculoskel knowledge/s Musculoske Resolve 2016-09-25 Moon etal kill letal d 08-09 11:45:00 Danilo deficit: cg 10:32: [id number] 00 Nutrition nutritional Nutrition Resolve 2016-11-20 Moon restriction d 08-21 09:45:00 Danilo kirby 12:10: [id number] 00 Neuro depressive Neuro/Emot Resolve 2019-02-10 Moon feelings ion d 09-11 09:00:00 Danilo present 13:00: [id number] 00 Neuro anxiety Neuro/Emot Resolve 2019-02-10 Moon present ion d 09-11 09:00:00 Danilo 13:00: [id number] 00 Cardio edema Cardiovasc Resolve 2017-06-18 Moon ular d 10-07 11:47:00 Danilo 13:05: [id number] 00 Respiratory dyspnea Respirator Unknown Moon present y 10-07 Danilo 13:05: [id number] 00 Activity ADL Activity Resolve 2017-06-18 Moon assistance d 10-07 11:47:00 Danilo required 13:05: [id number] 00 Musculoskel transfer Musculoske Resolve 2016-10-23 Moon etal assistance letal d 10-07 11:30:00 Danilo required 13:05: [id number] 00 Respiratory treatments Respirator Resolve 2017-10-22 Susan ordered y d 10-30 12:00:00 [place] 11:00: [id number] 00 Nutrition knowledge/s Nutrition Resolve 2016-11-20 Susan kill d 10-30 09:45:00 [place] deficit: cg 11:00: [id number] 00 Respiratory dyspnea Respirator Unknown Susan present y 10-31 [place] 11:30: [id number] 00 Respiratory dyspnea Respirator Unknown Susan present y 11-13 [place] 13:45: [id number] 00 Respiratory dyspnea Respirator Unknown Purnima present y 11-27 Burgess 10:30: [id number] 00 Respiratory CPAP Respirator Unknown Purnima treatments y 4- Burgess in home 10:30: [id number] 00 Nutrition nutritional Nutrition Resolve 2017-05-21 Purnima restriction d 12-04 13:07:00 Burgess s 10:00: [id number] 00 Respiratory dyspnea Respirator Unknown Susan present y 12-11 [place] 12:15: [id number] 00 Test/Treatm tests Test/Injec Resolve 2017-12-31 Purnima ent ordered t/Rashard d 12-18 11:45:00 Burgess [id number] Respiratory dyspnea Respirator Unknown Susan present y 12-25 [place] 12:20: [id number] 00 Musculoskel transfer Musculoske Unknown Purnima etal assistance letal 01-01 Burgess required 09:45: [id number] 00 Musculoskel requires Musculoske Unknown Purnima etal human letal 01-01 Burgess assist to 09:45: [id number] leave home 00 Respiratory dyspnea Respirator Unknown Susan present y 01-08 [place] 11:50: [id number] 00 Respiratory lung sounds Respirator Unknown Susan deficit y 01-15 [place]am 13:00: [id number] 00 Respiratory dyspnea Respirator Unknown Juliana present y 01-29 Wilbert 11:15: [id number] 00 Respiratory dyspnea Respirator Unknown Susan present y 02-19 [place] 10:38: [id number] 00 Cardio knowledge/s Cardiovasc Resolve 2017-09-30 Juliana kill ular d 03-05 11:00:00 Wilbert deficit: cg 12:13: [id number] 00 Respiratory dyspnea Respirator Unknown Susan present y 03-12 [place] 10:51: [id number] 00 Musculoskel requires Musculoske Unknown Juliana etal human letal 03-19 Wilbert assist to 11:56: [id number] leave home 00 Respiratory dyspnea Respirator Unknown Juliana present y 03-24 Wilbert 12:05: [id number] 00 Nutrition knowledge/s Nutrition Resolve 2017-05-21 Juliana kill d 03-24 13:07:00 Wilbert deficit: cg 12:05: [id number] 00 Respiratory dyspnea Respirator Unknown Tammee present y 04-02 Amina-Hor 11:38: an 00 Musculoskel requires Musculoske Resolve 2018-12-30 Juliana etal human letal d 04-02 09:56:00 Wilbert assist to 11:38: [id number] leave home 00 Respiratory dyspnea Respirator Unknown Susan present y 9 [place] 15:15: [id number] 00 Musculoskel transfer Musculoske Resolve 2018-12-30 Juliana etal assistance letal d 04-30 09:56:00 Wilbert required 13:23: [id number] 00 Respiratory dyspnea Respirator Unknown 2016-08 Susan present y 0- [place]am 11:59: [id number] 00 Cardio knowledge/s Cardiovasc Resolve 2016-082017-09-30 [place] kill ular d 0-11 11:00:00 [place] deficit: pt 11:35: RN 00 Cardio hypertensio Cardiovasc Resolve 2016-082017-06-18 [place] n ular d 0-11 11:47:00 [place] 11:35: RN 00 Elimination urinary Eliminatio Resolve 2016-082017-05-21 [place] incontinenc n d 0-11 13:07:00 [place] e 11:35: RN 00 Elimination bowel Eliminatio Resolve 2016-082017-05-21 [place] incontinenc n d 0-11 13:07:00 [place] e 11:35: RN 00 Medication potential Meds Resolve 2016-082017-06-18 [place] clinically d 0-11 11:47:00 [place]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 Respiratory dyspnea Respirator Unknown 2016-08 [place] present y 0-18 [place] 13:07: RN 00 Nutrition knowledge/s Nutrition Resolve 2016-082017-05-21 [place] kill d 0-18 13:07:00 [place] deficit: pt 13:07: RN 00 Musculoskel requires Musculoske Resolve 2016-082018-12-30 [place] etal special letal d 0-18 09:56:00 [place] transportat 13:07: RN ion 00 Respiratory dyspnea Respirator Unknown 2016-08 Susan present y 0-25 [place]am 13:00: [id number] 00 Nutrition nutritional Nutrition Resolve 2016-082017-12-17 [place] restriction d 0-26 12:29:00 [place] s 14:20: RN 00 Nutrition knowledge/s Nutrition Resolve 2016-082017-12-17 [place] kill d 0-26 12:29:00 [place] deficit: pt 14:20: RN 00 Elimination urinary Eliminatio Resolve 2016-082017-06-18 [place] incontinenc n d 0- 11:47:00 [place] e 14:20: RN 00 Respiratory dyspnea Respirator Unknown 2016-08 Milagros present y 08-18 Alexandro Roya 12:53: [id number] 00 Respiratory dyspnea Respirator Resolve 2016-082018-01-28 Milagros present y d 09-01 11:42:00 Alexandro Roya 11:34: [id number] 00 Cardio edema Cardiovasc Resolve 2016-082018-12-30 [place] [...] 2017-09-30 Susan incontinenc n d 1- 11:00:00 [place] e 11:29: [id number] 00 Medication potential Meds Resolve 2018-03-25 [place] clinically d 2-21 11:00:00 [place] 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 Respiratory oxygen Respirator Resolve 2018-01-28 [place] treatments y d 2-27 11:42:00 [place] in home 11:00: RN 00 Respiratory CPAP Respirator Resolve 2018-01-28 Susan treatments y d 3-14 11:42:00 [place] in home 12:20: [id number] 00 Elimination urinary Eliminatio Resolve 2017-10-22 [place] incontinenc n d 3-21 12:00:00 [place] e 12:00: RN 00 Elimination urinary Eliminatio Resolve 2017-12-17 [place] incontinenc n d 4-18 12:29:00 [place] e 10:37: RN 00 Medication oral med Meds Resolve 2018-03-25 Juliana assistance d 11-28 11:00:00 Wilbert required 14:17: [id number] 00 Endo/Marquis anti-coagul Endo/Marquis Resolve 2018-12-30 [place] ation d 12-31 09:56:00 [place] therapy 11:45: RN 00 Nutrition nutritional Nutrition Resolve 2018-06-17 [place] restriction d 12-31 10:01:00 [place] s 11:45: RN 00 Elimination urinary Eliminatio Resolve 2018-01-28 [place] incontinenc n d 12-31 11:42:00 [place] e 11:45: RN 00 Respiratory lung sounds Respirator Resolve 2019-02-10 Tiki deficit y d 01-28 09:00:00 Guidelli 11:42: [id number] 00 OT: Self self-care OT: Active Keshia Care deficit Self-Care 02-12 Jeison 13:00: [id number] 00 OT: Self knowledge/s OT: Active Keshia Care kill Self-Care 02-12 Jeison deficit: pt 13:00: [id number] 00 Respiratory oxygen Respirator Resolve 2019-02-10 Lori treatments y d 02-25 09:00:00 [place] in home 08:32: h [id number] 00 Elimination urinary Eliminatio Resolve 2019-01-13 Lori incontinenc n d 02-25 09:45:00 Yakov-Zos e 08:32: h [id number] 00 Respiratory dyspnea Respirator Resolve 2019-02-10 Juliana present y d 03-25 09:00:00 Denny 11:00: [id number] 00 Medication oral med Meds Resolve 2018-06-17 Lori assistance d 04-22 10:01:00 Yakov-Zos required 10:16: h [id number] 00 Nutrition nutritional Nutrition Resolve 2017-082019-01-13 Lori restriction d 09-15 09:45:00 [place] s 10:25: h [id number] 00 Neuro impaired Neuro/Emot Resolve 2017-082019-07-20 Lori decision-ma ion d 2-20 10:28:00 Yakov-Zos johny 10:55: h [id number] 00 Neuro behavior Neuro/Emot Resolve 2017-082019-07-20 Lori problems ion d 2-20 10:28:00 [place] 10:55: h [id number] 00 Endo/Marquis glucose Endo/Marquis Resolve 2018-12-30 Laura testing d 2- 09:56:00 Violette, dependence 14:40: [id number] 00 Medication oral med Meds Resolve 2018-09-24 Laura assistance d 2- 14:40:00 Violette, required 14:40: [id number] 00 Endo/Marquis anti-coagul Endo/Marquis Resolve 2019-02-10 Juliana ation d 6-05 09:00:00 Arboleda therapy 09:50: 00 Musculoskel transfer Musculoske Resolve 2019-06-16 Julinaa freedl assistance letal d 6- 10:30:00 Arboleda [...] 0-30 10:30:00 Stacey e 11:00: [employer] 00 [id number] Respiratory CPAP Respirator Resolve 2018-082019-07-20 [place] treatments [...] 2-26 10:22:00 Stacey e 09:00: [employer] 00 [id number] Musculoskel requires Musculoske Active [place] etal human [...] mg-bioflv-r ose ose tablet,ext. tablet,ext. release release [place] 3 [place] 3 2014-08 No Roth 2400mg Unknown Fish [...] LOPEZ gel gel cyclobenzap cyclobenzap 2014-08 No Halma 1 tab Unknown rine 10 mg rine 10 mg 08-14 ,Can tablet tablet Dinesh Voltaren 1 Voltaren 1 2018- No Halma 4 grams Unknown % topical % topical 12-12 Can LOPEZ gel Dinesh MSM 1,000 MSM 1,000 No Halma 1 tab Unknown mg tablet mg tablet 10-23 Can LOPEZ milk milk 2016- No Halma 2 caps Unknown thistle 175 thistle 175 10-23 Can LOPEZ mg tablet mg tablet Dinesh milk milk No Halma 1 Unknown thistle 350 thistle 350 10-30 Can LOPEZ capusle mg capsule mg capsule Dinesh (350 mg traMADol 50 traMADol 50 2016- No Roth 50-75mg Unknown mg tablet mg tablet 10-30 Jan LOPEZ aspirin 81 aspirin 81 No Halma 1 Unknown mg chewable mg chewable 11-29 Can LOPEZ tablet tablet tablet Dinesh (81 Mg) acetaminoph acetaminoph No Halma 2 Unknown en 500 mg en 500 mg 12-18 Can LOPEZ tablets tablet tablet Dinesh (1000mg ) busPIRone busPIRone 2016- No Halma 1 Unknown 10 mg 10 mg 01-01 Can LOPEZ tablet tablet Dinesh naproxen naproxen 2016- No Halma 1 tab Unknown 500 mg 500 mg 01-08 Can LOPEZ tablet,juan tablet,juan Dinesh yed release yed release busPIRone busPIRone No Halma 1 Unknown 10 mg 10 mg 5 Can LOPEZ tablet tablet Dinesh traMADol 50 traMADol 50 2018- No Halma 50-75mg Unknown mg tablet mg tablet 10-30 Can LOPEZ Vitamin D3 Vitamin D3 2016-08 No Halma 1,000 Unknown 1,000 unit 1,000 unit 0 Can LOPEZ Unit capsule capsule Dinesh levoFLOXaci levoFLOXaci 2017- No Halma 500mg Unknown n 500 mg n 500 mg 09-01 Can LOPEZ tablet tablet Dinesh naproxen naproxen No Halma 1 tab Unknown 500 mg 500 mg 01-08 Can LOPEZ tablet,juan tablet,juan Dinesh yed release yed release ALPRAZolam ALPRAZolam 2014-08 No Roth 1 tab Unknown 0.5 mg 0.5 mg 08-14 MDJan tablet tablet ginkgo ginkgo No Halma Unknown Unknown biloba 60 biloba 60 03-25 [...]
--- OUTSIDE RECORDS SUMMARY | 2019-10-06 10:57 | XMS REPORT ---
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 Diagnosis Active [place] (current) (current) Mal[place]ke use of use of RN aspirin aspirin Respiratory treatments Respirator Resolve 2014-082016-09-25 Carmelita ordered y d 1-11 11:45:00 Dale [id number] Safety knowledge/s Safety Resolve 2016-02-08 Kayleigh kill d 09-15 15:04:00 Sinnigen deficit: pt 15:30: [id number] Diagnoses knowledge/s Diagnoses Active Tammee kill 09-15 Amina-Hor deficit: pt 15:30: an 00 Pain frequent Pain Mgmt Resolve 2018-10-21 Carmelita pain d 10-10 11:00:00 Dale 14:30: [id number] 00 Pain knowledge/s Pain Mgmt Resolve 2015-10-11 Carmelita kill d 10-10 14:30:00 Dale deficit: cg 14:30: [id number] 00 Cardio hypertensio Cardiovasc Resolve 2016-09-25 Carmelita n ular d 10-10 11:45:00 Dale 14:30: [id number] 00 Cardio knowledge/s Cardiovasc Resolve 2016-09-25 Carmelita kill ular d 10-10 11:45:00 Dale deficit: cg 14:30: [id number] 00 Respiratory dyspnea Respirator Resolve 2017-06-18 Carmelita present y d 10-10 11:47:00 Dale 14:30: [id number] 00 Respiratory oxygen Respirator Resolve 2017-06-18 Carmelita treatments y d 10-10 11:47:00 Dale in home 14:30: [id number] 00 Respiratory lung sounds Respirator Resolve 2016-05-01 Carmelita deficit y d 10-10 14:30:00 Dale 14:30: [id number] 00 Respiratory CPAP Respirator Resolve 2017-06-18 Carmelita treatments y d 10-10 11:47:00 Dale in home 14:30: [id number] 00 Respiratory knowledge/s Respirator Resolve 2015-10-11 Carmelita kill y d 10-10 14:30:00 Dale deficit: cg 14:30: [id number] 00 Nutrition knowledge/s Nutrition Resolve 2015-10-11 Carmelita kill d 10-10 14:30:00 Dale deficit: cg 14:30: [id number] 00 Neuro anxiety Neuro/Emot Resolve 2016-02-08 Carmelita present ion d 10-10 15:04:00 Dale 14:30: [id number] 00 Neuro depressive Neuro/Emot Resolve 2016-02-08 Carmelita feelings ion d 10-10 15:04:00 Dale present 14:30: [id number] 00 Neuro knowledge/s Neuro/Emot Resolve 2016-02-08 Carmelita kill ion d 10-10 15:04:00 Dale deficit: pt 14:30: [id number] 00 Neuro knowledge/s Neuro/Emot Resolve 2016-02-08 Carmelita kill ion d 10-10 15:04:00 Dale deficit: cg 14:30: [id number] 00 Activity knowledge/s Activity Resolve 2015-10-11 Carmelita kill d 10-10 14:30:00 Dale deficit: cg 14:30: [id number] 00 Safety safety Safety Resolve 2015-10-11 Carmelita hazards d 10-10 14:30:00 Dale present 14:30: [id number] 00 Safety fall risk Safety Resolve 2015-10-11 Carmelita factor d 10-10 14:30:00 Dale present 14:30: [id number] 00 Safety risk for Safety Resolve 2015-10-11 Carmelita hospitaliza d 10-10 14:30:00 Dale tion 14:30: [id number] 00 Diagnoses knowledge/s Diagnoses Active Carmelita kill 10-10 Dale deficit: cg 14:30: [id number] 00 Musculoskel knowledge/s Musculoske Resolve 2015-10-11 Carmelita etal kill letal d 10-10 14:30:00 Dale deficit: cg 14:30: [id number] 00 Nutrition knowledge/s Nutrition Resolve 2016-09-25 Kayleigh kill d 10-12 11:45:00 Sinnigen deficit: cg 15:30: [id number] 00 Safety safety Safety Active Kayleigh hazards - Sinnigen present 15:30: [id number] 00 Safety fall risk Safety Active Kayleigh factor - Sinnigen present 15:30: [id number] 00 Safety risk for Safety Active Kayleigh hospitaliza - Sinnigen tion 15:30: [id number] 00 Cardio edema Cardiovasc Resolve 2016-09-25 Carmelita ular d 3-18 11:45:00 Dale 15:30: [id number] 00 Pain frequent Pain Mgmt Unknown Moon pain 12-05 Danilo 16:31: [id number] 00 Pain knowledge/s Pain Mgmt Resolve 2016-02-08 Moon kill d 12-05 15:04:00 Danilo deficit: cg 16:31: [id number] 00 Cardio knowledge/s Cardiovasc Unknown Moon kill ular 12-05 Danilo deficit: cg 16:31: [id number] 00 Respiratory knowledge/s Respirator Resolve 2015-12-06 Moon kill y d 12-05 16:31:00 Danilo deficit: cg 16:31: [id number] 00 Integument skin Integument Resolve 2016-02-08 Moon integrity d 12-05 15:04:00 Danilo risk 16:31: [id number] 00 Elimination urinary Eliminatio Resolve 2016-02-08 Moon incontinenc n d 12-05 15:04:00 Danilo e 16:31: [id number] 00 Activity knowledge/s Activity Resolve 2016-02-08 Moon kill d 12-05 15:04:00 Danilo deficit: cg 16:31: [id number] 00 Respiratory knowledge/s Respirator Resolve 2016-02-08 Moon kill y d 12-20 15:04:00 Danilo deficit: cg 15:49: [id number] 00 Respiratory knowledge/s Respirator Unknown 2016-02-08 Kayleigh kill y 01-10 15:04:00 Sinnigen deficit: pt 15:30: [id number] 00 Medication injectable Meds Resolve 2016-02-08 Moon med d 02-07 15:04:00 Danilo assistance 15:04: [id number] required 00 Cardio hypertensio Cardiovasc Unknown Moon n ular 02-22 Danilo 09:45: [id number] 00 Elimination urinary Eliminatio Resolve 2016-02-23 Moon incontinenc n d 02-22 09:45:00 Danilo aggarwal 09:45: [id number] 00 Elimination ostomy Eliminatio Resolve 2016-04-17 Moon present n d 02-22 11:53:00 Danilo 09:45: [id number] 00 Elimination urinary Eliminatio Resolve 2016-04-17 Susan incontinenc n d 03-20 11:53:00 [place] e 10:03: [id number] 00 Neuro anxiety Neuro/Emot Resolve 2016-08-21 Moon present ion d 04-05 12:10:00 Danilo 15:49: [id number] 00 Neuro depressive Neuro/Emot Resolve 2016-08-21 Moon feelings ion d 04-05 12:10:00 Danilo present 15:49: [id number] 00 Neuro knowledge/s Neuro/Emot Resolve 2016-08-21 Moon kill ion d 04-05 12:10:00 Danilo deficit: pt 15:49: [id number] 00 Neuro knowledge/s Neuro/Emot Resolve 2016-08-21 Moon kill ion d 04-05 12:10:00 Danilo deficit: cg 15:49: [id number] 00 Activity ADL Activity Resolve 2016-06-19 Moon assistance d 04-05 11:30:00 Danilo required 15:49: [id number] 00 Activity knowledge/s Activity Resolve 2016-05-01 Moon kill d 04-05 14:30:00 Danilo deficit: cg 15:49: [id number] 00 Elimination urinary Eliminatio Resolve 2016-05-01 Susan incontinenc n d 04-24 14:30:00 [place] e 15:00: [id number] 00 Elimination urinary Eliminatio Resolve 2016-05-01 Susan frequency n d 04-24 14:30:00 [place] 15:00: [id number] 00 Respiratory lung sounds Respirator Unknown 2015-08 Susan deficit y 0-05 [place] 14:00: [id number] 00 Elimination urinary Eliminatio Resolve 2015-082016-05-15 Moon incontinenc n d 14:11:00 Danilo aggarwal 14:11: [id number] 00 Elimination urinary Eliminatio Resolve 2015-082016-05-29 Moon incontinenc n d 13:42:00 Danilo aggarwal 13:42: [id number] 00 Respiratory lung sounds Respirator Resolve 2015-082016-07-03 Susan deficit y d 08-05 14:12:00 [place] 12:38: [id number] 00 Respiratory CPAP Respirator Unknown 2015-08 Moon treatments y 08-06 Carrasco in home 14:31: [id number] 00 Respiratory dyspnea Respirator Unknown 2015-08 Moon present y 08-06 [place] 14:31: [id number] 00 Elimination urinary Eliminatio Resolve 2015-082016-06-06 Moon incontinenc n d 08-06 14:31:00 [place] e 14:31: [id number] 00 Integument skin Integument Active 2015-08 Moon integrity 09-02 Carrasco risk 14:12: [id number] 00 Elimination urinary Eliminatio Resolve 2015-082016-07-03 Moon incontinenc n d 09-02 14:12:00 Danilo e 14:12: [id number] 00 Elimination urinary Eliminatio Resolve 2015-082016-08-09 Moon incontinenc n d -14 10:32:00 Danilo aggarwal 12:00: [id number] 00 Respiratory lung sounds Respirator Resolve 2015-082016-08-21 Moon deficit y d 10-01 12:10:00 Danilo 10:43: [id number] 00 Cardio edema Cardiovasc Unknown Moon ular 08-09 Danilo 10:32: [id number] 00 Respiratory dyspnea Respirator Unknown Moon present y 08-09 Danilo 10:32: [id number] 00 Activity ADL Activity Resolve 2016-08-21 Moon assistance d 08-09 12:10:00 Danilo required 10:32: [id number] 00 Musculoskel transfer Musculoske Resolve 2016-09-25 Moon etal assistance letal d 08-09 11:45:00 Danilo required 10:32: [id number] 00 Musculoskel knowledge/s Musculoske Resolve 2016-09-25 Moon etal kill letal d 08-09 11:45:00 Danilo deficit: cg 10:32: [id number] 00 Nutrition nutritional Nutrition Resolve 2016-11-20 Moon restriction d 08-21 09:45:00 Danilo kirby 12:10: [id number] 00 Neuro depressive Neuro/Emot Resolve 2019-02-10 Moon feelings ion d 09-11 09:00:00 Danilo present 13:00: [id number] 00 Neuro anxiety Neuro/Emot Resolve 2019-02-10 Moon present ion d 09-11 09:00:00 Danilo 13:00: [id number] 00 Cardio edema Cardiovasc Resolve 2017-06-18 Moon ular d 10-07 11:47:00 Danilo 13:05: [id number] 00 Respiratory dyspnea Respirator Unknown Moon present y 10-07 Danilo 13:05: [id number] 00 Activity ADL Activity Resolve 2017-06-18 Moon assistance d 10-07 11:47:00 Danilo required 13:05: [id number] 00 Musculoskel transfer Musculoske Resolve 2016-10-23 Moon etal assistance letal d 10-07 11:30:00 Danilo required 13:05: [id number] 00 Respiratory treatments Respirator Resolve 2017-10-22 Susan ordered y d 10-30 12:00:00 [place] 11:00: [id number] 00 Nutrition knowledge/s Nutrition Resolve 2016-11-20 Susan kill d 10-30 09:45:00 [place] deficit: cg 11:00: [id number] 00 Respiratory dyspnea Respirator Unknown Susan present y 10-31 [place] 11:30: [id number] 00 Respiratory dyspnea Respirator Unknown Susan present y 11-13 [place] 13:45: [id number] 00 Respiratory dyspnea Respirator Unknown Purnima present y 11-27 Burgess 10:30: [id number] 00 Respiratory CPAP Respirator Unknown Purnima treatments y 4- Burgess in home 10:30: [id number] 00 Nutrition nutritional Nutrition Resolve 2017-05-21 Purnima restriction d 12-04 13:07:00 [place] s 10:00: [id number] 00 Respiratory dyspnea Respirator Unknown Susan present y 12-11 [place] 12:15: [id number] 00 Test/Treatm tests Test/Injec Resolve 2017-12-31 Purnima ent ordered t/Rashard d 12-18 11:45:00 [place] [id number] Respiratory dyspnea Respirator Unknown Susan present y 12-25 [place] 12:20: [id number] 00 Musculoskel transfer Musculoske Unknown Purnima etal assistance letal 01-01 Burgess required 09:45: [id number] 00 Musculoskel requires Musculoske Unknown Purnima etal human letal 01-01 Burgess assist to 09:45: [id number] leave home 00 Respiratory dyspnea Respirator Unknown Susan present y 01-08 [place] 11:50: [id number] 00 Respiratory lung sounds Respirator Unknown Susan deficit y 01-15 [place] 13:00: [id number] 00 Respiratory dyspnea Respirator Unknown Juliana present y 01-29 Wilbert 11:15: [id number] 00 Respiratory dyspnea Respirator Unknown Susan present y 02-19 [place] 10:38: [id number] 00 Cardio knowledge/s Cardiovasc Resolve 2017-09-30 Ujliana kill ular d 03-05 11:00:00 Wilbert deficit: cg 12:13: [id number] 00 Respiratory dyspnea Respirator Unknown Susan present y 03-12 [place] 10:51: [id number] 00 Musculoskel requires Musculoske Unknown Juliana etal human letal 03-19 Wilbert assist to 11:56: [id number] leave home 00 Respiratory dyspnea Respirator Unknown Juliana present y 03-24 Wilbert 12:05: [id number] 00 Nutrition knowledge/s Nutrition Resolve 2017-05-21 Juliana kill d 03-24 13:07:00 Wilbert deficit: cg 12:05: [id number] 00 Respiratory dyspnea Respirator Unknown Tammee present y 04-02 Amina-Hor 11:38: an 00 Musculoskel requires Musculoske Resolve 2018-12-30 Juliana etal human letal d 04-02 09:56:00 Wilbert assist to 11:38: [id number] leave home 00 Respiratory dyspnea Respirator Unknown Susan present y 9 [place] 15:15: [id number] 00 Musculoskel transfer Musculoske Resolve 2018-12-30 Juliana etal assistance letal d 04-30 09:56:00 Wilbert required 13:23: [id number] 00 Respiratory dyspnea Respirator Unknown 2016-08 Susan present y 0- [place] 11:59: [id number] 00 Cardio knowledge/s Cardiovasc Resolve 2016-082017-09-30 [place] [...] clinically d 0-11 11:47:00 [place] 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 Respiratory dyspnea Respirator Unknown 2016-08 [place] present y 0-18 [place] 13:07: RN 00 Nutrition knowledge/s Nutrition Resolve 2016-082017-05-21 [place] kill d 0-18 13:07:00 [place] deficit: pt 13:07: RN 00 Musculoskel requires Musculoske Resolve 2016-082018-12-30 [place] etal special letal d 0-18 09:56:00 [place] transportat 13:07: RN ion 00 Respiratory dyspnea Respirator Unknown 2016-08 Susan present y 0-25 [place] 13:00: [id number] 00 Nutrition nutritional Nutrition Resolve 2016-082017-12-17 [place] restriction d 0-26 12:29:00 [place] s 14:20: RN 00 Nutrition knowledge/s Nutrition Resolve 2016-082017-12-17 [place] kill d 0-26 12:29:00 [place] deficit: pt 14:20: RN 00 Elimination urinary Eliminatio Resolve 2016-082017-06-18 [place] incontinenc n d 0- 11:47:00 [place] e 14:20: RN 00 Respiratory dyspnea Respirator Unknown 2016-08 Milagros present y 08-18 Alexandro Roya 12:53: [id number] 00 Respiratory dyspnea Respirator Resolve 2016-082018-01-28 Milagros present y d 09-01 11:42:00 Alexandro Roya 11:34: [id number] 00 Cardio edema Cardiovasc Resolve 2016-082018-12-30 [place] [...] 2017-09-30 Susan incontinenc n d 1- 11:00:00 [place] e 11:29: [id number] 00 Medication potential Meds Resolve 2018-03-25 [place] clinically d 2-21 11:00:00 [place] significant 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 Respiratory oxygen Respirator Resolve 2018-01-28 [place] treatments y d 2-27 11:42:00 [place] in home 11:00: RN 00 Respiratory CPAP Respirator Resolve 2018-01-28 Susan treatments y d 3-14 11:42:00 [place] in home 12:20: [id number] 00 Elimination urinary Eliminatio Resolve 2017-10-22 [place] incontinenc n d 3-21 12:00:00 [place] e 12:00: RN 00 Elimination urinary Eliminatio Resolve 2017-12-17 [place] incontinenc n d 4-18 12:29:00 Mal[place] e 10:37: RN 00 Medication oral med Meds Resolve 2018-03-25 Juliana assistance d 11-28 11:00:00 Wilbert required 14:17: [id number] 00 Endo/Marquis anti-coagul Endo/Marquis Resolve 2018-12-30 [place] ation d 12-31 09:56:00 Mal[place]ke therapy 11:45: RN 00 Nutrition nutritional Nutrition Resolve 2018-06-17 [place] restriction d 12-31 10:01:00 [place] s 11:45: RN 00 Elimination urinary Eliminatio Resolve 2018-01-28 [place] incontinenc n d 12-31 11:42:00 [place] e 11:45: RN 00 Respiratory lung sounds Respirator Resolve 2019-02-10 Tiki deficit y d 01-28 09:00:00 Guidelli 11:42: [id number] 00 OT: Self self-care OT: Active Keshia Care deficit Self-Care 02-12 Jeisno 13:00: [id number] 00 OT: Self knowledge/s OT: Active Keshia Care kill Self-Care 02-12 Jeison deficit: pt 13:00: [id number] 00 Respiratory oxygen Respirator Resolve 2019-02-10 Lori treatments y d 02-25 09:00:00 [place] in home 08:32: h [id number] 00 Elimination urinary Eliminatio Resolve 2019-01-13 Lori incontinenc n d 02-25 09:45:00 Yakov-Zos e 08:32: h [id number] 00 Respiratory dyspnea Respirator Resolve 2019-02-10 Juliana present y d 03-25 09:00:00 [place] 11:00: [id number] 00 Medication oral med Meds Resolve 2018-06-17 Lori assistance d 04-22 10:01:00 Yakov-Zos required 10:16: h [id number] 00 Nutrition nutritional Nutrition Resolve 2017-082019-01-13 Lori restriction d 09-15 09:45:00 Yakov-Zos s 10:25: h [id number] 00 Neuro impaired Neuro/Emot Resolve 2017-082019-07-20 Lori decision-ma ion d 2-20 10:28:00 [place] johny 10:55: h [id number] 00 Neuro behavior Neuro/Emot Resolve 2017-082019-07-20 Lori problems ion d 2-20 10:28:00 Yakov-Zos 10:55: h [id number] 00 Endo/Marquis glucose Endo/Marquis Resolve 2018-12-30 Laura testing d 2- 09:56:00 Violette, dependence 14:40: [id number] 00 Medication oral med Meds Resolve 2018-09-24 Laura assistance d 2- 14:40:00 Violette, required 14:40: [id number] 00 Endo/Marquis anti-coagul Endo/Mraquis Resolve 2019-02-10 Juliana ation d 6-05 09:00:00 [...] 0-30 10:30:00 Stacey e 11:00: [employer] 00 [id number] Respiratory CPAP Respirator Resolve 2018-082019-07-20 [place] treatments [...] 2-26 10:22:00 Stacey e 09:00: [employer] 00 [id number] Musculoskel requires Musculoske Active [place] etal human [...] mg-bioflv-r ose ose tablet,ext. tablet,ext. release release [place] 3 [place] 3 2014-08 No Roth 2400mg Unknown Fish [...] LOPEZ gel gel cyclobenzap cyclobenzap 2014-08 No [place] 1 tab Unknown rine 10 mg rine 10 mg 08-14 Can LOPEZ tablet tablet Dinesh Voltaren 1 Voltaren 1 2018- No [place] 4 grams Unknown % topical % topical 12-12 Can LOPEZ gel Dinesh MSM 1,000 MSM 1,000 No [place] 1 tab Unknown mg tablet mg tablet 10-23 Can LOPEZ milk milk 2016- No [place] 2 caps Unknown thistle 175 thistle 175 10-23 Can LOPEZ mg tablet mg tablet Dinesh milk milk No [place] 1 Unknown thistle 350 thistle 350 10-30 Can LOPEZ capusle mg capsule mg capsule Dinesh (350 mg traMADol 50 traMADol 50 No Roth 50-75mg Unknown mg tablet mg tablet 10-30 Jan LOPEZ aspirin 81 aspirin 81 No [place] 1 Unknown mg chewable mg chewable 11-29 Can LOPEZ tablet tablet tablet Dinesh (81 Mg) acetaminoph acetaminoph No [place] 2 Unknown en 500 mg en 500 mg 12-18 Can LOPEZ tablets tablet tablet Dinesh (1000mg ) busPIRone busPIRone 2016- No [place] 1 Unknown 10 mg 10 mg 01-01 Can LOPEZ tablet tablet Dinesh naproxen naproxen 2016- No [place] 1 tab Unknown 500 mg 500 mg 01-08 Can LOPEZ tablet,juan tablet,juan Dinesh yed release yed release busPIRone busPIRone No [place] 1 Unknown 10 mg 10 mg 01-01 Can LOPEZ tablet tablet Dinesh traMADol 50 traMADol 50 2018- No [place] 50-75mg Unknown mg tablet mg tablet 10-30 Can LOPEZ Vitamin D3 Vitamin D3 2016-08 No [place] 1,000 Unknown 1,000 unit 1,000 unit 0 Can LOPEZ Unit capsule capsule Dinesh levoFLOXaci levoFLOXaci 2017- No [place] 500mg Unknown n 500 mg n 500 mg 09-01 Can LOPEZ tablet tablet Dinesh naproxen naproxen No [place] 1 tab Unknown 500 mg 500 mg 01-08 Can LOPEZ tablet,juan tablet,juan Dinesh yed release yed release ALPRAZolam ALPRAZolam 2014-08 No Roth 1 tab Unknown 0.5 mg 0.5 mg 08-14 MDJan tablet tablet ginkgo ginkgo No [place] Unknown Unknown biloba 60 biloba 60 03-25 [...]
[2019-10-06 11:32] VITALS: BP 146/47
--- NOTE | 2019-10-06 12:00 | UC ---
Respiratory Complaint HPI - HPI Summary HPI Summary: PATIENT ARRIVES COMPLAINING OF COUGH AND CONGESTION. THINKS SHE MAY HAVE ASPIRATED EGGS ABOUT A WEEK AGO. NO FEVER OR SHORTNESS OF BREATH. IS ALSO HERE CONCERNED ABOUT A LEFT LOWER EXTREMITY WOUND. SCRAPED ON NEW WHEELCHAIR A FEW DAYS AGO. HAS A HISTORY OF PERIPHERAL VASCULAR DISEASE. UNKNOWN DATE OF LAST TETANUS. - History of Current Complaint Chief Complaint: UCRespiratory Stated Complaint: WHEEZING WOUND ON LEG Time Seen by Provider: 10/06/19 11:47 Hx Obtained From: Patient Onset/Duration: Lasting Days, Still Present Timing: Constant Severity Initially: Moderate Severity Currently: Moderate Pain Intensity: 0 Pain Scale Used: 0-10 Numeric Character: Cough: Nonproductive Aggravating Factors: Nothing Alleviating Factors: Nothing Associated Signs And Symptoms: Negative: Fever - Allergies/Home Medications Allergies/Adverse Reactions: Allergies Allergy/AdvReac Type Severity Reaction Status Date / Time Adhesive Tape Allergy Mild Unknown Verified 10/06/19 11:32 Reaction Details Iodinated Contrast Media Allergy Shortness Verified 10/06/19 11:32 [Iodinated Contrast- Oral of Breath and IV Dye] pregabalin [From Lyrica] Allergy Swelling Verified 10/06/19 11:32 Of Face,Lips,& Throat Home Medications: Home Medications Cyclosporine 0.05% OPHTH (NF) [Restasis 0.05% OPHTH] 1 drop BOTH EYES BID [History Confirmed 01/15/19] Omeprazole CAP (NF) [Prilosec CAP* 20 MG] 20 mg PO DAILY 02/24/14 [History Confirmed 01/15/19] busPIRone TAB* [Buspar TAB*] 10 mg PO QID 02/24/14 [History Confirmed 01/15/19] metFORMIN* [Glucophage 1000 MG TAB *] 1,000 mg PO BID 02/24/14 [History Confirmed 01/15/19] traMADol TAB* [Ultram*] 50 mg PO SEE INSTRUCTIONS 02/24/14 [History Confirmed ] ALPRAZolam TAB* [Xanax TAB*] 0.5 mg PO DAILY PRN 02/02/15 [History Confirmed ] Gabapentin CAP(*) [Neurontin 300 CAP(*)] 600 mg PO TID 02/02/15 [History Confirmed 01/15/19] Naproxen TAB* [Naprosyn 250 mg TAB*] 500 mg PO BID PRN 02/02/15 [History Confirmed 01/14/19] Olopatadine 0.2% (NF) [Pataday 0.2% (NF)] 1 drop BOTH EYES DAILY PRN 02/02/15 [ History Confirmed 01/15/19] Quinapril HCl [Accupril] 40 mg PO DAILY 02/02/15 [History Confirmed 01/15/19] Acetaminophen [Acetaminophen Extra Strength] 2 tab PO TID PRN 01/14/19 [History Confirmed 01/15/19] Amoxicillin PO (*) [Amoxicillin 500 MG CAP*] 2,000 mg PO ONCE 01/14/19 [History Confirmed 01/14/19] Ascorbic Acid [Vitamin C] 3,000 mg PO DAILY 01/14/19 [History Confirmed 01/15/19 ] Aspirin [Aspirin EC] 81 mg PO DAILY 01/14/19 [History Confirmed 01/15/19] Cholecalciferol TAB* [Vitamin D TAB*] 1,000 unit PO DAILY 01/14/19 [History Confirmed 01/15/19] Clotrimazole/Betamethasone Dip [Clotrimazole-Betamethasone Lot] 1 applic TOPICAL BID PRN 01/14/19 [History Confirmed 01/14/19] Cyclobenzaprine HCl 10 mg PO TID 01/14/19 [History Confirmed 01/15/19] Fish Oil/Borage/Flax/Om3,6,9 1 [Emerson 3-6-9 1,200 mg Softgel] 2 tab PO DAILY [History Confirmed 01/15/19] Fluoxetine HCl [Prozac] 20 mg PO DAILY 01/14/19 [History Confirmed 01/15/19] Fluticasone NASAL SPRAY 50MCG* [Flonase NASAL SPRAY 50MCG*] 2 spray BOTH NARES DAILY PRN 01/14/19 [History Confirmed 01/14/19] Ginkgo Biloba [place] Extract [Ginkgo Biloba] 30 mg PO DAILY 01/14/19 [History Confirmed 01/15/19] Glucosamine HCl 1,500 mg PO DAILY 01/14/19 [History Confirmed 01/15/19] Magnesium Oxide TAB* [MagOx 400 TAB*] 3 tab PO DAILY 01/14/19 [History Confirmed 01/15/19] Methylsulfonylmethane [MSM] 2,000 mg PO DAILY 01/14/19 [History Confirmed ] Metoprolol Succinate XL TAB* [Toprol XL TAB*] 25 mg PO DAILY 01/14/19 [History Confirmed 01/15/19] Milk Thistle Extract 350 mg PO DAILY 01/14/19 [History Confirmed 01/15/19] PMH/Surg Hx/FS Hx/Imm Hx Endocrine History: Diabetes Cardiovascular History: Hypertension, Atrial Fibrillation Other Cardiovascular History: PVD - Surgical History Surgical History: Yes Surgery Procedure, Year, and Place: BILATERAL SHOULDER REPLACEMENTS. Hysterectomy subtotal - Family History Known Family History: Positive: Cardiac Disease, Diabetes, Other - CA Negative: Seizure Disorder - Social History Alcohol Use: Rare Substance Use Type: None Smoking Status (MU): Former Smoker - Immunization History Most Recent Influenza Vaccination: uncertain Most Recent Tetanus Shot: uncertain Most Recent Pneumonia Vaccination: never Review of Systems All Other Systems Reviewed And Are Negative: Yes Constitutional: Positive: Negative Skin: Positive: Other Respiratory: Positive: Cough Cardiovascular: Positive: Negative Gastrointestinal: Positive: Negative Physical Exam Triage Information Reviewed: Yes Appearance: Well-Appearing, No Pain Distress, Well-Nourished, Obese Vital Signs: Initial Vital Signs Temp 97.8 F 10/06/19 11:24 Pulse 94 10/06/19 11:24 Resp 20 10/06/19 11:24 BP 146/47 10/06/19 11:24 Pulse Ox 97 10/06/19 11:24 Vital Signs Reviewed: Yes Eyes: Positive: Conjunctiva Clear ENT: Positive: Hearing grossly normal Neck: Positive: Supple Respiratory: Positive: No respiratory distress, No accessory muscle use Cardiovascular: Positive: Pulses Normal Neurological: Positive: Alert Psychological: Positive: Age Appropriate Behavior Skin: Positive: Other - WOUND LLE WITH SEROUS DRAINAGE Diagnostics - Radiology CXR Radiology Interpretation Completed By: Radiologist Summary of Radiographic Findings: Increased density in the right lung base likely due to limited positioning and overlying tissue. Respiratory Course/Dx - Course Course Of Treatment: PATIENT ARRIVES CONCERNED THAT SHE ASPIRATED EGGS ABOUT A WEEK AGO. CHEST X- RAY OBTAINED AND SHOWED INCREASED DENSITY IN THE RIGHT LUNG BASE LIKELY DUE TO LIMITED POSITIONING AND OVERLYING TISSUE. PATIENT ELOPED WHILE HER FILM WAS BEING REVIEWED BY RADIOLOGY. SHE ALSO WAS COMPLAINING ABOUT A WOUND TO HER LEFT LEG. SCRAPED HERSELF ON HER WHEELCHAIR A FEW DAYS AGO. PHYSICAL EXAM INCOMPLETE DUE TO PATIENT ELOPEMENT. - Differential Dx/Diagnosis Provider Diagnosis: Cough, Wound of left lower extremity Discharge ED - Sign-Out/Discharge Documenting (check all that apply): Patient Departure All imaging exams completed and their final reports reviewed: Yes - Discharge Plan Condition: Fair Disposition: ELOPEMENT Referrals: Hawa Vaughan MD [Primary Care Provider] - - Billing Disposition and Condition Condition: FAIR Disposition: Elopement
== END 2019-10-06 12:40 | disposition home or self-care (01) ==
LOC: UCEAST 10:45
DX: R05 Cough (principal); S80.922A Unspecified superficial injury of left lower leg, initial encounter; E11.9 Type 2 diabetes mellitus without complications; I10 Essential (primary) hypertension; I48.91 Unspecified atrial fibrillation; X58.XXXA Exposure to other specified factors, initial encounter; Y92.9 Unspecified place or not applicable; Z96.612 Presence of left artificial shoulder joint; Z96.611 Presence of right artificial shoulder joint; Z87.891 Personal history of nicotine dependence; Z79.84 Long term (current) use of oral hypoglycemic drugs; Z79.82 Long term (current) use of aspirin; Z79.899 Other long term (current) drug therapy; Z91.09 Other allergy status, other than to drugs and biological substances; Z91.041 Radiographic dye allergy status; Z88.8 Allergy status to other drugs, medicaments and biological substances
CPT/HCPCS: 71046; 99212; G0463

== ENCOUNTER 2021-07-09 23:31 | Inpatient (IN) ==
[2021-07-10] MEDS ORDERED: Acetaminophen IV 1 GM/100ML 100 ML IV ONE (00:05)
[2021-07-10] MEDS ORDERED: Lactated Ringers 1000 ml BAG 1,000 ML IV ONE (00:05)
[2021-07-10] MEDS ORDERED: diPHENhydraMINE IV 50 MG/ML 1 ml VIAL (BENADRYL) IV ONE ×2 (00:28→05:31)
[2021-07-10] MEDS ORDERED: methylPREDNISolone 125 mg 2 ML VIAL IV ONE (00:28)
[2021-07-10 01:08] LABS: ABS Lymphocytes 0.9 10^3/ul (1.0-4.8); ABS Monocytes 0.9 10^3/ul (0-0.8); ABS Neutrophils 6.4 10^3/ul (1.5-7.7); Eosinophil % 0.1 %; Hematocrit 34 % (35-47); Hemoglobin 11.6 g/dL (12.0-16.0); Lymphocyte % 11.2 %; Mean Corpuscular HGB Conc 34 g/dL (31-36); Mean Corpuscular Hemoglobin 30 pg (27-31); Mean Corpuscular Volume 89 fL (80-97); Mean Platelet Volume 8.2 fL (7.4-10.4); Platelet Count 231 10^3/uL (150-450); Red Blood Count 3.84 10^6 /uL (3.70-4.87); Red Cell Distribution Width 15 % (10-15); White Blood Count 8.2 10^3/uL (3.5-10.8)
[2021-07-10 01:14] LABS: Albumin 3.5 g/dL (3.2-5.2); Albumin/Globulin Ratio 1.3 (1-3); C Reactive Protein 47.73 mg/L (<8.01); Globulin 2.8 g/dL (2-4); Potassium 3.6 mmol/L (3.5-5.0); Total Bilirubin 0.4 mg/dL (0.2-1.0); Total Protein 6.3 g/dL (6.4-8.9); eGFR CKD-EPI 96.6 (>60)
[2021-07-10 01:28] LABS: INR 1.33 (0.86-1.15)
[2021-07-10 01:29] LABS: Activated Partial Thrombo Time 25.9 seconds (26.0-38.0)
[2021-07-10 01:33] LABS: Urine Appearance Cloudy; Urine Bilirubin Negative (Negative); Urine Blood 1+ (Negative); Urine Color Yellow; Urine Glucose Negative (Negative); Urine Ketones Negative (Negative); Urine Nitrite Positive (Negative); Urine Protein Negative (Negative); Urine Specific Gravity 1.004 (1.002-1.030); Urine Urobilinogen Negative (Negative)
[2021-07-10 01:35] LABS: Urine Bacteria 1+ (Absent); Urine Red Blood Cell Trace(0-2/hpf) (Absent); Urine Squamous Epithelial Cell Present (Absent); Urine White Blood Cell 3+(>20/hpf) (Absent)
[2021-07-10 01:47] LABS: Troponin I 0.01 ng/mL (<0.03)
[2021-07-10] MEDS ORDERED: cefTRIAXone 1 gm/50 mL NS BAG 1 GM/50 ML BAG IV ONE (02:51)
[2021-07-10] MEDS ORDERED: Iodixanol (CONTRAST) 320 MG/ML 100 ML SDV IV ONE (04:58)
[2021-07-10 09:58] LABS: Rapid COVID-19 Molecular Undetected (Undetected)
[2021-07-10] MEDS ORDERED: cefTRIAXone 1 gm/50 mL NS BAG 1 GM/50 ML BAG IVPB ONE (13:38)
[2021-07-10] MEDS ORDERED: Fluticasone NASAL SPRAY 50MCG 16 gm SPRAY BTL BOTH NARES PRN (13:39)
[2021-07-10] MEDS ORDERED: NF: Olopatadine 0.2% (NF) 1 DROP BTL BOTH EYES PRN (13:39)
[2021-07-10] MEDS: Enoxaparin 40 MG/0.4 ML SYR SUBCUT SCH (17:38)
[2021-07-10] MEDS ORDERED: Dextrose 50% Syringe 50 ml 25 GM/50 ML SYRINGE IV PUSH PRN (18:53)
[2021-07-10 20:16] LABS: Magnesium 1.8 mg/dL (1.9-2.7)
[2021-07-10] MEDS ORDERED: cefTRIAXone 1 gm/50 mL NS BAG 1 GM/50 ML BAG IVPB SCH (21:00)
[2021-07-10] MEDS: CMCS: Cyclosporine 0.05% OPHTH (NF) 0.4 ML VIAL BOTH EYES SCH (21:32)
[2021-07-11 05:27] LABS: ABS Lymphocytes 0.8 10^3/ul (1.0-4.8); ABS Monocytes 0.6 10^3/ul (0-0.8); ABS Neutrophils 5.7 10^3/ul (1.5-7.7); Eosinophil % 0.4 %; Hematocrit 36 % (35-47); Hemoglobin 11.8 g/dL (12.0-16.0); Lymphocyte % 11.1 %; Mean Corpuscular HGB Conc 33 g/dL (31-36); Mean Corpuscular Hemoglobin 30 pg (27-31); Mean Corpuscular Volume 90 fL (80-97); Mean Platelet Volume 7.8 fL (7.4-10.4); Platelet Count 218 10^3/uL (150-450); Red Blood Count 3.96 10^6 /uL (3.70-4.87); Red Cell Distribution Width 15 % (10-15); White Blood Count 7.1 10^3/uL (3.5-10.8)
[2021-07-11 05:44] LABS: Calcium 9.1 mg/dL (8.6-10.3); Potassium 3.5 mmol/L (3.5-5.0); eGFR CKD-EPI 100.9 (>60)
[2021-07-11] MEDS: cefTRIAXone 2 GM ADDV.VIAL 2 GM in NS 0.9% 100 ml BAG 100 ML IV SCH (06:45)
[2021-07-11] MEDS ORDERED: Furosemide 40 mg/4 ml IV VIAL ONE (10:46)
[2021-07-11] MEDS ORDERED: Furosemide 40 mg/4 ml IV VIAL IV ONE (10:50)
[2021-07-11] MEDS: Cholecalciferol (VIT D3) 1,000 unit TAB PO SCH (11:56)
[2021-07-11] MEDS: Aspirin EC 81 mg TAB.EC (enteric coated) PO SCH (11:58)
[2021-07-11] MEDS: CMCS: Cyclosporine 0.05% OPHTH (NF) 0.4 ML VIAL BOTH EYES SCH ×2 (11:59→22:05)
[2021-07-11] MEDS ORDERED: Magnesium Sulfate IV 1GM/100ML 1 GM/100 ML BAG IV ONE (12:47)
[2021-07-11] MEDS ORDERED: Magnesium Hydroxide LIQ 30 ML UDC PO PRN (14:41)
[2021-07-11] MEDS ORDERED: Senna TAB 8.6 mg TAB PO PRN (14:41)
[2021-07-11] MEDS ORDERED: Metoprolol Tartrate 5 mg VIAL 5 ml VIAL (1 mg/ml) IV ONE (17:00)
[2021-07-11] MEDS ORDERED: Digoxin IV 0.5 MG/2 ML AMP (0.25 MG/ML) IV SLOW PU ONE (17:01)
[2021-07-11] MEDS ORDERED: Potassium Chlor 20 meq TAB.ER PO ONE (17:03)
[2021-07-11] MEDS: Enoxaparin 40 MG/0.4 ML SYR SUBCUT SCH (21:56)
[2021-07-12] MEDS: cefTRIAXone 2 GM ADDV.VIAL 2 GM in NS 0.9% 100 ml BAG 100 ML IV SCH (05:14)
[2021-07-12 05:18] LABS: ABS Lymphocytes 1.5 10^3/ul (1.0-4.8); ABS Monocytes 0.8 10^3/ul (0-0.8); ABS Neutrophils 4.9 10^3/ul (1.5-7.7); Eosinophil % 0.4 %; Hematocrit 35 % (35-47); Hemoglobin 11.7 g/dL (12.0-16.0); Lymphocyte % 20.4 %; Mean Corpuscular HGB Conc 34 g/dL (31-36); Mean Corpuscular Hemoglobin 30 pg (27-31); Mean Corpuscular Volume 89 fL (80-97); Mean Platelet Volume 8.5 fL (7.4-10.4); Platelet Count 260 10^3/uL (150-450); Red Blood Count 3.91 10^6 /uL (3.70-4.87); Red Cell Distribution Width 15 % (10-15); White Blood Count 7.3 10^3/uL (3.5-10.8)
[2021-07-12 05:37] LABS: Calcium 8.9 mg/dL (8.6-10.3); Potassium 3.7 mmol/L (3.5-5.0); eGFR CKD-EPI 89.2 (>60)
[2021-07-12] MEDS: Aspirin EC 81 mg TAB.EC (enteric coated) PO SCH (10:17)
[2021-07-12] MEDS: Cholecalciferol (VIT D3) 1,000 unit TAB PO SCH (10:18)
[2021-07-12] MEDS: CMCS: Cyclosporine 0.05% OPHTH (NF) 0.4 ML VIAL BOTH EYES SCH ×2 (10:19→21:00)
[2021-07-12] MEDS ORDERED: Perflutren Lipid Microsphere 3 ML VIAL ONE (15:15)
[2021-07-12] MEDS: Polyethylene Glycol 3350 17 GM PACKET PO SCH (17:09)
[2021-07-12] MEDS: Enoxaparin 40 MG/0.4 ML SYR SUBCUT SCH (21:00)
[2021-07-13 04:50] LABS: ABS Eosinophils 0.1 10^3/ul (0-0.6); ABS Lymphocytes 1.1 10^3/ul (1.0-4.8); ABS Monocytes 0.6 10^3/ul (0-0.8); ABS Neutrophils 3.3 10^3/ul (1.5-7.7); Hematocrit 36 % (35-47); Hemoglobin 11.8 g/dL (12.0-16.0); Lymphocyte % 21.6 %; Mean Corpuscular HGB Conc 33 g/dL (31-36); Mean Corpuscular Hemoglobin 30 pg (27-31); Mean Corpuscular Volume 89 fL (80-97); Mean Platelet Volume 7.9 fL (7.4-10.4); Nucleated Red Blood Cells % 0.1; Platelet Count 236 10^3/uL (150-450); Red Blood Count 3.99 10^6 /uL (3.70-4.87); Red Cell Distribution Width 15 % (10-15); White Blood Count 5.2 10^3/uL (3.5-10.8)
[2021-07-13 05:11] LABS: Calcium 8.8 mg/dL (8.6-10.3); Potassium 3.9 mmol/L (3.5-5.0); eGFR CKD-EPI 101.4 (>60)
[2021-07-13] MEDS: cefTRIAXone 2 GM ADDV.VIAL 2 GM in NS 0.9% 100 ml BAG 100 ML IV SCH (05:55)
[2021-07-13] MEDS: Cholecalciferol (VIT D3) 1,000 unit TAB PO SCH (08:54)
[2021-07-13] MEDS: CMCS: Cyclosporine 0.05% OPHTH (NF) 0.4 ML VIAL BOTH EYES SCH ×2 (08:55→21:16)
[2021-07-13] MEDS: Magnesium Hydroxide LIQ 30 ML UDC PO SCH ×2 (08:55→21:03)
[2021-07-13] MEDS: Aspirin EC 81 mg TAB.EC (enteric coated) PO SCH (08:55)
[2021-07-13] MEDS: Polyethylene Glycol 3350 17 GM PACKET PO SCH (09:02)
[2021-07-13] MEDS: Enoxaparin 40 MG/0.4 ML SYR SUBCUT SCH (21:05)
[2021-07-14] MEDS: Aspirin EC 81 mg TAB.EC (enteric coated) PO SCH (08:47)
[2021-07-14] MEDS: Cholecalciferol (VIT D3) 1,000 unit TAB PO SCH (08:48)
[2021-07-14] MEDS: Magnesium Hydroxide LIQ 30 ML UDC PO SCH ×2 (08:48→21:25)
[2021-07-14] MEDS: Polyethylene Glycol 3350 17 GM PACKET PO SCH (08:48)
[2021-07-14] MEDS: CMCS: Cyclosporine 0.05% OPHTH (NF) 0.4 ML VIAL BOTH EYES SCH ×2 (08:49→21:32)
[2021-07-14] MEDS: Enoxaparin 40 MG/0.4 ML SYR SUBCUT SCH (21:31)
[2021-07-15] MEDS: Cholecalciferol (VIT D3) 1,000 unit TAB PO SCH (08:34)
[2021-07-15] MEDS: Aspirin EC 81 mg TAB.EC (enteric coated) PO SCH (08:34)
[2021-07-15] MEDS: Magnesium Hydroxide LIQ 30 ML UDC PO SCH ×3 (08:35→20:30)
[2021-07-15] MEDS: Polyethylene Glycol 3350 17 GM PACKET PO SCH (08:36)
[2021-07-15] MEDS: CMCS: Cyclosporine 0.05% OPHTH (NF) 0.4 ML VIAL BOTH EYES SCH ×2 (08:44→20:36)
[2021-07-15 10:59] LABS: ABS Eosinophils 0.2 10^3/ul (0-0.6); ABS Lymphocytes 1.4 10^3/ul (1.0-4.8); ABS Monocytes 0.4 10^3/ul (0-0.8); Eosinophil % 3.6 %; Hematocrit 38 % (35-47); Hemoglobin 12.6 g/dL (12.0-16.0); Mean Corpuscular HGB Conc 33 g/dL (31-36); Mean Corpuscular Hemoglobin 30 pg (27-31); Mean Corpuscular Volume 89 fL (80-97); Platelet Count 324 10^3/uL (150-450); Red Blood Count 4.28 10^6 /uL (3.70-4.87); Red Cell Distribution Width 16 % (10-15); White Blood Count 6.1 10^3/uL (3.5-10.8)
[2021-07-15 11:10] LABS: Calcium 9.4 mg/dL (8.6-10.3); Potassium 4.3 mmol/L (3.5-5.0); eGFR CKD-EPI 95.3 (>60)
[2021-07-15] MEDS: Enoxaparin 40 MG/0.4 ML SYR SUBCUT SCH (20:27)
[2021-07-16] MEDS: Cholecalciferol (VIT D3) 1,000 unit TAB PO SCH (08:21)
[2021-07-16] MEDS: Magnesium Hydroxide LIQ 30 ML UDC PO SCH ×2 (08:23→19:42)
[2021-07-16] MEDS: Aspirin EC 81 mg TAB.EC (enteric coated) PO SCH (08:23)
[2021-07-16] MEDS: CMCS: Cyclosporine 0.05% OPHTH (NF) 0.4 ML VIAL BOTH EYES SCH ×2 (08:24→20:02)
[2021-07-16] MEDS: Polyethylene Glycol 3350 17 GM PACKET PO SCH (08:25)
[2021-07-16] MEDS: Enoxaparin 40 MG/0.4 ML SYR SUBCUT SCH (19:44)
[2021-07-17] MEDS: Magnesium Hydroxide LIQ 30 ML UDC PO SCH ×2 (07:59→21:32)
[2021-07-17] MEDS: Polyethylene Glycol 3350 17 GM PACKET PO SCH (07:59)
[2021-07-17] MEDS: Aspirin EC 81 mg TAB.EC (enteric coated) PO SCH (08:00)
[2021-07-17] MEDS: Cholecalciferol (VIT D3) 1,000 unit TAB PO SCH (08:00)
[2021-07-17] MEDS: CMCS: Cyclosporine 0.05% OPHTH (NF) 0.4 ML VIAL BOTH EYES SCH ×2 (08:04→21:36)
[2021-07-17] MEDS: Enoxaparin 40 MG/0.4 ML SYR SUBCUT SCH (21:35)
[2021-07-18 07:41] VITALS: BP 114/56
[2021-07-18] MEDS: Aspirin EC 81 mg TAB.EC (enteric coated) PO SCH (08:18)
[2021-07-18] MEDS: Cholecalciferol (VIT D3) 1,000 unit TAB PO SCH (08:18)
[2021-07-18] MEDS: Magnesium Hydroxide LIQ 30 ML UDC PO SCH (08:19)
[2021-07-18] MEDS: Polyethylene Glycol 3350 17 GM PACKET PO SCH (08:20)
[2021-07-18] MEDS: CMCS: Cyclosporine 0.05% OPHTH (NF) 0.4 ML VIAL BOTH EYES SCH (08:33)
== END 2021-07-18 14:00 | disposition home or self-care (01) | DRG 690 ==
LOC: ED 23:31 → MED 23:31 → SUATTDRO 07-10 14:56 → MED 07-10 15:43 → SUATTDRO 07-12 10:23
PROVIDERS: ADMIT Internal Medicine; ATTEND Internal Medicine